=== PATIENT | female | born 1945 ===

== ENCOUNTER 2017-06-24 08:44 | Day surgery (SDC) | payer MEDICARE ==
[2017-06-24 09:30] VITALS: BMI 30.6
--- NOTE | 2017-06-24 10:34 | CP.SDSHP ---
Same Day Surgery H & P - History Proposed Procedure: COLONSCOPY Pre-Op Diagnosis: SCREENING - Previous Medical/Surgical History Cardiac: Hypertension Endocrine/Metabolic: Thyroid Disease, Diabetes, Other Neuro: Backaches Misc: Other Pain: 2.Mild Pain - Allergies Allergies: Allergies No Known Allergies Allergy (Verified 06/24/17 09:30) - Physical Exam General Appearance: N Vital Signs: Vital Signs 06/24/17 09:00 Temperature 98.2 F Pulse Rate 76 Respiratory 13 Rate Blood Pressure 180/79 H O2 Sat by Pulse 98 Oximetry Mental Status: Alert & Oriented x3 Neuro: WNL Heart: Other Lungs: WNL GI: WNL - {Optional Preform as Required} Breast: WNL Abdomen: Other Rectal: WNL Integument: WNL : WNL Ortho: Other ENT: WNL - Impression Pt. Evaluated Today:Candidate for Anesthesia & Procedure: Yes - Date & Time Time: 10:33 Short Stay Discharge - Short Stay Discharge Admitting Diagnosis/Reason for Visit: SCREENING Disposition: HOME/ ROUTINE
[2017-06-24] MEDS ORDERED: Propofol 10 mg/ml Inj (20 ML) ONE (10:38)
[2017-06-24 10:40] VITALS: O2SAT 100
[2017-06-24 11:06] VITALS: TEMP 98
[2017-06-24] MEDS ORDERED: Belladonna-Phenobarbital PO ONE (11:10)
[2017-06-24 12:08] VITALS: BP 152/63; PULSE 67; RESP 14
== END 2017-06-24 12:05 | disposition home or self-care (01) ==
LOC: C.ENDO 08:44
PROVIDERS: ATTEND Specialist
DX: Z12.11 Encounter for screening for malignant neoplasm of colon (principal); K64.4 Residual hemorrhoidal skin tags; K64.8 Other hemorrhoids; E11.9 Type 2 diabetes mellitus without complications; I10 Essential (primary) hypertension; K52.9 Noninfective gastroenteritis and colitis, unspecified
CPT/HCPCS: 45380; 82948; 88305; J2704

== ENCOUNTER 2017-09-18 14:21 | Emergency (ER) | payer MEDICARE ==
[2017-09-18 14:22] VITALS: BMI 30.6
[2017-09-18 14:37] VITALS: TEMP 97.9
[2017-09-18 15:38] LABS: BASO % 0.6 % (0.0-2.0); EOS # 0.3 K/uL (0.0-0.7); EOS % 5.2 % (0.0-4.0); HEMOGLOBIN 9.8 g/dL (11.0-16.0); LYMPH # 1.5 K/uL (1.0-4.3); MEAN CELL VOLUME 85.9 fL (81.0-99.0); MEAN CORPUSCULAR HEMOGLOBIN 29.6 pg (27.0-31.0); MEAN CORPUSCULAR HGB CONC 34.4 g/dL (33.0-37.0); MEAN PLATELET VOLUME 7.4 fL (7.2-11.7); MONO # 0.6 K/uL (0.0-0.8); MONO % 9.5 % (0.0-10.0); NEUT % 61.7 % (50.0-75.0); RBC 3.32 Mil/uL (3.80-5.20); RED CELL DISTRIBUTION WIDTH 14.4 % (11.5-14.5); WHITE BLOOD COUNT 6.4 K/uL (4.8-10.8)
[2017-09-18 15:54] LABS: ALB/GLOB RATIO 1.3 (1.0-2.1); ALBUMIN 4.1 g/dL (3.5-5.0); ALT/SGPT 21 U/L (9-52); AST/SGOT 27 U/L (14-36); BLOOD UREA NITROGEN 22 mg/dL (7-17); CALCIUM 9.4 mg/dl (8.6-10.4); GFR AFRICAN-AMERICAN 44; GFR NON-AFRICAN AMERICAN 37
[2017-09-18 16:04] LABS: B-TYPE NATRIURETIC PEPTIDE 162 pg/mL (0-900)
[2017-09-18 16:20] LABS: FREE T4 1.17 ng/dL (0.78-2.19)
--- NOTE | 2017-09-18 17:19 | VASCLAB ---
PROCEDURE: Lower Extremity Venous Duplex Exam. HISTORY: Pain/swelling r/o DVT PRIORS: Lower extremity duplex ultrasound dated 08/21/2016. TECHNIQUE: Bilateral common femoral, femoral, popliteal and posterior tibial, peroneal and great saphenous veins were evaluated. Flow was assessed with color Doppler, compressibility, assessment of phasic flow and augmentation response. Report prepared by Manish Gotti, JOHN, RVT FINDINGS: RIGHT: 1. Common Femoral Vein: 1.1. Compressibility - Fully compressible: Thrombus - None : Flow - Phasic: Augmentation -Normal: Reflux - None. 2. Femoral Vein: 2.1. Compressibility - Fully compressible: Thrombus - None : Flow - Phasic: Augmentation -Normal: Reflux - None. 3. Popliteal Vein: 3.1. Compressibility - Fully compressible: Thrombus - None : Flow - Phasic: Augmentation -Normal: Reflux - None. 4. Posterior Tibial Vein: 4.1. Compressibility - Fully compressible: Thrombus - None: Flow - Phasic: Augmentation -Normal: Reflux - None. 5. Peroneal Vein: 5.1. Compressibility - Fully compressible: Thrombus - None: Flow - Phasic: Augmentation -Normal: Reflux - None. 6. Great Saphenous Vein: 6.1. Compressibility - Fully compressible: Thrombus - None: Flow - Phasic: Augmentation - Normal: Reflux - None. LEFT: 1. Common Femoral Vein: 1.1. Compressibility - Fully compressible: Thrombus - None: Flow - Phasic: Augmentation -Normal: Reflux - None. 2. Femoral Vein: 2.1. Compressibility - Fully compressible: Thrombus - None: Flow - Phasic: Augmentation -Normal: Reflux - None. 3. Popliteal Vein: 3.1. Compressibility - Fully compressible: Thrombus - None : Flow - Phasic: Augmentation -Normal: Reflux - None. 4. Posterior Tibial Vein: 4.1. Compressibility - Fully compressible: Thrombus - None: Flow - Phasic: Augmentation -Normal: Reflux - None. 5. Peroneal Vein: 5.1. Compressibility - Fully compressible: Thrombus - None: Flow - Phasic: Augmentation -Normal: Reflux - None. 6. Great Saphenous Vein: 6.1. Compressibility - Fully compressible: Thrombus - None: Flow - Phasic: Augmentation - Normal: Reflux - None. OTHER FINDINGS: Right: None significant. Left: None significant. IMPRESSION: Right: No evidence of deep or superficial vein thrombosis of the right lower extremity. Normal valve function noted of the right side. Left: No evidence of deep or superficial vein thrombosis of the left lower extremity. Normal valve function noted of the left side.
[2017-09-18 17:23] LABS: SQUAMOUS EPITHIAL 1 /hpf (0-5); URINE BILIRUBIN NEGATIVE (NEGATIVE); URINE BLOOD NEGATIVE (NEGATIVE); URINE CLARITY Clear (Clear); URINE COLOR Colorless (YELLOW); URINE GLUCOSE (UA) NORMAL (Normal); URINE LEUKOCYTE ESTERASE 1+ Leu/uL (Negative); URINE PROTEIN NEGATIVE (NEGATIVE); URINE UROBILINOGEN NORMAL mg/dL (0.2-1.0)
[2017-09-18 17:31] VITALS: BP 143/69; PULSE 72; RESP 18
[2017-09-18 17:33] VITALS: O2SAT 98
--- NOTE | 2017-09-18 17:33 | C.PDOC ---
History Of Present Illness Pt c/o b/l LE swelling. Time Seen by Provider: 09/18/17 15:12 Chief Complaint (Nursing): Lower Extremity Problem/Injury History Per: Patient Onset/Duration Of Symptoms: Days (about 1 year) Current Symptoms Are (Timing): Still Present Severity: Moderate Associated Symptoms: Leg/Calf Pain, Ankle/Leg Swelling Additional History Per: Prior Records Past Medical History Reviewed: Historical Data, Nursing Documentation, Vital Signs Vital Signs: Last Vital Signs Temp 97.9 F 09/18/17 14:33 Pulse 66 09/18/17 16:05 Resp 16 09/18/17 16:05 BP 138/65 09/18/17 16:05 Pulse Ox 98 09/18/17 16:05 - Medical History PMH: Arthritis, Diabetes, Gastritis, HTN, Hypercholesterolemia, Hyperthyroidism , Hypothyroidism, Peripheral Edema Surgical History: Appendectomy, Cholecystectomy - [facility] Procedures EXCISION OF TOE NAIL, EXTERNAL APPROACH (09/10/16) EXERCISE TRMT MUSCULOSK UP BACK/UE W ASSIST EQUIP (09/10/16) FUSION 2-6 C JT W AUTOL SUB, ANT APPR A COL, OPEN (09/06/16) FUSION 2-6 C JT W INTBD FUS DEV, ANT APPR A COL, OPEN (09/06/16) GAIT TRAINING/AMBULAT TREATMENT USING ASSIST EQUIPMENT (09/10/16) GROOMING/PERSONAL HYGIENE TREATMENT USING ASSIST EQUIPMENT (09/10/16) HOME MANAGEMENT TREATMENT (08/26/16) ROM & JT MOBILITY TREATMENT OF MUSCULOSK LOW BACK/LE (08/26/16) THERAPEUTIC EXERCISE TREATMENT OF MUSCULOSK LOW BACK/LE (08/26/16) Family History: States: Unknown Family Hx - Social History Hx Tobacco Use: No Hx Alcohol Use: No Hx Substance Use: No - Immunization History Hx Tetanus Toxoid Vaccination: No Hx Influenza Vaccination: No Hx Pneumococcal Vaccination: Yes Review Of Systems Except As Marked, All Systems Reviewed And Found Negative. Constitutional: Negative for: Fever Cardiovascular: Positive for: Edema. Negative for: Chest Pain Respiratory: Negative for: Shortness of Breath, Hemoptysis Gastrointestinal: Negative for: Vomiting, Abdominal Pain Genitourinary: Negative for: Dysuria Musculoskeletal: Positive for: Leg Pain. Negative for: Neck Pain Skin: Negative for: Rash Neurological: Negative for: Weakness Physical Exam - Physical Exam Appears: Non-toxic, No Acute Distress Skin: Normal Color, Warm, Dry, No Rash Head: Atraumatic, Normacephalic Eye(s): bilateral: PERRL, EOMI Neck: Normal ROM, Supple Cardiovascular: Rhythm Regular Respiratory: Normal Breath Sounds, No Accessory Muscle Use Gastrointestinal/Abdominal: Soft, No Tenderness Extremity: Normal ROM, Pedal Edema (b/l) Pulses: Left Dorsalis Pedis: Normal, Right Dorsalis Pedis: Normal Neurological/Psych: Oriented x3, Normal Motor, Normal Sensation ED Course And Treatment - Laboratory Results Result Diagrams: 09/18/17 15:38 09/18/17 15:33 Lab Interpretation: No Changes Compared To Prior Results O2 Sat by Pulse Oximetry: 98 Pulse Ox Interpretation: Normal - CT Scan/US b/l LE duplex Other Rad Studies (CT/US): Read By Radiologist, Radiology Report Reviewed CT/US Interpretation: IMPRESSION: Right: No evidence of deep or superficial vein thrombosis of the right lower extremity. Normal valve function noted of the right side. Left: No evidence of deep or superficial vein thrombosis of the left lower extremity. Normal valve function noted of the left side. Progress - Interventions Interventions:: Observation - Medications Administered Intravenous: Diuretic - Data Reviewed Data Reviewed: Lab, Diagnostic imaging, Old records - Continuity of Care Discussed patient case with:: Patient, ED Nurse - Patient Plan Patient Plan: Discharge, F/U with PCP Medical Decision Making Medical Decision Making: Pt is already on Tosemide 100mg daily, will increase to 200mg daily (the maximum dose). Disposition Counseled Patient/Family Regarding: Studies Performed, Diagnosis, Need For Followup, Rx Given - Disposition Referrals: Sheila Hollis MD [Staff Provider] - Disposition: HOME/ ROUTINE Disposition Time: 17:36 Condition: FAIR Additional Instructions: Increase your Torsemide to 200mg daily. Follow up with your doctor within 1 week for further evaluation and treatment. Return to the ER if you develop worsening of symptoms or if you have any other concerns. Prescriptions: Torsemide [Demadex] 2 tab PO DAILY #60 tab Instructions: Dependent Edema (DC) Forms: [email or web address] (Maltese) Print Language: [email or web address] - Clinical Impression Clinical Impression: Bilateral lower extremity edema
--- NOTE | 2017-09-19 22:33 | CARD ---
APPROVED REPORT EKG Measurement Heart [id number] <Conclusion> Normal sinus rhythm Incomplete right bundle branch block Nonspecific T wave abnormality Prolonged QT Abnormal ECG
== END 2017-09-18 18:15 | disposition home or self-care (01) ==
LOC: C.ER 14:21
DX: R60.0 Localized edema (principal)
CPT/HCPCS: 80053; 81001; 82948; 83880; 84439; 84443; 84484; 85025; 93005; 93970; 96374; 99285; J1940

== ENCOUNTER 2017-09-24 18:04 | Inpatient (IN) | payer MEDICARE ==
[2017-09-24 18:04] VITALS: BMI 30.6
--- NOTE | 2017-09-24 18:22 | C.PDOC ---
History Of Present Illness 72-year-old female referred to the ED from office for increasing swelling of the bilateral lower extremities over the past 2-3 weeks. Patient also complains of dyspnea on exertion. No chest pain, dizziness, nausea, vomiting, fever, or weakness. Patient states she is compliant with all medications including Lasix. Time Seen by Provider: 09/24/17 18:21 Chief Complaint (Nursing): Lower Extremity Problem/Injury History Per: Patient History/Exam Limitations: no limitations Onset/Duration Of Symptoms: Days (x 3 weeks) Current Symptoms Are (Timing): Still Present Exacerbating Factor(s): Exertion Associated Symptoms: Ankle/Leg Swelling Reports Recently: Treated By A Physician Past Medical History Reviewed: Historical Data, Nursing Documentation, Vital Signs Vital Signs: Last Vital Signs Temp 98 F 09/24/17 18:07 Pulse 74 09/24/17 18:07 Resp 18 09/24/17 18:07 BP 155/75 H 09/24/17 18:07 Pulse Ox 99 09/24/17 18:35 - Medical History PMH: Arthritis, Diabetes, Gastritis, HTN, Hypercholesterolemia, Hyperthyroidism , Hypothyroidism, Peripheral Edema Denies: HIV, Chronic Kidney Disease Surgical History: Appendectomy, Cholecystectomy - [facility] Procedures EXCISION OF TOE NAIL, EXTERNAL APPROACH (09/10/16) EXERCISE TRMT MUSCULOSK UP BACK/UE W ASSIST EQUIP (09/10/16) FUSION 2-6 C JT W AUTOL SUB, ANT APPR A COL, OPEN (09/06/16) FUSION 2-6 C JT W INTBD FUS DEV, ANT APPR A COL, OPEN (09/06/16) GAIT TRAINING/AMBULAT TREATMENT USING ASSIST EQUIPMENT (09/10/16) GROOMING/PERSONAL HYGIENE TREATMENT USING ASSIST EQUIPMENT (09/10/16) HOME MANAGEMENT TREATMENT (08/26/16) ROM & JT MOBILITY TREATMENT OF MUSCULOSK LOW BACK/LE (08/26/16) THERAPEUTIC EXERCISE TREATMENT OF MUSCULOSK LOW BACK/LE (08/26/16) Family History: States: Unknown Family Hx - Social History Hx Tobacco Use: No Hx Alcohol Use: No Hx Substance Use: No - Immunization History Hx Tetanus Toxoid Vaccination: No Hx Influenza Vaccination: No Hx Pneumococcal Vaccination: Yes Review Of Systems Constitutional: Negative for: Fever, Weakness Cardiovascular: Negative for: Chest Pain Respiratory: Positive for: SOB with Excertion. Negative for: Cough Gastrointestinal: Negative for: Nausea, Vomiting Musculoskeletal: Positive for: Other (Bilateral lower leg swelling) Neurological: Negative for: Dizziness Physical Exam - Physical Exam Appears: Non-toxic, No Acute Distress, Other (appears mildly short of breath on exertion) Skin: Warm, Dry, No Rash Head: Atraumatic, Normacephalic Eye(s): bilateral: Normal Inspection, PERRL, EOMI Oral Mucosa: Moist Neck: Normal ROM Chest: Symmetrical Cardiovascular: Rhythm Regular, No Murmur Respiratory: Rales (at the bases bilaterally), No Rhonchi, No Wheezing Gastrointestinal/Abdominal: Soft, No Tenderness, No Distention Extremity: Normal ROM, No Calf Tenderness, No Deformity, Swelling (3+ pitting edema bilaterally) Pulses: Left Dorsalis Pedis: Normal, Right Dorsalis Pedis: Normal Neurological/Psych: Oriented x3, Normal Speech Gait: Steady ED Course And Treatment O2 Sat by Pulse Oximetry: 99 (RA) Pulse Ox Interpretation: Normal Progress Note: Initial orders: labs, EKG, chest x-ray. Patient given IV Lasix 60 mg x1 Progress - Re-Evaluation Re-evaluation Note: 09/24/17 18:21 D/W DR Bharat GUPTA STATES PT REFERRED FROM OFFICE FOR FAILED OUTPT CHF TX. ADMIT - Data Reviewed Data Reviewed: Lab, Diagnostic imaging, EKG, Old records Disposition Counseled Patient/Family Regarding: Diagnosis, Need For Followup - Disposition Disposition: HOSPITALIZED Disposition Time: 18:21 Condition: STABLE Forms: [facility] (Yi) - POA Present On Arrival: None - Clinical Impression Clinical Impression: CHF exacerbation - Scribe Statement The provider has reviewed the documentation as recorded by the Scribe (Kate Alfaro) Provider Attestation: All medical record entries made by the Scribe were at my direction and personally dictated by me. I have reviewed the chart and agree that the record accurately reflects my personal performance of the history, physical exam, medical decision making, and the department course for this patient. I have also personally directed, reviewed, and agree with the discharge instructions and disposition. Decision To Admit - Pt Status Changed To: Hospital Disposition Of: Observation - . Bed Request Type: Telemetry Admitting Physician: Sheila Gupta Patient Diagnosis: CHF exacerbation
[2017-09-24 18:46] LABS: BASO # 0.1 K/uL (0.0-0.2); BASO % 0.5 % (0.0-2.0); EOS % 0.1 % (0.0-4.0); HEMOGLOBIN 11.6 g/dL (11.0-16.0); LYMPH # 1.7 K/uL (1.0-4.3); LYMPH % 13.4 % (20.0-40.0); MEAN CELL VOLUME 85.3 fL (81.0-99.0); MEAN CORPUSCULAR HEMOGLOBIN 29.6 pg (27.0-31.0); MEAN CORPUSCULAR HGB CONC 34.7 g/dL (33.0-37.0); MEAN PLATELET VOLUME 7.4 fL (7.2-11.7); MONO # 0.8 K/uL (0.0-0.8); NEUT # 10.2 K/uL (1.8-7.0); RBC 3.92 Mil/uL (3.80-5.20); RED CELL DISTRIBUTION WIDTH 14.3 % (11.5-14.5)
[2017-09-24 18:51] LABS: ALB/GLOB RATIO 1.2 (1.0-2.1); ALBUMIN 5.1 g/dL (3.5-5.0); ALT/SGPT 26 U/L (9-52); AST/SGOT 37 U/L (14-36); BLOOD UREA NITROGEN 44 mg/dL (7-17); CALCIUM 9.1 mg/dl (8.6-10.4); GFR AFRICAN-AMERICAN 41; GFR NON-AFRICAN AMERICAN 34; WHITE BLOOD COUNT 12.7 K/uL (4.8-10.8)
[2017-09-24 18:57] LABS: B-TYPE NATRIURETIC PEPTIDE 312 pg/mL (0-900)
[2017-09-25] MEDS: Levothyroxine 50 MCG TAB PO SCH (05:50)
--- NOTE | 2017-09-25 08:18 | RAD ---
Chest x-ray single frontal view History: Shortness of breath Comparison: 08/21/2016 Findings: Patchy left basilar airspace opacity with a suggestion of a trace left pleural effusion. Mild venous congestion. Upper lobe granulomatous changes. Scoliotic curvature of the spine. Calcification of the aortic arch. Degenerative changes in the spine and shoulders. Impression: Patchy left basilar airspace opacity with a suggestion of a trace left pleural effusion. Mild venous congestion. Upper lobe granulomatous changes. Scoliotic curvature of the spine. Calcification of the aortic arch.
[2017-09-25] MEDS: Pantoprazole 40 mg EC Tab PO SCH (09:35)
[2017-09-25] MEDS: Diclofenac Sodium Delayed Release 75 mg EC Tab PO SCH (09:35)
[2017-09-25] MEDS ORDERED: Enoxaparin 40 mg Syringe SC SCH (10:00)
[2017-09-25 14:59] LABS: CALCIUM 9.6 mg/dl (8.6-10.4)
[2017-09-25 16:47] VITALS: RESP 20
[2017-09-25] MEDS: (Novolog) Insulin Aspart, Recombinant 100 u/ml 10 ml vial SC SCH ×2 (17:20→21:39)
--- NOTE | 2017-09-25 18:19 | CP.PCM.CON ---
History of Present Illness - History of Present Illness History of Present Illness: 72-year-old female referred to the ED from office for increasing swelling of the bilateral lower extremities over the past 2-3 weeks. Patient also complains of dyspnea on exertion. No chest pain, dizziness, nausea, vomiting, fever, or weakness. Patient states she is compliant with all medications including Lasix. 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 HTN 3). DM 2 4). Hypothyroid 5). HLD 6. CKD currently stage IV Review of Systems - Review of Systems All systems: reviewed and no additional remarkable complaints except Past Patient History - Infectious Disease Hx of Infectious Diseases: None - Past Medical History & Family History Past Medical History?: Yes - Past Social History Smoking Status: Never Smoked - CARDIAC Hx Hypercholesterolemia: Yes Hx Hypertension: Yes Hx Peripheral Edema: Yes - PULMONARY Hx Respiratory Disorders: No - NEUROLOGICAL Hx Neurological Disorder: No - HEENT Hx HEENT Problems: Yes Hx Deafness: Yes (right ear) - RENAL Hx Chronic Kidney Disease: No - ENDOCRINE/METABOLIC Hx Hyperthyroidism: Yes Hx Hypothyroidism: Yes - HEMATOLOGICAL/ONCOLOGICAL Hx Human Immunodeficiency Virus (HIV): No - INTEGUMENTARY Hx Dermatological Problems: No - MUSCULOSKELETAL/RHEUMATOLOGICAL Hx Arthritis: Yes - GASTROINTESTINAL Hx Gastritis: Yes - GENITOURINARY/GYNECOLOGICAL Hx Genitourinary Disorders: No - PSYCHIATRIC Hx Substance Use: No - SURGICAL HISTORY Hx Appendectomy: Yes Hx Cholecystectomy: Yes - ANESTHESIA Hx Anesthesia: Yes Hx Anesthesia Reactions: Yes (too sleepy) Hx Malignant Hyperthermia: No Meds Allergies/Adverse Reactions: Allergies Allergy/AdvReac Type Severity Reaction Status Date / Time No Known Allergies Allergy Verified 06/24/17 09:30 - Medications Medications: Current Medications Carvedilol (Coreg) 3.125 mg PO DAILY [facility] Last Admin: 09/25/17 09:35 Dose: 3.125 mg Diclofenac Sodium (Voltaren) 75 mg PO DAILY [facility] Last Admin: 09/25/17 09:35 Dose: 75 mg Enoxaparin Sodium (Lovenox) 40 mg SC DAILY [facility] Last Admin: 09/25/17 09:35 Dose: 40 mg Ergocalciferol (Drisdol 50,000 Intl Units Cap) 1 cap PO QWK [facility] Folic Acid (Folic Acid) 1 mg PO DAILY [facility] Last Admin: 09/25/17 09:35 Dose: 1 mg Furosemide (Lasix) 60 mg IVP Q12 [facility] Last Admin: 09/25/17 09:36 Dose: 60 mg Gabapentin (Neurontin) 600 mg PO DAILY [facility] Last Admin: 09/25/17 09:33 Dose: 600 mg Glimepiride (Amaryl) 2 mg PO DAILY [facility] Last Admin: 09/25/17 09:35 Dose: 2 mg Insulin Aspart (Novolog) 0 unit SC ACHS [facility] PRN Reason: Protocol Last Admin: 09/25/17 17:20 Dose: Not Given Levothyroxine Sodium (Synthroid) 50 mcg PO DAILY@0630 [facility] Last Admin: 09/25/17 05:50 Dose: 50 mcg Pantoprazole Sodium (Protonix Ec Tab) 40 mg PO DAILY [facility] Last Admin: 09/25/17 09:35 Dose: 40 mg Rosuvastatin Calcium (Crestor) 10 mg PO [facility] Sitagliptin Phosphate (Januvia) 100 mg PO DAILY [facility] Last Admin: 09/25/17 09:35 Dose: 100 mg Physical Exam - Constitutional Appears: No Acute Distress - Head Exam Head Exam: ATRAUMATIC, NORMAL INSPECTION, NORMOCEPHALIC - Eye Exam Eye Exam: EOMI, Normal appearance, PERRL - ENT Exam ENT Exam: Mucous Membranes Moist, Normal Oropharynx - Neck Exam Neck exam: Positive for: Full Rom, Normal Inspection. Negative for: Tenderness - Respiratory Exam Respiratory Exam: Clear to Auscultation Bilateral, NORMAL BREATHING PATTERN. absent: Rales, Rhonchi, Wheezes - Cardiovascular Exam Cardiovascular Exam: REGULAR RHYTHM, +S1, +S2. absent: +S4, Systolic Murmur - GI/Abdominal Exam GI & Abdominal Exam: Normal Bowel Sounds, Soft. absent: Tenderness - Extremities Exam Extremities exam: Positive for: normal inspection, pedal pulses present. Negative for: full ROM (arthritic changes in the knees B/L), pedal edema, tenderness - Neurological Exam Neurological exam: Alert, Oriented x3 - Psychiatric Exam Psychiatric exam: Normal Affect, Normal Mood - Skin Skin Exam: Normal Color, Warm Results - Vital Signs Recent Vital Signs: Last Vital Signs Temp 98.1 F 09/25/17 15:20 Pulse 55 L 09/25/17 15:59 Resp 20 09/25/17 15:20 BP 111/68 09/25/17 15:20 Pulse Ox 97 04/12/18 15:20 - Labs Result Diagrams: 09/24/17 18:29 09/25/17 14:06 Labs: Laboratory Results - last 24 hr 09/24/17 09/24/17 09/24/17 18:29 18:29 21:20 WBC 12.7 H D RBC 3.92 Hgb 11.6 Hct 33.5 L MCV 85.3 MCH 29.6 MCHC 34.7 RDW 14.3 Plt Count 280 MPV 7.4 Neut % (Auto) 80.0 H Lymph % (Auto) 13.4 L Placer % (Auto) 6.0 Eos % (Auto) 0.1 Baso % (Auto) 0.5 Neut # (Auto) 10.2 H Lymph # (Auto) 1.7 Placer # (Auto) 0.8 Eos # (Auto) 0.0 Baso # (Auto) 0.1 Sodium 130 L Potassium 5.6 H Chloride 84 L Carbon Dioxide 27 Anion Gap 24 H BUN 44 H Creatinine 1.5 H Est GFR ( Amer) 41 Est GFR (Non-Af Amer) 34 POC Glucose (mg/dL) 181 H Random Glucose 188 H Calcium 9.1 Total Bilirubin 1.3 AST 37 H D ALT 26 Alkaline Phosphatase 79 Troponin I < 0.0120 NT-Pro-B Natriuret Pep 312 Total Protein 9.5 H Albumin 5.1 H D Globulin 4.4 H Albumin/Globulin Ratio 1.2 09/25/17 09/25/17 09/25/17 06:10 11:16 14:06 WBC RBC Hgb Hct MCV MCH MCHC RDW Plt Count MPV Neut % (Auto) Lymph % (Auto) Placer % (Auto) Eos % (Auto) Baso % (Auto) Neut # (Auto) Lymph # (Auto) Placer # (Auto) Eos # (Auto) Baso # (Auto) Sodium 135 Potassium 3.9 Chloride 86 L Carbon Dioxide 33 H Anion Gap 20 BUN 50 H Creatinine 1.8 H Est GFR ( Amer) 33 Est GFR (Non-Af Amer) 28 POC Glucose (mg/dL) 99 138 H Random Glucose 162 H Calcium 9.6 Total Bilirubin AST ALT Alkaline Phosphatase Troponin I NT-Pro-B Natriuret Pep Total Protein Albumin Globulin Albumin/Globulin Ratio 09/25/17 16:25 WBC RBC Hgb Hct MCV MCH MCHC RDW Plt Count MPV Neut % (Auto) Lymph % (Auto) Placer % (Auto) Eos % (Auto) Baso % (Auto) Neut # (Auto) Lymph # (Auto) Placer # (Auto) Eos # (Auto) Baso # (Auto) Sodium Potassium Chloride Carbon Dioxide Anion Gap BUN Creatinine Est GFR ( Amer) Est GFR (Non-Af Amer) POC Glucose (mg/dL) 95 Random Glucose Calcium Total Bilirubin AST ALT Alkaline Phosphatase Troponin I NT-Pro-B Natriuret Pep Total Protein Albumin Globulin Albumin/Globulin Ratio - EKG Data EKG Interpreted by: Myself - Imaging and Cardiology Chest x-ray Status: Image reviewed by me Assessment & Plan - Assessment and Plan (Free Text) Assessment: HTN controlled, DM uncontrolled, LIPIDS on statin, CKD IV progressed over 1 year, Hypothyroid on rx, cervical DJD s/p surgery 08/2016 cervical SOB Unclear in etiology Echo 08/2016 directly viewed by me: Normal EF, BDLN LVH, grade 1 diastolic dysfunction > EKG this admission was Normal > CXRAY: mild congestion > LA ruled out > BNP not in range for systolic CHF MEDS: Carvedilol (Coreg) 3.125 mg PO DAILY [facility] Last Admin: 09/25/17 09:35 Dose: 3.125 mg Diclofenac Sodium (Voltaren) 75 mg PO DAILY [facility] Last Admin: 09/25/17 09:35 Dose: 75 mg Enoxaparin Sodium (Lovenox) 40 mg SC DAILY [facility] Last Admin: 09/25/17 09:35 Dose: 40 mg Ergocalciferol (Drisdol 50,000 Intl Units Cap) 1 cap PO QWK [facility] Folic Acid (Folic Acid) 1 mg PO DAILY [facility] Last Admin: 09/25/17 09:35 Dose: 1 mg Furosemide (Lasix) 60 mg IVP Q12 [facility] Last Admin: 09/25/17 09:36 Dose: 60 mg Gabapentin (Neurontin) 600 mg PO DAILY [facility] Last Admin: 09/25/17 09:33 Dose: 600 mg Glimepiride (Amaryl) 2 mg PO DAILY [facility] Last Admin: 09/25/17 09:35 Dose: 2 mg Insulin Aspart (Novolog) 0 unit SC ACHS [facility] PRN Reason: Protocol Last Admin: 09/25/17 17:20 Dose: Not Given Levothyroxine Sodium (Synthroid) 50 mcg PO DAILY@0630 [facility] Last Admin: 09/25/17 05:50 Dose: 50 mcg Pantoprazole Sodium (Protonix Ec Tab) 40 mg PO DAILY [facility] Last Admin: 09/25/17 09:35 Dose: 40 mg Rosuvastatin Calcium (Crestor) 10 mg PO HS [facility] Sitagliptin Phosphate (Januvia) 100 mg PO DAILY [facility] Last Admin: 09/25/17 09:35 Dose: 100 mg Consider diastolic dysfunction as cause, consider secondary to arthritis or venous insufficiency > suggest repeat echo to evaluate cardiac stucture and function given acute change as well as measure LAP and PASP. > Patient has responded well to lasix IV, continue maintainence lasis 40 as outpatient > Normal EKG and negative cardiac enzymes; given CAD risk factors will benefit from outpatient re-eval and stress testing. > I would also suggest evaluation for venous insufficiency and reflux: this can be done by us as outpatient. > add ASA 81 > DVT prophylaxis
--- NOTE | 2017-09-25 18:41 | CP.PCM.HP ---
Past Patient History - Infectious Disease Hx of Infectious Diseases: None - Past Medical History & Family History Past Medical History?: Yes - Past Social History Smoking Status: Never Smoked - CARDIAC Hx Hypercholesterolemia: Yes Hx Hypertension: Yes Hx Peripheral Edema: Yes - PULMONARY Hx Respiratory Disorders: No - NEUROLOGICAL Hx Neurological Disorder: No - HEENT Hx HEENT Problems: Yes Hx Deafness: Yes (right ear) - RENAL Hx Chronic Kidney Disease: No - ENDOCRINE/METABOLIC Hx Hyperthyroidism: Yes Hx Hypothyroidism: Yes - HEMATOLOGICAL/ONCOLOGICAL Hx Human Immunodeficiency Virus (HIV): No - INTEGUMENTARY Hx Dermatological Problems: No - MUSCULOSKELETAL/RHEUMATOLOGICAL Hx Arthritis: Yes - GASTROINTESTINAL Hx Gastritis: Yes - GENITOURINARY/GYNECOLOGICAL Hx Genitourinary Disorders: No - PSYCHIATRIC Hx Substance Use: No - SURGICAL HISTORY Hx Appendectomy: Yes Hx Cholecystectomy: Yes - ANESTHESIA Hx Anesthesia: Yes Hx Anesthesia Reactions: Yes (too sleepy) Hx Malignant Hyperthermia: No Meds Allergies/Adverse Reactions: Allergies Allergy/AdvReac Type Severity Reaction Status Date / Time No Known Allergies Allergy Verified 06/24/17 09:30 Physical Exam - Constitutional Appears: Well - Head Exam Head Exam: ATRAUMATIC, NORMAL INSPECTION, NORMOCEPHALIC - Eye Exam Eye Exam: EOMI, Normal appearance, PERRL Pupil Exam: NORMAL ACCOMODATION, PERRL - ENT Exam ENT Exam: Mucous Membranes Moist, Normal Exam - Neck Exam Neck exam: Positive for: Normal Inspection - Respiratory Exam Respiratory Exam: Decreased Breath Sounds - Cardiovascular Exam Cardiovascular Exam: REGULAR RHYTHM, +S1 - GI/Abdominal Exam GI & Abdominal Exam: Diminished Bowel Sounds, Soft - Rectal Exam Rectal Exam: Deferred Results - Vital Signs Recent Vital Signs: Last Vital Signs Temp 98.1 F 09/25/17 15:20 Pulse 55 L 09/25/17 15:59 Resp 20 09/25/17 15:20 BP 111/68 09/25/17 15:20 Pulse Ox 97 09/25/17 15:20 - Labs Result Diagrams: 09/24/17 18:29 09/25/17 14:06 Labs: Laboratory Results - last 24 hr 09/24/17 09/24/17 09/24/17 18:29 18:29 21:20 WBC 12.7 H D RBC 3.92 Hgb 11.6 Hct 33.5 L MCV 85.3 MCH 29.6 MCHC 34.7 RDW 14.3 Plt Count 280 MPV 7.4 Neut % (Auto) 80.0 H Lymph % (Auto) 13.4 L [place] % (Auto) 6.0 Eos % (Auto) 0.1 Baso % (Auto) 0.5 Neut # (Auto) 10.2 H Lymph # (Auto) 1.7 [place] # (Auto) 0.8 Eos # (Auto) 0.0 Baso # (Auto) 0.1 Sodium 130 L Potassium 5.6 H Chloride 84 L Carbon Dioxide 27 Anion Gap 24 H BUN 44 H Creatinine 1.5 H Est GFR ( Amer) 41 Est GFR (Non-Af Amer) 34 POC Glucose (mg/dL) 181 H Random Glucose 188 H Calcium 9.1 Total Bilirubin 1.3 AST 37 H D ALT 26 Alkaline Phosphatase 79 Troponin I < 0.0120 NT-Pro-B Natriuret Pep 312 Total Protein 9.5 H Albumin 5.1 H D Globulin 4.4 H Albumin/Globulin Ratio 1.2 09/25/17 09/25/17 09/25/17 06:10 11:16 14:06 WBC RBC Hgb Hct MCV MCH MCHC RDW Plt Count MPV Neut % (Auto) Lymph % (Auto) [place] % (Auto) Eos % (Auto) Baso % (Auto) Neut # (Auto) Lymph # (Auto) [place] # (Auto) Eos # (Auto) Baso # (Auto) Sodium 135 Potassium 3.9 Chloride 86 L Carbon Dioxide 33 H Anion Gap 20 BUN 50 H Creatinine 1.8 H Est GFR ( Amer) 33 Est GFR (Non-Af Amer) 28 POC Glucose (mg/dL) 99 138 H Random Glucose 162 H Calcium 9.6 Total Bilirubin AST ALT Alkaline Phosphatase Troponin I NT-Pro-B Natriuret Pep Total Protein Albumin Globulin Albumin/Globulin Ratio 09/25/17 16:25 WBC RBC Hgb Hct MCV MCH MCHC RDW Plt Count MPV Neut % (Auto) Lymph % (Auto) [place] % (Auto) Eos % (Auto) Baso % (Auto) Neut # (Auto) Lymph # (Auto) [place] # (Auto) Eos # (Auto) Baso # (Auto) Sodium Potassium Chloride Carbon Dioxide Anion Gap BUN Creatinine Est GFR ( Amer) Est GFR (Non-Af Amer) POC Glucose (mg/dL) 95 Random Glucose Calcium Total Bilirubin AST ALT Alkaline Phosphatase Troponin I NT-Pro-B Natriuret Pep Total Protein Albumin Globulin Albumin/Globulin Ratio
[2017-09-26] MEDS: Levothyroxine 50 MCG TAB PO SCH (05:59)
[2017-09-26] MEDS: (Novolog) Insulin Aspart, Recombinant 100 u/ml 10 ml vial SC SCH ×4 (08:07→22:50)
[2017-09-26] MEDS ORDERED: Enoxaparin 30 mg Syringe SC SCH (10:00)
[2017-09-26] MEDS: Pantoprazole 40 mg EC Tab PO SCH (10:11)
[2017-09-26] MEDS ORDERED: Magnesium Hydroxide Susp 30 ml UD PO ONE (11:52)
[2017-09-26] MEDS: Diclofenac Sodium Delayed Release 75 mg EC Tab PO SCH (11:55)
--- NOTE | 2017-09-26 14:36 | CP.PCM.PN ---
Subjective - Date & Time of Evaluation Date of Evaluation: 09/26/17 Time of Evaluation: 14:33 - Subjective Subjective: Events Reviewed Objective - Vital Signs/Intake and Output Vital Signs (last 24 hours): Temp Pulse Resp BP Pulse Ox 98 F 73 20 117/66 98 09/26/17 07:00 09/26/17 12:38 09/26/17 07:00 09/26/17 10:09 09/26/17 10:00 Intake and Output: 09/26/17 09/26/17 06:59 18:59 Intake Total 420 Balance 420 - Medications Medications: Current Medications Acetaminophen (Tylenol 325mg Tab) 650 mg PO Q6 PRN PRN Reason: Pain, Mild (1-3) Last Admin: 09/25/17 21:35 Dose: 650 mg Carvedilol (Coreg) 3.125 mg PO DAILY [facility] Last Admin: 09/26/17 10:11 Dose: 3.125 mg Diclofenac Sodium (Voltaren) 75 mg PO DAILY [facility] Last Admin: 09/26/17 11:55 Dose: 75 mg Docusate Sodium (Colace) 100 mg PO BID [facility] Last Admin: 09/26/17 11:58 Dose: 100 mg Enoxaparin Sodium (Lovenox) 30 mg SC DAILY [facility] Last Admin: 09/26/17 10:09 Dose: 30 mg Ergocalciferol (Drisdol 50,000 Intl Units Cap) 1 cap PO QWK [facility] Folic Acid (Folic Acid) 1 mg PO DAILY [facility] Last Admin: 09/26/17 10:10 Dose: 1 mg Furosemide (Lasix) 60 mg IVP Q12 [facility] Last Admin: 09/26/17 10:09 Dose: 60 mg Gabapentin (Neurontin) 600 mg PO DAILY [facility] Last Admin: 09/26/17 10:10 Dose: 600 mg Glimepiride (Amaryl) 2 mg PO DAILY [facility] Last Admin: 09/26/17 10:10 Dose: 2 mg Insulin Aspart (Novolog) 0 unit SC ACHS [facility] PRN Reason: Protocol Last Admin: 09/26/17 11:35 Dose: Not Given Levothyroxine Sodium (Synthroid) 50 mcg PO DAILY@0630 [facility] Last Admin: 09/26/17 05:59 Dose: 50 mcg Pantoprazole Sodium (Protonix Ec Tab) 40 mg PO DAILY [facility] Last Admin: 09/26/17 10:11 Dose: 40 mg Rosuvastatin Calcium (Crestor) 10 mg PO HS [facility] Last Admin: 09/25/17 21:35 Dose: 10 mg Sitagliptin Phosphate (Januvia) 100 mg PO DAILY [facility] Last Admin: 09/26/17 10:11 Dose: 100 mg - Labs Labs: 09/24/17 18:29 09/25/17 14:06 Assessment and Plan - Assessment and Plan (Free Text) Assessment: Assessment: HTN controlled, DM uncontrolled, LIPIDS on statin, CKD IV progressed over 1 year, Hypothyroid on rx, cervical DJD s/p surgery 08/2016 cervical SOB Unclear in etiology Echo 08/2016 directly viewed by me: Normal EF, BDLN LVH, grade 1 diastolic dysfunction > EKG this admission was Normal > CXRAY: mild congestion > DE ruled out > BNP not in range for systolic CHF Consider diastolic dysfunction as cause, consider secondary to arthritis or venous insufficiency > repeat echo to evaluate cardiac stucture and function shows normal left atrial filling pressures suggesting this is not due to diastolic CHF. > Patient has responded well to lasix IV, continue maintainence lasis 40 as outpatient > Normal EKG and negative cardiac enzymes; given CAD risk factors will benefit from outpatient re-eval and stress testing. > I would also suggest evaluation for venous insufficiency and reflux: this can be done by us as outpatient should be done while patient is standing, 20- 30mmhg compression stockings will be helpful. > Continue ASA 81 > DVT prophylaxis
--- NOTE | 2017-09-26 15:04 | VASCLAB ---
PROCEDURE: Lower Extremity Venous Duplex Exam. HISTORY: LE swelling PRIORS: Lower extremity ultrasound dated 09/18/2017. TECHNIQUE: Bilateral common femoral, femoral, popliteal and posterior tibial, peroneal and great saphenous veins were evaluated. Flow was assessed with color Doppler, compressibility, assessment of phasic flow and augmentation response. Report prepared by Manish Gotti, JOHN, RVT FINDINGS: RIGHT: 1. Common Femoral Vein: 1.1. Compressibility - Fully compressible: Thrombus - None : Flow - Phasic: Augmentation -Normal: Reflux - None. 2. Femoral Vein: 2.1. Compressibility - Fully compressible: Thrombus - None : Flow - Phasic: Augmentation -Normal: Reflux - None. 3. Popliteal Vein: 3.1. Compressibility - Fully compressible: Thrombus - None : Flow - Phasic: Augmentation -Normal: Reflux - None. 4. Posterior Tibial Vein: 4.1. Compressibility - Fully compressible: Thrombus - None: Flow - Phasic: Augmentation -Normal: Reflux - None. 5. Peroneal Vein: 5.1. Compressibility - Fully compressible: Thrombus - None: Flow - Phasic: Augmentation -Normal: Reflux - None. 6. Great Saphenous Vein: 6.1. Compressibility - Fully compressible: Thrombus - None: Flow - Phasic: Augmentation - Normal: Reflux - None. LEFT: 1. Common Femoral Vein: 1.1. Compressibility - Fully compressible: Thrombus - None: Flow - Phasic: Augmentation -Normal: Reflux - None. 2. Femoral Vein: 2.1. Compressibility - Fully compressible: Thrombus - None: Flow - Phasic: Augmentation -Normal: Reflux - None. 3. Popliteal Vein: 3.1. Compressibility - Fully compressible: Thrombus - None : Flow - Phasic: Augmentation -Normal: Reflux - None. 4. Posterior Tibial Vein: 4.1. Compressibility - Fully compressible: Thrombus - None: Flow - Phasic: Augmentation -Normal: Reflux - None. 5. Peroneal Vein: 5.1. Compressibility - Fully compressible: Thrombus - None: Flow - Phasic: Augmentation -Normal: Reflux - None. 6. Great Saphenous Vein: 6.1. Compressibility - Fully compressible: Thrombus - None: Flow - Phasic: Augmentation - Normal: Reflux - None. OTHER FINDINGS: Right: None significant. Left: None significant. IMPRESSION: Right: No evidence of deep or superficial vein thrombosis of the right lower extremity. Normal valve function noted of the right side. Left: No evidence of deep or superficial vein thrombosis of the left lower extremity. Normal valve function noted of the left side.
--- NOTE | 2017-09-26 15:30 | CP.PCM.PN ---
Subjective - Date & Time of Evaluation Date of Evaluation: 09/26/17 Time of Evaluation: 15:27 - Subjective Subjective: PGY2 progress note for Dr. Hollis 72 year old female with past medical history of DM, HTN, hypothyroid, HLD, CKD stage IV was admitted for possible CHF exacerbation. ProBNP on admission was normal. CXR on admission showed patchy left basilar airspace opacity. Pt seen and examined at bedside. No acute events overnight. Pt is resting comfortably. Pt states that her breathing has improved considerably along with the swelling in her legs. denies having any CP, SOB, abd pain, N/V/D/C, F/C, LE pain. Objective - Vital Signs/Intake and Output Vital Signs (last 24 hours): Temp Pulse Resp BP Pulse Ox 98 F 73 20 117/66 98 09/26/17 07:00 09/26/17 12:38 09/26/17 07:00 09/26/17 10:09 09/26/17 13:00 Intake and Output: 09/26/17 09/26/17 06:59 18:59 Intake Total 420 600 Balance 420 600 - Medications Medications: Current Medications Acetaminophen (Tylenol 325mg Tab) 650 mg PO Q6 PRN PRN Reason: Pain, Mild (1-3) Last Admin: 09/25/17 21:35 Dose: 650 mg Carvedilol (Coreg) 3.125 mg PO DAILY [facility] Last Admin: 09/26/17 10:11 Dose: 3.125 mg Diclofenac Sodium (Voltaren) 75 mg PO DAILY [facility] Last Admin: 09/26/17 11:55 Dose: 75 mg Docusate Sodium (Colace) 100 mg PO BID [facility] Last Admin: 09/26/17 11:58 Dose: 100 mg Enoxaparin Sodium (Lovenox) 30 mg SC DAILY [facility] Last Admin: 09/26/17 10:09 Dose: 30 mg Ergocalciferol (Drisdol 50,000 Intl Units Cap) 1 cap PO QWK [facility] Folic Acid (Folic Acid) 1 mg PO DAILY [facility] Last Admin: 09/26/17 10:10 Dose: 1 mg Furosemide (Lasix) 60 mg IVP Q12 [facility] Last Admin: 09/26/17 10:09 Dose: 60 mg Gabapentin (Neurontin) 600 mg PO DAILY [facility] Last Admin: 04/13/18 10:10 Dose: 600 mg Glimepiride (Amaryl) 2 mg PO DAILY [facility] Last Admin: 09/26/17 10:10 Dose: 2 mg Insulin Aspart (Novolog) 0 unit SC [facility] PRN Reason: Protocol Last Admin: 09/26/17 11:35 Dose: Not Given Levothyroxine Sodium (Synthroid) 50 mcg PO DAILY@0630 [facility] Last Admin: 09/26/17 05:59 Dose: 50 mcg Pantoprazole Sodium (Protonix Ec Tab) 40 mg PO DAILY [facility] Last Admin: 09/26/17 10:11 Dose: 40 mg Rosuvastatin Calcium (Crestor) 10 mg PO HS [facility] Last Admin: 09/25/17 21:35 Dose: 10 mg Sitagliptin Phosphate (Januvia) 100 mg PO DAILY [facility] Last Admin: 09/26/17 10:11 Dose: 100 mg - Labs Labs: 09/24/17 18:29 09/25/17 14:06 - Constitutional Appears: Non-toxic, No Acute Distress - ENT Exam ENT Exam: Mucous Membranes Moist - Respiratory Exam Respiratory Exam: Clear to Ausculation Bilateral. absent: Accessory Muscle Use , Rales, Rhonchi, Wheezes, Respiratory Distress - Cardiovascular Exam Cardiovascular Exam: REGULAR RHYTHM, +S1, +S2. absent: Gallop, Rubs, Murmur - GI/Abdominal Exam GI & Abdominal Exam: Soft, Normal Bowel Sounds. absent: Distended, Firm, Guarding, Rigid, Tenderness, Organomegaly - Extremities Exam Extremities Exam: absent: Pedal Edema, Tenderness - Neurological Exam Neurological Exam: Alert, Awake, Oriented x3 - Psychiatric Exam Psychiatric exam: Normal Affect, Normal Mood - Skin Skin Exam: Dry, Intact, Normal Color, Warm Assessment and Plan - Assessment and Plan (Free Text) Assessment: CHF exacerbation - ProBNP on admission was normal - Cardiology is consulted. Per cardiology note, echo showed normal LA filling pressure suggesting that this is not diastolic CHF. - Pt was placed on Lasixs. Per cardio recs, will continue Lasixs po 40 mg - CXR on admission showed patchy left basilar airspace opacity with suggestion of trace left pleural effusion - Pt also has WBC count on admission - will consider repeating CXR HTN - Continue coreg, Lasixs HLD - continue Rosuvastatin DM - Continue home medications: Glimepiride, Januvia - ISS - Accuchecks ACHS Hypothyroid - Continue Levothyroxine 50 mch Diabetes neuropathy - Continue gabapentin Prophylaxis - Protonix - Lovenox All managements and orders per Dr. Hollis
--- NOTE | 2017-09-26 16:15 | RAD ---
HISTORY: Pleural effusion COMPARISON: 09/24/2017 FINDINGS: LUNGS: The lungs are well inflated and clear. PLEURA: No significant pleural effusion identified, no pneumothorax apparent. CARDIOVASCULAR: There is mild cardiomegaly. OSSEOUS STRUCTURES: No significant abnormalities. VISUALIZED UPPER ABDOMEN: Normal. OTHER FINDINGS: None. IMPRESSION: No active pulmonary disease.
--- NOTE | 2017-09-26 16:31 | CP.PCM.PN ---
Subjective - Date & Time of Evaluation Date of Evaluation: 09/26/17 Time of Evaluation: 11:40 - Subjective Subjective: clinically Objective - Vital Signs/Intake and Output Vital Signs (last 24 hours): Temp Pulse Resp BP Pulse Ox 98.9 F 62 20 99/63 L 97 09/26/17 15:56 09/26/17 16:00 09/26/17 15:56 09/26/17 15:56 09/26/17 15:56 Intake and Output: 09/26/17 09/26/17 06:59 18:59 Intake Total 420 600 Balance 420 600 - Medications Medications: Current Medications Acetaminophen (Tylenol 325mg Tab) 650 mg PO Q6 PRN PRN Reason: Pain, Mild (1-3) Last Admin: 09/25/17 21:35 Dose: 650 mg Carvedilol (Coreg) 3.125 mg PO DAILY [facility] Last Admin: 09/26/17 10:11 Dose: 3.125 mg Diclofenac Sodium (Voltaren) 75 mg PO DAILY [facility] Last Admin: 09/26/17 11:55 Dose: 75 mg Docusate Sodium (Colace) 100 mg PO BID [facility] Last Admin: 09/26/17 11:58 Dose: 100 mg Ergocalciferol (Drisdol 50,000 Intl Units Cap) 1 cap PO QWK [facility] Folic Acid (Folic Acid) 1 mg PO DAILY [facility] Last Admin: 09/26/17 10:10 Dose: 1 mg Furosemide (Lasix) 40 mg IVP DAILY [facility] Gabapentin (Neurontin) 600 mg PO DAILY [facility] Last Admin: 09/26/17 10:10 Dose: 600 mg Glimepiride (Amaryl) 2 mg PO DAILY [facility] Last Admin: 09/26/17 10:10 Dose: 2 mg Heparin Sodium (Porcine) (Heparin) 5,000 units SC Q12 [facility] Insulin Aspart (Novolog) 0 unit SC ACHS [facility] PRN Reason: Protocol Last Admin: 09/26/17 11:35 Dose: Not Given Levothyroxine Sodium (Synthroid) 50 mcg PO DAILY@0630 [facility] Last Admin: 09/26/17 05:59 Dose: 50 mcg Pantoprazole Sodium (Protonix Ec Tab) 40 mg PO DAILY [facility] Last Admin: 09/26/17 10:11 Dose: 40 mg Rosuvastatin Calcium (Crestor) 10 mg PO HS [facility] Last Admin: 09/25/17 21:35 Dose: 10 mg Sitagliptin Phosphate (Januvia) 100 mg PO DAILY [facility] Last Admin: 09/26/17 10:11 Dose: 100 mg - Labs Labs: 09/24/17 18:29 09/25/17 14:06 - Constitutional Appears: Well - Head Exam Head Exam: ATRAUMATIC, NORMAL INSPECTION, NORMOCEPHALIC - Eye Exam Eye Exam: EOMI, Normal appearance, PERRL Pupil Exam: NORMAL ACCOMODATION, PERRL - ENT Exam ENT Exam: Mucous Membranes Moist, Normal Exam - Neck Exam Neck Exam: Full ROM, Normal Inspection. absent: Lymphadenopathy - Respiratory Exam Respiratory Exam: Decreased Breath Sounds - Cardiovascular Exam Cardiovascular Exam: REGULAR RHYTHM, +S1, +S2 - GI/Abdominal Exam GI & Abdominal Exam: Soft, Diminished Bowel Sounds - Rectal Exam Rectal Exam: Deferred
--- NOTE | 2017-09-26 17:14 | CARD ---
APPROVED REPORT EXAM: Two-dimensional and M-mode echocardiogram with Doppler and color Doppler. Other Information Quality : GoodRhythm : INDICATION Congestive Heart Failure Palpitations RISK FACTORS Hypertension Diabetes M-Mode DIMENSIONS RVDd2.05 (2.1-3.2cm)Left Atrium (MM)3.99 (2.5-4.0cm) IVSd1.42 (0.7-1.1cm)Aortic Root2.95 (2.2-3.7cm) LVDd4.30 (4.0-5.6cm)Aortic Cusp Exc.1.98 (1.5-2.0cm) PWd1.28 (0.7-1.1cm)FS (%) 45 % LVDs2.36 (2.0-3.8cm)LVEF (%)77 (>50%) Mitral Valve MV E Ufwyhyqz84.9cm/sMV A Pnzcgwvj68.3cm/sE/A ratio0.7 TDI E/Lateral E'0.0E/Medial E'0.0 Tricuspid Valve TR Peak Hxsrjmcj086ey/sTR Peak Gr.[id number] LEFT VENTRICLE There is mild to moderate concentric left ventricular hypertrophy. The left ventricular systolic function is normal. The left ventricular ejection fraction is within the normal range. There is normal LV segmental wall motion. Transmitral Doppler flow pattern is Grade I-abnormal relaxation pattern. Normal left atrial pressure. RIGHT VENTRICLE The right ventricle is normal size. The right ventricular systolic function is normal. ATRIA The left atrium is mildly dilated. AORTIC VALVE The aortic valve is normal in structure. No aortic regurgitation is present. MITRAL VALVE The mitral valve is normal in structure. There is no mitral valve regurgitation noted. TRICUSPID VALVE The tricuspid valve is normal in structure. There is trace tricuspid regurgitation. PULMONIC VALVE The pulmonary valve is normal in structure. There is mild pulmonic valvular regurgitation. GREAT VESSELS The aortic root is normal in size. The IVC is normal in size and collapses >50% with inspiration. PERICARDIAL EFFUSION There is no pericardial effusion. <Conclusion> There is mild to moderate concentric left ventricular hypertrophy. The left ventricular systolic function is normal. There is normal LV segmental wall motion. Transmitral Doppler flow pattern is Grade I-abnormal relaxation pattern. Normal left atrial pressure. The right ventricular systolic function is normal. No significant valvular abnormality. No pericardial effusion.
[2017-09-26 17:22] LABS: BASO % 0.3 % (0.0-2.0); EOS # 0.4 K/uL (0.0-0.7); EOS % 4.5 % (0.0-4.0); HEMOGLOBIN 11.9 g/dL (11.0-16.0); LYMPH # 2.1 K/uL (1.0-4.3); LYMPH % 25.9 % (20.0-40.0); MEAN CELL VOLUME 86.8 fL (81.0-99.0); MEAN CORPUSCULAR HEMOGLOBIN 29.8 pg (27.0-31.0); MEAN CORPUSCULAR HGB CONC 34.3 g/dL (33.0-37.0); MEAN PLATELET VOLUME 7.4 fL (7.2-11.7); MONO # 0.8 K/uL (0.0-0.8); MONO % 9.8 % (0.0-10.0); NEUT # 4.9 K/uL (1.8-7.0); NEUT % 59.5 % (50.0-75.0); RBC 3.98 Mil/uL (3.80-5.20); RED CELL DISTRIBUTION WIDTH 14.2 % (11.5-14.5); WHITE BLOOD COUNT 8.2 K/uL (4.8-10.8)
[2017-09-26 17:32] LABS: PROTHROMBIN TIME 11.1 SECONDS (9.7-12.2)
[2017-09-26 17:48] LABS: ALB/GLOB RATIO 1.2 (1.0-2.1); ALBUMIN 4.2 g/dL (3.5-5.0); CALCIUM 9.2 mg/dl (8.6-10.4)
[2017-09-27] MEDS: Levothyroxine 50 MCG TAB PO SCH (06:10)
[2017-09-27] MEDS: (Novolog) Insulin Aspart, Recombinant 100 u/ml 10 ml vial SC SCH ×3 (08:00→22:03)
[2017-09-27] MEDS: Pantoprazole 40 mg EC Tab PO SCH (10:25)
[2017-09-27] MEDS: Diclofenac Sodium Delayed Release 75 mg EC Tab PO SCH (10:27)
[2017-09-28] MEDS: Levothyroxine 50 MCG TAB PO SCH (06:00)
[2017-09-28] MEDS: (Novolog) Insulin Aspart, Recombinant 100 u/ml 10 ml vial SC SCH ×4 (08:26→21:32)
[2017-09-28] MEDS: Pantoprazole 40 mg EC Tab PO SCH (09:54)
[2017-09-28] MEDS: Diclofenac Sodium Delayed Release 75 mg EC Tab PO SCH (09:58)
--- NOTE | 2017-09-28 16:37 | CP.PCM.PN ---
Subjective - Date & Time of Evaluation Date of Evaluation: 09/28/17 Time of Evaluation: 10:00 - Subjective Subjective: clinically same Objective - Vital Signs/Intake and Output Vital Signs (last 24 hours): Temp Pulse Resp BP Pulse Ox 98.3 F 65 20 159/77 H 97 09/28/17 08:07 09/28/17 08:07 09/28/17 08:07 09/28/17 09:55 09/28/17 08:07 - Medications Medications: Current Medications Acetaminophen (Tylenol 325mg Tab) 650 mg PO Q6 PRN PRN Reason: Pain, Mild (1-3) Last Admin: 09/25/17 21:35 Dose: 650 mg Carvedilol (Coreg) 3.125 mg PO DAILY [facility] Last Admin: 09/28/17 09:54 Dose: 3.125 mg Diclofenac Sodium (Voltaren) 75 mg PO DAILY [facility] Last Admin: 09/28/17 09:58 Dose: 75 mg Docusate Sodium (Colace) 100 mg PO BID [facility] Last Admin: 09/28/17 09:54 Dose: 100 mg Ergocalciferol (Drisdol 50,000 Intl Units Cap) 1 cap PO QWK [facility] Folic Acid (Folic Acid) 1 mg PO DAILY [facility] Last Admin: 09/28/17 09:55 Dose: 1 mg Furosemide (Lasix) 40 mg IVP DAILY [facility] Last Admin: 09/28/17 09:55 Dose: 40 mg Gabapentin (Neurontin) 600 mg PO DAILY [facility] Last Admin: 09/28/17 09:54 Dose: 600 mg Glimepiride (Amaryl) 2 mg PO DAILY [facility] Last Admin: 09/28/17 09:55 Dose: 2 mg Heparin Sodium (Porcine) (Heparin) 5,000 units SC Q12 [facility] Last Admin: 09/28/17 09:55 Dose: 5,000 units Insulin Aspart (Novolog) 0 unit SC ACHS [facility] PRN Reason: Protocol Last Admin: 09/28/17 13:59 Dose: Not Given Levothyroxine Sodium (Synthroid) 50 mcg PO DAILY@0630 [facility] Last Admin: 09/28/17 06:00 Dose: 50 mcg Pantoprazole Sodium (Protonix Ec Tab) 40 mg PO DAILY [facility] Last Admin: 09/28/17 09:54 Dose: 40 mg Rosuvastatin Calcium (Crestor) 10 mg PO HS [facility] Last Admin: 09/27/17 22:17 Dose: 10 mg Sitagliptin Phosphate (Januvia) 100 mg PO DAILY [facility] Last Admin: 09/28/17 09:54 Dose: 100 mg - Labs Labs: 09/26/17 17:12 09/26/17 17:12 PT 11.1 SECONDS (9.7-12.2) 09/26/17 17:12 INR 1.0 09/26/17 17:12 APTT 28 SECONDS (21-34) 09/26/17 17:12 - Constitutional Appears: Well - Head Exam Head Exam: ATRAUMATIC, NORMAL INSPECTION, NORMOCEPHALIC - Eye Exam Eye Exam: EOMI, Normal appearance, PERRL Pupil Exam: NORMAL ACCOMODATION, PERRL - ENT Exam ENT Exam: Mucous Membranes Moist, Normal Exam - Neck Exam Neck Exam: Full ROM, Normal Inspection. absent: Lymphadenopathy - Respiratory Exam Respiratory Exam: Decreased Breath Sounds - Cardiovascular Exam Cardiovascular Exam: REGULAR RHYTHM, +S1, +S2 - GI/Abdominal Exam GI & Abdominal Exam: Soft, Diminished Bowel Sounds - Rectal Exam Rectal Exam: Deferred
--- NOTE | 2017-09-28 21:07 | CARD ---
APPROVED REPORT EKG Measurement Heart [id number] <Conclusion> Normal sinus rhythm Normal ECG
[2017-09-29 04:36] VITALS: O2SAT 97
[2017-09-29] MEDS: Levothyroxine 50 MCG TAB PO SCH (06:20)
[2017-09-29 07:57] VITALS: BP 113/70; PULSE 58; TEMP 97.8
[2017-09-29] MEDS: Diclofenac Sodium Delayed Release 75 mg EC Tab PO SCH (09:32)
[2017-09-29] MEDS: Pantoprazole 40 mg EC Tab PO SCH (09:32)
[2017-09-29] MEDS: (Novolog) Insulin Aspart, Recombinant 100 u/ml 10 ml vial SC SCH (09:33)
[2017-09-29 10:13] LABS: BASO % 0.4 % (0.0-2.0); EOS # 0.4 K/uL (0.0-0.7); EOS % 3.1 % (0.0-4.0); LYMPH # 1.2 K/uL (1.0-4.3); LYMPH % 10.3 % (20.0-40.0); MEAN CELL VOLUME 87.1 fL (81.0-99.0); MEAN CORPUSCULAR HEMOGLOBIN 29.5 pg (27.0-31.0); MEAN CORPUSCULAR HGB CONC 33.9 g/dL (33.0-37.0); MEAN PLATELET VOLUME 7.8 fL (7.2-11.7); MONO # 0.9 K/uL (0.0-0.8); MONO % 8.1 % (0.0-10.0); NEUT % 78.1 % (50.0-75.0); NRBC % 0.1 % (0.0-2.0); RBC 4.08 Mil/uL (3.80-5.20); RED CELL DISTRIBUTION WIDTH 14.2 % (11.5-14.5); WHITE BLOOD COUNT 11.5 K/uL (4.8-10.8)
[2017-09-29 10:34] LABS: ALB/GLOB RATIO 1.1 (1.0-2.1); ALBUMIN 4.1 g/dL (3.5-5.0); CALCIUM 9.9 mg/dl (8.6-10.4)
--- NOTE | 2017-09-29 15:07 | CP.PCM.PN ---
Subjective - Date & Time of Evaluation Date of Evaluation: 09/29/17 Time of Evaluation: 14:59 - Subjective Subjective: PGY2 progress note for Dr. Hollis Pt seen and examined at bedside. No acute events overnight. Pt is seen walking around without difficulty. She states that swelling in her legs have improved considerably. denies having any CP, SOB, abd pain, N/V/D/C, F/C. 12 point ros negative except for the above mentioned. Objective - Vital Signs/Intake and Output Vital Signs (last 24 hours): Temp Pulse Resp BP Pulse Ox 97.8 F 58 L 20 113/70 97 09/29/17 07:25 09/29/17 07:25 09/29/17 07:25 09/29/17 07:25 09/29/17 07:25 Intake and Output: 09/29/17 09/29/17 06:59 18:59 Intake Total 320 Balance 320 - Medications Medications: Current Medications Acetaminophen (Tylenol 325mg Tab) 650 mg PO Q6 PRN PRN Reason: Pain, Mild (1-3) Last Admin: 09/25/17 21:35 Dose: 650 mg Carvedilol (Coreg) 3.125 mg PO DAILY [facility] Last Admin: 09/29/17 09:32 Dose: 3.125 mg Diclofenac Sodium (Voltaren) 75 mg PO DAILY [facility] Last Admin: 09/29/17 09:32 Dose: 75 mg Docusate Sodium (Colace) 100 mg PO BID [facility] Last Admin: 09/29/17 09:32 Dose: 100 mg Ergocalciferol (Drisdol 50,000 Intl Units Cap) 1 cap PO QWK [facility] Folic Acid (Folic Acid) 1 mg PO DAILY [facility] Last Admin: 09/29/17 09:32 Dose: 1 mg Gabapentin (Neurontin) 600 mg PO DAILY [facility] Last Admin: 09/29/17 12:38 Dose: 600 mg Glimepiride (Amaryl) 2 mg PO DAILY [facility] Last Admin: 09/29/17 09:32 Dose: 2 mg Heparin Sodium (Porcine) (Heparin) 5,000 units SC Q12 [facility] Last Admin: 09/29/17 09:32 Dose: 5,000 units Insulin Aspart (Novolog) 0 unit SC ACHS [facility] PRN Reason: Protocol Last Admin: 09/29/17 09:33 Dose: Not Given Levothyroxine Sodium (Synthroid) 50 mcg PO DAILY@0630 [facility] Last Admin: 09/29/17 06:20 Dose: 50 mcg Pantoprazole Sodium (Protonix Ec Tab) 40 mg PO DAILY [facility] Last Admin: 09/29/17 09:32 Dose: 40 mg Rosuvastatin Calcium (Crestor) 10 mg PO HS [facility] Last Admin: 09/28/17 21:28 Dose: 10 mg Sitagliptin Phosphate (Januvia) 100 mg PO DAILY [facility] Last Admin: 09/29/17 09:32 Dose: 100 mg Torsemide (Demadex) 40 mg PO DAILY [facility] - Labs Labs: 09/29/17 10:01 09/29/17 10:01 PT 11.1 SECONDS (9.7-12.2) 09/26/17 17:12 INR 1.0 09/26/17 17:12 APTT 28 SECONDS (21-34) 09/26/17 17:12 - Constitutional Appears: Non-toxic, No Acute Distress - Head Exam Head Exam: ATRAUMATIC - ENT Exam ENT Exam: Mucous Membranes Moist - Respiratory Exam Respiratory Exam: Clear to Ausculation Bilateral, NORMAL BREATHING PATTERN. absent: Accessory Muscle Use, Rales, Rhonchi, Wheezes, Respiratory Distress - Cardiovascular Exam Cardiovascular Exam: REGULAR RHYTHM, +S1, +S2 - GI/Abdominal Exam GI & Abdominal Exam: Soft, Normal Bowel Sounds. absent: Distended, Firm, Guarding, Rigid, Tenderness, Organomegaly - Extremities Exam Extremities Exam: absent: Pedal Edema, Tenderness - Neurological Exam Neurological Exam: Alert, Awake, Oriented x3 - Psychiatric Exam Psychiatric exam: Normal Affect, Normal Mood - Skin Skin Exam: Dry, Intact, Normal Color, Warm Assessment and Plan - Assessment and Plan (Free Text) Assessment: CHF exacerbation - ProBNP on admission was normal - Cardiology is consulted. Per cardiology note, echo showed normal LA filling pressure suggesting that this is not diastolic CHF. - CXR on admission showed patchy left basilar airspace opacity with suggestion of trace left pleural effusion - Pt also has WBC count on admission - Repeat CXR on 09/26 showed no active disease - LE swelling and SOB have resolved - Pt currently on lasixs CKD stage IV Pt also has BENNETT with slight increase in Cr likely due to aggressive diuresis. Dr. Hollis made aware of this and recommends d/cing pt with O/P F/U with him in his clinic in 2 days. HTN - Continue coreg, Lasixs HLD - continue Rosuvastatin DM - Continue home medications: Glimepiride, Januvia - ISS - Accuchecks ACHS Hypothyroid - Continue Levothyroxine 50 mch Diabetes neuropathy - Continue gabapentin Prophylaxis - Protonix - Lovenox All managements and orders per Dr. Hollis Patient is stable for discharge home per Dr. Hollis Patient is to follow up with PMD, Dr. Hollis in his office in 2 days to reevaluate her kidney function Patient is told to continue home medications as prescribed. She is told to discontinue Torsemide. Patient is discharged with the following new medications: Lasixs 80 mg po BID # 60 tabs and Potassium Chloride 20 mg po qd #30. Patient is told to return to ED if symptoms worsen.
[2017-10-01] MEDS ORDERED: Ergocalciferol 50,000 Intl Units Cap PO SCH (10:00)
== END 2017-09-29 16:38 | disposition home or self-care (01) | DRG 292 ==
LOC: C.ER 18:04 → C.9E 18:26 → C.6T 19:00 → OBSVTOIN 09-28 20:39
PROVIDERS: ADMIT Internal Medicine Nephrology; ATTEND Internal Medicine Nephrology
DX: I13.0 Hypertensive heart and chronic kidney disease with heart failure and stage 1 through stage 4 chronic kidney disease, or unspecified chronic kidney disease (principal); N18.4 Chronic kidney disease, stage 4 (severe); N17.9 Acute kidney failure, unspecified; E03.9 Hypothyroidism, unspecified; E11.22 Type 2 diabetes mellitus with diabetic chronic kidney disease; E11.40 Type 2 diabetes mellitus with diabetic neuropathy, unspecified; E11.65 Type 2 diabetes mellitus with hyperglycemia; E05.90 Thyrotoxicosis, unspecified without thyrotoxic crisis or storm; E78.00 Pure hypercholesterolemia, unspecified; H91.90 Unspecified hearing loss, unspecified ear; I50.9 Heart failure, unspecified; M47.9 Spondylosis, unspecified; Z90.49 Acquired absence of other specified parts of digestive tract; Z79.4 Long term (current) use of insulin

== ENCOUNTER 2017-11-02 11:54 | Inpatient (IN) | payer MEDICARE ==
[2017-11-02 11:54] VITALS: BMI 30.6
--- NOTE | 2017-11-02 12:46 | C.PDOC ---
History Of Present Illness Patient c/o periumbilical abdominal pain for the last 3-4 days, associated with nausea and dizziness. Patient sts she was recently admitted to for CHF exacerbation. Patient sts she has long h/o dizziness. Patient denies chest pain/ SOB/fever/vomiting/diarrhea. Time Seen by Provider: 11/02/17 12:08 Chief Complaint (Nursing): Abdominal Pain History Per: Patient History/Exam Limitations: no limitations Onset/Duration Of Symptoms: Days Current Symptoms Are (Timing): Still Present Past Medical History Reviewed: Historical Data, Nursing Documentation, Vital Signs Vital Signs: Last Vital Signs Temp 98.2 F 11/02/17 11:57 Pulse 67 11/02/17 15:46 Resp 20 11/02/17 15:46 BP 124/52 L 11/02/17 15:46 Pulse Ox 97 11/02/17 15:46 - Medical History PMH: Arthritis, Diabetes, Gastritis, HTN, Hypercholesterolemia, Hyperthyroidism , Hypothyroidism, Peripheral Edema Denies: HIV, Chronic Kidney Disease Surgical History: Appendectomy, Cholecystectomy - [facility] Procedures EXCISION OF TOE NAIL, EXTERNAL APPROACH (09/10/16) EXERCISE TRMT MUSCULOSK UP BACK/UE W ASSIST EQUIP (09/10/16) FUSION 2-6 C JT W AUTOL SUB, ANT APPR A COL, OPEN (09/06/16) FUSION 2-6 C JT W INTBD FUS DEV, ANT APPR A COL, OPEN (09/06/16) GAIT TRAINING/AMBULAT TREATMENT USING ASSIST EQUIPMENT (09/10/16) GROOMING/PERSONAL HYGIENE TREATMENT USING ASSIST EQUIPMENT (09/10/16) HOME MANAGEMENT TREATMENT (08/26/16) ROM & JT MOBILITY TREATMENT OF MUSCULOSK LOW BACK/LE (08/26/16) THERAPEUTIC EXERCISE TREATMENT OF MUSCULOSK LOW BACK/LE (08/26/16) Family History: States: Unknown Family Hx - Social History Hx Tobacco Use: No Hx Alcohol Use: No Hx Substance Use: No - Immunization History Hx Tetanus Toxoid Vaccination: No Hx Influenza Vaccination: No Hx Pneumococcal Vaccination: Yes Review Of Systems Except As Marked, All Systems Reviewed And Found Negative. Physical Exam - Physical Exam Appears: Well, Non-toxic, No Acute Distress Skin: Warm, Dry, Rash (left abdomen, left flank area with healing vesicular rash , some erythema and crusting noted) Head: Atraumatic, Normacephalic Eye(s): bilateral: Normal Inspection Neck: Normal ROM, Supple Chest: Symmetrical, No Deformity, No Tenderness Cardiovascular: Rhythm Regular Respiratory: Normal Breath Sounds Gastrointestinal/Abdominal: Tenderness Neurological/Psych: Oriented x3, Normal Speech, Normal Cognition ED Course And Treatment - Laboratory Results Result Diagrams: 11/02/17 12:50 11/02/17 12:50 O2 Sat by Pulse Oximetry: 97 - CT Scan/US CT of abdomen/pelvis Other Rad Studies (CT/US): Read By Radiologist, Radiology Report Reviewed CT/US Interpretation: Accession No. : [id number]. Patient Name / ID : ARLETTE DENNIS / [id number]. Exam Date : 11/02/2017 14:49:53 ( Approved ). Study Comment : Sex / Age : F / [id number]. Creator : Danae Cobos MD. Dictator : Danae Cobos MD. Pig Machine Operator Helper : Respiratory Supervisor : Danae Cobos MD. Approver2 : Report Date : 11/02/2017 16:32:33. My Comment : . PROCEDURE: CT Abdomen and Pelvis with Oral contrast. HISTORY: abd pain. COMPARISON: None. TECHNIQUE: Contiguous axial images of the abdomen and pelvis. Oral contrast was administered. No IV contrast given. Coronal and Sagittal reformats generated. Radiation dose: Total exam DLP = 965.57 mGy-cm. This CT exam was performed using one or more of the following dose reduction techniques: Automated exposure control, adjustment of the mA and/or kV according to patient size, and/or use of iterative reconstruction technique. FINDINGS: LOWER THORAX: No evidence of acute pathology in the lung bases. Linear opacity seen at the left lung base may represent atelectasis or scar tissue. No evidence of pleural effusion. The heart is mildly to moderately enlarged. Unremarkable. LIVER: No evidence of acute pathology or suspicious mass in the liver in this noncontrast study. GALLBLADDER AND BILE DUCTS: The patient is status post cholecystectomy. Mildly dilated common bile duct noted. PANCREAS: Unremarkable. No mass. No ductal dilatation. SPLEEN: Unremarkable. No splenomegaly. ADRENALS: Unremarkable. KIDNEYS AND URETERS: Mildly dilated collecting system of both kidneys without evidence of obstructing stone. BLADDER: The urinary bladder is mildly distended. REPRODUCTIVE: The uterus is slightly prominent in size for the patient's age. APPENDIX: There is no evidence of appendicitis. BOWEL: Mildly dilated small bowel loops noted in the mid and lower abdomen without evidence of high-grade bowel obstruction. PERITONEUM: Unremarkable. No fluid collection. No free air. LYMPH NODES: Unremarkable. No enlarged lymph nodes. VASCULATURE: Unremarkable. No aortic aneurysm. BONES: No fracture or destructive lesion. OTHER FINDINGS: None. IMPRESSION: Mildly dilated small bowel loops demonstrate mild wall thickening. Please correlate clinically for enteritis. No evidence of high-grade bowel obstruction. Status post cholecystectomy. Mildly dilated CBD. Mildly dilated collecting system of both kidneys likely due to distended bladder. No evidence of nephrolithiasis or significant hydronephrosis. Progress Note: Plan: labs, abdominal CT. Patient found to be hyponatremic and hypokalemic. Patient was seen in ED by PMD who accepted her to his ervice for observation. Disposition - Disposition Disposition: HOSPITALIZED Disposition Time: 16:43 Condition: FAIR Forms: [facility] (Serbian) - Clinical Impression Clinical Impression: Abdominal pain, Hyponatremia, Hypokalemia Decision To Admit - Pt Status Changed To: Hospital Disposition Of: Observation - . Bed Request Type: Regular Admitting Physician: Sheila Hollis Patient Diagnosis: Abdominal pain, Hyponatremia, Hypokalemia
[2017-11-02] MEDS ORDERED: Iohexol 240 (50 ml) PO STA (12:47)
[2017-11-02] MEDS ORDERED: Iohexol 240 (50 ml) ONE (12:57)
[2017-11-02 13:07] LABS: BASO % 0.4 % (0.0-2.0); EOS # 0.1 K/uL (0.0-0.7); EOS % 1.2 % (0.0-4.0); HEMOGLOBIN 11.1 g/dL (11.0-16.0); LYMPH # 1.8 K/uL (1.0-4.3); LYMPH % 19.4 % (20.0-40.0); MEAN CELL VOLUME 83.3 fL (81.0-99.0); MEAN CORPUSCULAR HEMOGLOBIN 30.2 pg (27.0-31.0); MEAN CORPUSCULAR HGB CONC 36.3 g/dL (33.0-37.0); MEAN PLATELET VOLUME 7.4 fL (7.2-11.7); MONO # 0.6 K/uL (0.0-0.8); MONO % 6.3 % (0.0-10.0); NEUT # 6.6 K/uL (1.8-7.0); NEUT % 72.7 % (50.0-75.0); NRBC % 0.1 % (0.0-2.0); RBC 3.67 Mil/uL (3.80-5.20); RED CELL DISTRIBUTION WIDTH 14.1 % (11.5-14.5); WHITE BLOOD COUNT 9.1 K/uL (4.8-10.8)
[2017-11-02 13:11] LABS: ALB/GLOB RATIO 1.3 (1.0-2.1); ALBUMIN 4.3 g/dL (3.5-5.0); CALCIUM 9.7 mg/dl (8.6-10.4)
[2017-11-02 13:41] LABS: SQUAMOUS EPITHIAL < 1 /hpf (0-5); URINE BILIRUBIN NEGATIVE (NEGATIVE); URINE BLOOD NEGATIVE (NEGATIVE); URINE CLARITY Clear (Clear); URINE COLOR Yellow (YELLOW); URINE GLUCOSE (UA) NORMAL (Normal); URINE LEUKOCYTE ESTERASE NEG Leu/uL (Negative); URINE PROTEIN NEGATIVE (NEGATIVE); URINE UROBILINOGEN NORMAL mg/dL (0.2-1.0)
[2017-11-02] MEDS ORDERED: Sodium Chloride 0.9% 1,000 ML IV ONE (13:59)
[2017-11-02] MEDS ORDERED: Sodium Chloride 0.9% 1,000 ML ONE (14:08)
--- NOTE | 2017-11-02 16:33 | CT ---
PROCEDURE: CT Abdomen and Pelvis with Oral contrast. HISTORY: abd pain COMPARISON: None. TECHNIQUE: Contiguous axial images of the abdomen and pelvis. Oral contrast was administered. No IV contrast given. Coronal and Sagittal reformats generated. Radiation dose: Total exam DLP = 965.57 mGy-cm. This CT exam was performed using one or more of the following dose reduction techniques: Automated exposure control, adjustment of the mA and/or kV according to patient size, and/or use of iterative reconstruction technique. FINDINGS: LOWER THORAX: No evidence of acute pathology in the lung bases. Linear opacity seen at the left lung base may represent atelectasis or scar tissue. No evidence of pleural effusion. The heart is mildly to moderately enlarged. Unremarkable. LIVER: No evidence of acute pathology or suspicious mass in the liver in this noncontrast study. GALLBLADDER AND BILE DUCTS: The patient is status post cholecystectomy. Mildly dilated common bile duct noted. PANCREAS: Unremarkable. No mass. No ductal dilatation. SPLEEN: Unremarkable. No splenomegaly. ADRENALS: Unremarkable. KIDNEYS AND URETERS: Mildly dilated collecting system of both kidneys without evidence of obstructing stone. BLADDER: The urinary bladder is mildly distended. REPRODUCTIVE: The uterus is slightly prominent in size for the patient's age. APPENDIX: There is no evidence of appendicitis. BOWEL: Mildly dilated small bowel loops noted in the mid and lower abdomen without evidence of high-grade bowel obstruction. PERITONEUM: Unremarkable. No fluid collection. No free air. LYMPH NODES: Unremarkable. No enlarged lymph nodes. VASCULATURE: Unremarkable. No aortic aneurysm. BONES: No fracture or destructive lesion. OTHER FINDINGS: None. IMPRESSION: Mildly dilated small bowel loops demonstrate mild wall thickening. Please correlate clinically for enteritis. No evidence of high-grade bowel obstruction. Status post cholecystectomy. Mildly dilated CBD. Mildly dilated collecting system of both kidneys likely due to distended bladder. No evidence of nephrolithiasis or significant hydronephrosis.
[2017-11-02] MEDS ORDERED: Potassium Chloride 20 mEq/15 ml LIQ UD PO STA (16:37)
[2017-11-02] MEDS ORDERED: Potassium Chloride 20 mEq/15 ml LIQ UD ONE (16:46)
[2017-11-02] MEDS ORDERED: Enoxaparin 40 mg Syringe SC SCH (22:00)
[2017-11-02] MEDS: Ciprofloxacin 400mg/200ml D5W 400 MG/200 ML BAG IVPB SCH (22:26)
[2017-11-02] MEDS: (Novolog) Insulin Aspart, Recombinant 100 u/ml 10 ml vial SC SCH (22:27)
[2017-11-03] MEDS: Levothyroxine 50 MCG TAB PO SCH (06:17)
[2017-11-03] MEDS: (Novolog) Insulin Aspart, Recombinant 100 u/ml 10 ml vial SC SCH ×4 (08:55→23:44)
--- NOTE | 2017-11-03 09:42 | CP.PCM.PN ---
<Yusef Das - Last Filed: 11/03/17 21:48> Subjective - Date & Time of Evaluation Date of Evaluation: 11/03/17 Time of Evaluation: 09:42 - Subjective Subjective: Progress Note for Dr. Hollis Patient seen and examined at bedside. No acute events reported overnight. Patient states her abdominal pain improved slightly. Patient also reports of feeling nauseous but no vomiting. She further denies having fever, shortness of breath, chest pain, diarrhea, or urinary symptoms. Objective - Vital Signs/Intake and Output Vital Signs (last 24 hours): Temp Pulse Resp BP Pulse Ox 97.5 F L 65 20 136/66 96 11/03/17 07:51 11/03/17 07:51 11/03/17 07:51 11/03/17 07:51 11/03/17 07:51 Intake and Output: 11/03/17 11/03/17 06:59 18:59 Intake Total 240 Balance 240 - Medications Medications: Current Medications Acyclovir (Zovirax) 400 mg PO BID [facility] Reason: Protocol Stop: 11/12/17 22:01 Last Admin: 11/02/17 22:26 Dose: 400 mg Carvedilol (Coreg) 3.125 mg PO DAILY [facility] Diclofenac Sodium (Voltaren) 75 mg PO DAILY [facility] Enoxaparin Sodium (Lovenox) 40 mg SC Q12H [facility] Ergocalciferol (Drisdol 50,000 Intl Units Cap) 1 cap PO QWK [facility] Folic Acid (Folic Acid) 1 mg PO DAILY [facility] Furosemide (Lasix) 40 mg IVP DAILY [facility] Gabapentin (Neurontin) 600 mg PO DAILY [facility] Glimepiride (Amaryl) 2 mg PO DAILY [facility] Ciprofloxacin (Cipro 400mg/200ml Dsw) 400 mg in 200 mls @ 133 mls/hr IVPB Q12H [facility] PRN Reason: Protocol Last Admin: 11/02/17 22:26 Dose: 133 mls/hr Sodium Chloride (Sodium Chloride 0.9%) 1,000 mls @ 75 mls/hr IV .[id number] [facility] Insulin Aspart (Novolog) 0 unit SC ACHS [facility] PRN Reason: Protocol Last Admin: 11/03/17 08:55 Dose: 1 unit Levothyroxine Sodium (Synthroid) 50 mcg PO DAILY@0630 [facility] Last Admin: 11/03/17 06:17 Dose: 50 mcg Pantoprazole Sodium (Protonix Ec Tab) 40 mg PO DAILY [facility] Potassium Chloride (K-Dur 20 Meq Er Tab) 20 meq PO DAILY [facility] Rosuvastatin Calcium (Crestor) 10 mg PO HS [facility] Sitagliptin Phosphate (Januvia) 100 mg PO DAILY [facility] Tramadol HCl (Ultram) 50 mg PO Q6H PRN PRN Reason: Pain, moderate (4-7) Last Admin: 11/03/17 06:28 Dose: 50 mg - Labs Labs: 11/02/17 12:50 11/02/17 12:50 - Constitutional Appears: Non-toxic, No Acute Distress - Head Exam Head Exam: ATRAUMATIC, NORMOCEPHALIC - Eye Exam Eye Exam: EOMI, Normal appearance, PERRL Pupil Exam: PERRL - ENT Exam ENT Exam: Mucous Membranes Moist, Normal Exam - Neck Exam Neck Exam: Full ROM, Normal Inspection - Respiratory Exam Respiratory Exam: Clear to Ausculation Bilateral, NORMAL BREATHING PATTERN. absent: Rhonchi, Wheezes, Respiratory Distress - Cardiovascular Exam Cardiovascular Exam: REGULAR RHYTHM, +S1, +S2. absent: Murmur - GI/Abdominal Exam GI & Abdominal Exam: Soft, Tenderness, Normal Bowel Sounds Additional comments: left flank vesicular rash - Extremities Exam Extremities Exam: Full ROM, Normal Capillary Refill, Normal Inspection. absent : Joint Swelling, Pedal Edema - Neurological Exam Neurological Exam: Alert, Awake, Oriented x3 - Psychiatric Exam Psychiatric exam: Normal Affect, Normal Mood - Skin Skin Exam: Dry, Warm Assessment and Plan - Assessment and Plan (Free Text) Assessment: Gastroenteritis -GI consulted, Dr. Cornelius help appreciated -NPO -Ciprofloxacin 400mg Q12h -Ultram 50mg Q6 prn -IVF NS 75ml/hr -Urine culture likely contaminated, repeat pending Vesicular rash -Acyclovir 400mg BID Electrolyte imbalance -NS @75ml/hr -Potassium repleted -Follow up AM labs, replete as needed CHF -Lasix 40mg IV -Coreg 3.125mg -Aspirin 81mg -Echo from 09/25/17 EF>70% DM -Januvia 50mg -Glimepiride 2mg -ISS -Accucheck ACHS Hypothyroidism -Synthroid 50mcg po Vitamin D def -Ergocalciferol [id number] qwk Prophylactic measures -Heparin 5000u Q12 -Protonix 40mg -PT eval and treat Case discussed with attending physician All management per Dr. Hollis <Sheila Hollis S - Last Filed: 11/09/17 09:38> Objective - Vital Signs/Intake and Output Vital Signs (last 24 hours): Temp Pulse Resp BP Pulse Ox 97.7 F 71 20 135/73 97 11/07/17 15:00 11/07/17 15:00 11/07/17 15:00 11/07/17 15:00 11/07/17 15:00 - Labs Labs: 11/07/17 07:55 11/07/17 07:55 PT 12.3 SECONDS (9.7-12.2) H 11/05/17 10:41 INR 1.1 11/05/17 10:41 APTT 32 SECONDS (21-34) D 11/05/17 10:41 Attending/Attestation - Attestation I have personally seen and examined this patient.: Yes I have fully participated in the care of the patient.: Yes I have reviewed all pertinent clinical information, including history, physical exam and plan: Yes Notes (Text): case seen and d.w staff and resident, concurred with finding and management..
[2017-11-03] MEDS ORDERED: Diclofenac Sodium Delayed Release 75 mg EC Tab PO SCH ×2 (10:00)
[2017-11-03] MEDS: Sodium Chloride 0.9% 1,000 ML IV SCH (10:14)
[2017-11-03] MEDS: Pantoprazole 40 mg EC Tab PO SCH (11:09)
[2017-11-03] MEDS: Potassium Chloride 20 mEq ER Tab PO SCH (11:10)
[2017-11-03] MEDS: Ciprofloxacin 400mg/200ml D5W 400 MG/200 ML BAG IVPB SCH ×2 (11:16→22:20)
[2017-11-03 12:09] LABS: BASO % 0.6 % (0.0-2.0); EOS # 0.2 K/uL (0.0-0.7); EOS % 2.1 % (0.0-4.0); HEMOGLOBIN 11.9 g/dL (11.0-16.0); LYMPH # 1.5 K/uL (1.0-4.3); LYMPH % 20.8 % (20.0-40.0); MEAN CORPUSCULAR HEMOGLOBIN 30.4 pg (27.0-31.0); MEAN CORPUSCULAR HGB CONC 35.6 g/dL (33.0-37.0); MEAN PLATELET VOLUME 7.7 fL (7.2-11.7); MONO # 0.8 K/uL (0.0-0.8); MONO % 10.2 % (0.0-10.0); NEUT # 4.9 K/uL (1.8-7.0); NEUT % 66.3 % (50.0-75.0); RBC 3.92 Mil/uL (3.80-5.20); RED CELL DISTRIBUTION WIDTH 14.7 % (11.5-14.5); WHITE BLOOD COUNT 7.3 K/uL (4.8-10.8)
[2017-11-03 12:13] LABS: MEAN CELL VOLUME 85.3 fL (81.0-99.0)
[2017-11-03 12:17] LABS: ALB/GLOB RATIO 1.4 (1.0-2.1); ALBUMIN 5.1 g/dL (3.5-5.0)
[2017-11-03] MEDS ORDERED: Enoxaparin 30 mg Syringe SC SCH (14:00)
--- NOTE | 2017-11-03 14:25 | CP.PCM.HP ---
Present on Admission - Present on Admission Any Indicators Present on Admission: No Past Patient History - Infectious Disease Hx of Infectious Diseases: None - Past Medical History & Family History Past Medical History?: Yes - Past Social History Smoking Status: Never Smoked - CARDIAC Hx Hypercholesterolemia: Yes Hx Hypertension: Yes - PULMONARY Hx Respiratory Disorders: No - NEUROLOGICAL Hx Neurological Disorder: No - HEENT Hx HEENT Problems: Yes Hx Deafness: Yes (right ear) - RENAL Hx Chronic Kidney Disease: No - ENDOCRINE/METABOLIC Hx Hypothyroidism: Yes - HEMATOLOGICAL/ONCOLOGICAL Hx Human Immunodeficiency Virus (HIV): No - INTEGUMENTARY Hx Dermatological Problems: No - MUSCULOSKELETAL/RHEUMATOLOGICAL Hx Arthritis: Yes (neck/back) - GASTROINTESTINAL Hx Gastritis: Yes - GENITOURINARY/GYNECOLOGICAL Hx Genitourinary Disorders: No - PSYCHIATRIC Hx Substance Use: No - SURGICAL HISTORY Hx Appendectomy: Yes Hx Cholecystectomy: Yes - ANESTHESIA Hx Anesthesia: Yes Hx Anesthesia Reactions: Yes (too sleepy) Hx Malignant Hyperthermia: No Meds Home Medications: Home Medication List Medication Instructions Recorded Confirmed Type Acyclovir [Zovirax] 400 mg PO BID 5 Days #10 tab 11/07/17 Rx Ciprofloxacin [Cipro] 500 mg PO Q12H #4 tab 11/07/17 Rx Allergies/Adverse Reactions: Allergies Allergy/AdvReac Type Severity Reaction Status Date / Time No Known Allergies Allergy Verified 06/24/17 09:30 Physical Exam - Constitutional Appears: Well - Head Exam Head Exam: ATRAUMATIC, NORMAL INSPECTION, NORMOCEPHALIC - Eye Exam Eye Exam: EOMI, Normal appearance, PERRL Pupil Exam: NORMAL ACCOMODATION, PERRL - ENT Exam ENT Exam: Mucous Membranes Moist, Normal Exam - Neck Exam Neck exam: Positive for: Normal Inspection - Respiratory Exam Respiratory Exam: Decreased Breath Sounds - Cardiovascular Exam Cardiovascular Exam: REGULAR RHYTHM, +S1, +S2 - GI/Abdominal Exam GI & Abdominal Exam: Diminished Bowel Sounds, Soft - Rectal Exam Rectal Exam: Deferred Results - Vital Signs Recent Vital Signs: Last Vital Signs Temp 97.8 F 11/03/17 12:15 Pulse 69 11/03/17 12:15 Resp 20 11/03/17 12:15 BP 138/76 11/03/17 12:15 Pulse Ox 100 11/03/17 12:15 - Labs Result Diagrams: 11/07/17 07:55 11/07/17 07:55 Labs: Laboratory Results - last 24 hr 11/02/17 11/03/17 11/03/17 12:05 11:47 11:47 WBC 7.3 RBC 3.92 Hgb 11.9 Hct 33.4 L MCV 85.3 D MCH 30.4 MCHC 35.6 RDW 14.7 H Plt Count 311 MPV 7.7 Neut % (Auto) 66.3 Lymph % (Auto) 20.8 Grainger % (Auto) 10.2 H Eos % (Auto) 2.1 Baso % (Auto) 0.6 Neut # (Auto) 4.9 Lymph # (Auto) 1.5 Grainger # (Auto) 0.8 Eos # (Auto) 0.2 Baso # (Auto) 0.0 Sodium 129 L Potassium 3.4 L Chloride 83 L Carbon Dioxide 32 H Anion Gap 17 BUN 31 H Creatinine 1.5 H Est GFR ( Amer) 41 Est GFR (Non-Af Amer) 34 POC Glucose (mg/dL) 184 H Random Glucose 206 H Calcium 10.0 Total Bilirubin 1.2 AST 39 H ALT 18 Alkaline Phosphatase 104 Total Protein 8.6 H Albumin 5.1 H Globulin 3.5 Albumin/Globulin Ratio 1.4 Lipase 304 H Carcinoembryonic Ag 1.9 CA 125 Antigen 8.4 Assessment & Plan (1) Abdominal pain Status: Acute (2) Acute on chronic renal failure Status: Acute (3) Acute renal failure Status: Acute (4) Anxiety attack Status: Acute (5) Bilateral lower extremity edema Status: Acute (6) CHF exacerbation Status: Acute (7) CKD (chronic kidney disease) Status: Acute (8) Cervical spinal stenosis Status: Acute (9) Chest pain Status: Acute (10) Chest pain Status: Acute (11) DVT prophylaxis Status: Acute (12) Diabetes Status: Acute (13) Diabetes mellitus type II, uncontrolled Status: Acute (14) Epistaxis Status: Acute (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 Cornelius help appreciated -NPO -Ciprofloxacin 400mg Q12h -Ultram 50mg Q6 prn -IVF NS 75ml/hr pt used to have sevre edema onlgs which are controlled pt abd pain is better -Urine culture likely contaminated, repeat pending Vesicular rash -Acyclovir 400mg BID Electrolyte imbalance -NS @75ml/hr -Potassium repleted -Follow up AM labs, replete as needed CHF -Lasix 40mg IV -Coreg 3.125mg -Aspirin 81mg -Echo from 09/25/17 EF>70% DM -Januvia 50mg -Glimepiride 2mg -ISS -Accucheck ACHS Hypothyroidism -Synthroid 50mcg po Vitamin D def -Ergocalciferol [id number] qwk Prophylactic measures -Heparin 5000u Q12 -Protonix 40mg -PT eval and treat
[2017-11-04] MEDS: Sodium Chloride 0.9% 1,000 ML IV SCH ×2 (00:27→22:05)
[2017-11-04] MEDS: Levothyroxine 50 MCG TAB PO SCH (06:56)
[2017-11-04] MEDS ORDERED: Potassium Chloride 20 mEq ER Tab PO ONE (07:00)
[2017-11-04] MEDS: (Novolog) Insulin Aspart, Recombinant 100 u/ml 10 ml vial SC SCH ×4 (08:35→21:19)
[2017-11-04 08:56] LABS: BASO # 0.1 K/uL (0.0-0.2); BASO % 0.8 % (0.0-2.0); EOS # 0.3 K/uL (0.0-0.7); EOS % 4.3 % (0.0-4.0); HEMOGLOBIN 11.4 g/dL (11.0-16.0); LYMPH # 1.9 K/uL (1.0-4.3); LYMPH % 25.7 % (20.0-40.0); MEAN CELL VOLUME 85.2 fL (81.0-99.0); MEAN CORPUSCULAR HEMOGLOBIN 30.6 pg (27.0-31.0); MEAN CORPUSCULAR HGB CONC 35.9 g/dL (33.0-37.0); MEAN PLATELET VOLUME 7.9 fL (7.2-11.7); MONO # 0.7 K/uL (0.0-0.8); MONO % 9.3 % (0.0-10.0); NEUT # 4.3 K/uL (1.8-7.0); NEUT % 59.9 % (50.0-75.0); NRBC % 0.1 % (0.0-2.0); RBC 3.71 Mil/uL (3.80-5.20); RED CELL DISTRIBUTION WIDTH 14.5 % (11.5-14.5); WHITE BLOOD COUNT 7.2 K/uL (4.8-10.8)
[2017-11-04 09:07] LABS: ALB/GLOB RATIO 1.4 (1.0-2.1); ALBUMIN 4.7 g/dL (3.5-5.0); CALCIUM 9.8 mg/dl (8.6-10.4)
[2017-11-04] MEDS ORDERED: Enoxaparin 30 mg Syringe SC SCH (10:00)
--- NOTE | 2017-11-04 10:07 | CP.PCM.PN ---
Subjective - Date & Time of Evaluation Date of Evaluation: 11/04/17 Time of Evaluation: 10:06 - Subjective Subjective: Progress Note for Dr. Hollis Patient seen and examined at bedside. No acute events reported overnight. Patient reports improved abd pain this AM, and denies N/V overnight. Reports tolerating diet, and voiding without difficulty. Pt NPO for endoscopy this AM with Dr. Cornelius. Objective - Vital Signs/Intake and Output Vital Signs (last 24 hours): Temp Pulse Resp BP Pulse Ox 97.7 F 66 20 145/77 97 11/04/17 08:06 11/04/17 08:06 11/04/17 08:06 11/04/17 08:06 11/04/17 08:06 Intake and Output: 11/04/17 11/04/17 06:59 18:59 Intake Total 1100 Balance 1100 - Medications Medications: Current Medications Acyclovir (Zovirax) 400 mg PO BID [facility] PRN Reason: Protocol Stop: 11/12/17 22:01 Last Admin: 11/03/17 18:04 Dose: 400 mg Aspirin (Aspirin Chewable) 81 mg PO DAILY [facility] Carvedilol (Coreg) 3.125 mg PO DAILY [facility] Last Admin: 11/03/17 11:10 Dose: 3.125 mg Ergocalciferol (Drisdol 50,000 Intl Units Cap) 1 cap PO QWK [facility] Folic Acid (Folic Acid) 1 mg PO DAILY [facility] Last Admin: 11/03/17 11:09 Dose: 1 mg Furosemide (Lasix) 40 mg IVP DAILY [facility] Last Admin: 11/03/17 11:10 Dose: 40 mg Gabapentin (Neurontin) 600 mg PO DAILY [facility] Last Admin: 11/03/17 11:09 Dose: 600 mg Glimepiride (Amaryl) 2 mg PO DAILY [facility] Last Admin: 11/03/17 11:10 Dose: 2 mg Heparin Sodium (Porcine) (Heparin) 5,000 units SC Q12 [facility] Last Admin: 11/03/17 22:19 Dose: 5,000 units Ciprofloxacin (Cipro 400mg/200ml Dsw) 400 mg in 200 mls @ 133 mls/hr IVPB Q12H [facility] PRN Reason: Protocol Last Admin: 11/03/17 22:20 Dose: 133 mls/hr Sodium Chloride (Sodium Chloride 0.9%) 1,000 mls @ 75 mls/hr IV .[id number] [facility] Last Admin: 11/04/17 00:27 Dose: 75 mls/hr Insulin Aspart (Novolog) 0 unit SC ACHS [facility] PRN Reason: Protocol Last Admin: 11/04/17 08:35 Dose: Not Given Levothyroxine Sodium (Synthroid) 50 mcg PO DAILY@0630 [facility] Last Admin: 11/04/17 06:56 Dose: 50 mcg Pantoprazole Sodium (Protonix Ec Tab) 40 mg PO DAILY [facility] Last Admin: 11/03/17 11:09 Dose: 40 mg Potassium Chloride (K-Dur 20 Meq Er Tab) 20 meq PO DAILY [facility] Last Admin: 11/03/17 11:10 Dose: 20 meq Rosuvastatin Calcium (Crestor) 10 mg PO HS [facility] Last Admin: 11/03/17 22:18 Dose: 10 mg Sitagliptin Phosphate (Januvia) 50 mg PO DAILY [facility] Last Admin: 11/03/17 13:50 Dose: 50 mg Tramadol HCl (Ultram) 50 mg PO Q6H PRN PRN Reason: Pain, moderate (4-7) Last Admin: 11/04/17 03:34 Dose: 50 mg - Labs Labs: 11/04/17 08:43 11/04/17 08:43 - Additional Findings Additional findings: - Constitutional Appears: Non-toxic, No Acute Distress - Head Exam Head Exam: ATRAUMATIC, NORMOCEPHALIC - Eye Exam Eye Exam: EOMI, Normal appearance, PERRL Pupil Exam: PERRL - ENT Exam ENT Exam: Mucous Membranes Moist, Normal Exam - Neck Exam Neck Exam: Full ROM, Normal Inspection - Respiratory Exam Respiratory Exam: Clear to Ausculation Bilateral, NORMAL BREATHING PATTERN. absent: Rhonchi, Wheezes, Respiratory Distress - Cardiovascular Exam Cardiovascular Exam: REGULAR RHYTHM, +S1, +S2. absent: Murmur - GI/Abdominal Exam GI & Abdominal Exam: Soft, Tenderness, Normal Bowel Sounds Additional comments: left flank vesicular rash - Extremities Exam Extremities Exam: Full ROM, Normal Capillary Refill, Normal Inspection. absent : Joint Swelling, Pedal Edema - Neurological Exam Neurological Exam: Alert, Awake, Oriented x3 - Psychiatric Exam Psychiatric exam: Normal Affect, Normal Mood - Skin Skin Exam: Dry, Warm Assessment and Plan - Assessment and Plan (Free Text) Plan: Gastroenteritis Admit to med/surg Afebrile, No WBC GI consulted, Dr. Cornelius help appreciated -Endoscopy (11/04/17): Small hiatal hernia. Erythematous mucosa w/o bleeding in entire stomach. Biopsy taken. Patchy erythematous mucosa in entire duodenum. - CA 8.4, CEA 1.9 (WNL) Ciprofloxacin 400mg Q12h Ultram 50mg Q6 prn IVF NS 75ml/hr -Urine culture likely contaminated, repeat pending Vesicular rash -Acyclovir 400mg BID Electrolyte imbalance -NS @75ml/hr -Potassium repleted -Follow up AM labs, replete as needed CHF (diastolic - HFrEF) -Lasix 40mg IV -Coreg 3.125mg -Aspirin 81mg -Echo from 09/25/17 EF>70% DM -Januvia 50mg -Glimepiride 2mg -ISS -Accucheck ACHS Hypothyroidism -Synthroid 50mcg po Vitamin D def -Ergocalciferol 30507x qwk CKD Cr 1.4, GFR 37 - Cr improved since admission (1.6) NS at 75cc/hr Prophylactic measures -Heparin 5000u Q12 -Protonix 40mg -PT eval and treat Case discussed with attending physician All management per Dr. Hollis
[2017-11-04] MEDS ORDERED: Midazolam 2 MG/2 ML VIAL ONE (12:23)
[2017-11-04] MEDS ORDERED: Propofol 10 mg/ml Inj (20 ML) ONE (12:23)
[2017-11-04] MEDS: Pantoprazole 40 mg EC Tab PO SCH (13:49)
[2017-11-04] MEDS: Potassium Chloride 20 mEq ER Tab PO SCH (13:49)
[2017-11-04] MEDS: Ciprofloxacin 400mg/200ml D5W 400 MG/200 ML BAG IVPB SCH (13:50)
[2017-11-04 17:08] LABS: MEAN CELL VOLUME 85.4 fL (81.0-99.0); MEAN CORPUSCULAR HEMOGLOBIN 30.4 pg (27.0-31.0); MEAN CORPUSCULAR HGB CONC 35.6 g/dL (33.0-37.0); MEAN PLATELET VOLUME 7.6 fL (7.2-11.7); RBC 3.63 Mil/uL (3.80-5.20); RED CELL DISTRIBUTION WIDTH 14.4 % (11.5-14.5); WHITE BLOOD COUNT 8.3 K/uL (4.8-10.8)
--- NOTE | 2017-11-04 17:13 | CP.PCM.PN ---
Subjective - Date & Time of Evaluation Date of Evaluation: 11/04/17 Time of Evaluation: 09:40 - Subjective Subjective: clinically same Objective - Vital Signs/Intake and Output Vital Signs (last 24 hours): Temp Pulse Resp BP Pulse Ox 97.3 F L 79 20 151/73 H 98 11/04/17 16:48 11/04/17 16:48 11/04/17 16:48 11/04/17 16:48 11/04/17 16:48 Intake and Output: 11/04/17 11/04/17 06:59 18:59 Intake Total 1100 905 Balance 1100 905 - Medications Medications: Current Medications Acyclovir (Zovirax) 400 mg PO BID [facility] PRN Reason: Protocol Stop: 11/12/17 22:01 Last Admin: 11/04/17 13:49 Dose: 400 mg Aspirin (Aspirin Chewable) 81 mg PO DAILY [facility] Last Admin: 11/04/17 13:44 Dose: Not Given Carvedilol (Coreg) 3.125 mg PO DAILY [facility] Last Admin: 11/04/17 13:50 Dose: 3.125 mg Ciprofloxacin (Cipro) 500 mg PO Q12H [facility] Ergocalciferol (Drisdol 50,000 Intl Units Cap) 1 cap PO QWK [facility] Folic Acid (Folic Acid) 1 mg PO DAILY [facility] Last Admin: 11/04/17 13:49 Dose: 1 mg Furosemide (Lasix) 40 mg IVP DAILY [facility] Last Admin: 11/04/17 10:55 Dose: 40 mg Gabapentin (Neurontin) 600 mg PO DAILY [facility] Last Admin: 11/04/17 13:48 Dose: 600 mg Glimepiride (Amaryl) 2 mg PO DAILY [facility] Last Admin: 11/04/17 10:50 Dose: Not Given Sodium Chloride (Sodium Chloride 0.9%) 1,000 mls @ 75 mls/hr IV .[id number] [facility] Last Admin: 11/04/17 00:27 Dose: 75 mls/hr Insulin Aspart (Novolog) 0 unit SC ACHS [facility] PRN Reason: Protocol Last Admin: 11/04/17 11:57 Dose: Not Given Levothyroxine Sodium (Synthroid) 50 mcg PO DAILY@0630 [facility] Last Admin: 11/04/17 06:56 Dose: 50 mcg Pantoprazole Sodium (Protonix Ec Tab) 40 mg PO DAILY [facility] Last Admin: 11/04/17 13:49 Dose: 40 mg Potassium Chloride (K-Dur 20 Meq Er Tab) 20 meq PO DAILY [facility] Last Admin: 11/04/17 13:49 Dose: 20 meq Rosuvastatin Calcium (Crestor) 10 mg PO HS [facility] Last Admin: 11/03/17 22:18 Dose: 10 mg Sitagliptin Phosphate (Januvia) 50 mg PO DAILY [facility] Last Admin: 11/04/17 10:51 Dose: Not Given Sucralfate (Carafate Oral Susp) 1 gm PO ACS [facility] Tramadol HCl (Ultram) 50 mg PO Q6H PRN PRN Reason: Pain, moderate (4-7) Last Admin: 11/04/17 03:34 Dose: 50 mg - Labs Labs: 11/04/17 17:01 11/04/17 08:43 - Constitutional Appears: Well - Head Exam Head Exam: ATRAUMATIC, NORMAL INSPECTION, NORMOCEPHALIC - Eye Exam Eye Exam: EOMI, Normal appearance, PERRL Pupil Exam: NORMAL ACCOMODATION, PERRL - ENT Exam ENT Exam: Mucous Membranes Moist, Normal Exam - Neck Exam Neck Exam: Full ROM, Normal Inspection. absent: Lymphadenopathy - Respiratory Exam Respiratory Exam: Decreased Breath Sounds - Cardiovascular Exam Cardiovascular Exam: REGULAR RHYTHM, +S1, +S2 - GI/Abdominal Exam GI & Abdominal Exam: Soft, Diminished Bowel Sounds - Rectal Exam Rectal Exam: Deferred
[2017-11-04 18:02] LABS: INR 5.3
[2017-11-04 18:03] LABS: PARTIAL THROMBOPLASTIN TIME > 400 SECONDS (21-34)
[2017-11-04 18:04] LABS: PROTHROMBIN TIME 58.3 SECONDS (9.7-12.2)
[2017-11-04] MEDS: Sucralfate 1 gm/10 ml Oral Susp UD PO SCH (21:59)
[2017-11-04 23:30] LABS: HEMOGLOBIN 10.7 g/dL (11.0-16.0); MEAN CELL VOLUME 84.2 fL (81.0-99.0); MEAN CORPUSCULAR HGB CONC 36.9 g/dL (33.0-37.0); MEAN PLATELET VOLUME 9.4 fL (7.2-11.7); RBC 3.44 Mil/uL (3.80-5.20); RED CELL DISTRIBUTION WIDTH 14.9 % (11.5-14.5)
[2017-11-05] MEDS: Sodium Chloride 0.9% 1,000 ML IV SCH ×2 (02:32→15:20)
[2017-11-05 04:31] LABS: BASO # 0.1 K/uL (0.0-0.2); BASO % 0.8 % (0.0-2.0); EOS # 0.3 K/uL (0.0-0.7); EOS % 4.5 % (0.0-4.0); HEMOGLOBIN 10.3 g/dL (11.0-16.0); LYMPH # 2.4 K/uL (1.0-4.3); LYMPH % 31.4 % (20.0-40.0); MEAN CELL VOLUME 86.4 fL (81.0-99.0); MEAN CORPUSCULAR HEMOGLOBIN 30.7 pg (27.0-31.0); MEAN CORPUSCULAR HGB CONC 35.5 g/dL (33.0-37.0); MEAN PLATELET VOLUME 7.7 fL (7.2-11.7); MONO # 0.9 K/uL (0.0-0.8); MONO % 11.8 % (0.0-10.0); NEUT # 3.9 K/uL (1.8-7.0); NEUT % 51.5 % (50.0-75.0); NRBC % 0.1 % (0.0-2.0); RBC 3.37 Mil/uL (3.80-5.20); RED CELL DISTRIBUTION WIDTH 14.7 % (11.5-14.5); WHITE BLOOD COUNT 7.7 K/uL (4.8-10.8)
[2017-11-05 04:36] LABS: INR 1.2; PROTHROMBIN TIME 13.1 SECONDS (9.7-12.2)
[2017-11-05 04:48] LABS: ALB/GLOB RATIO 1.2 (1.0-2.1); ALBUMIN 3.8 g/dL (3.5-5.0); CALCIUM 9.6 mg/dl (8.6-10.4)
--- NOTE | 2017-11-05 06:25 | CP.PCM.PN ---
Subjective - Date & Time of Evaluation Date of Evaluation: 11/05/17 Time of Evaluation: 06:25 - Subjective Subjective: Progress Note for Dr. Hollis Patient seen and examined at bedside. Patient had endoscopy yesterday morning. When patient returned she was due for ciprofloxacin dose. Patient was given intravenous heparin bolus instead of ciprofloxacin. Attending Dr. Armando Hollis made aware via nurse practitioner assigned to [address] [place] [address]. CBC and coagulation follow up studies were ordered per Dr. Hollis's instructions. This resident was made aware of event this morning by charge nurse of Navid Cornejo. Patient was assessed at bedside immediately. Patient found in no acute distress. Interpretation services - [employer] [id number] - utilized for exam. Patient found oriented to person, place, and time. Patient denied bleeding from gums, ears, eyes, nose, mouth, vaginally, or rectally. Patient was informed of medication error this morning. Patient expressed concern "her lungs would explode." It was explained to patient that heparin put her at higher risk of bleeding but that her blood was being monitored with interval labwork to gauge bleeding risk. Patient denied lightheadedness, dizziness, headache, confusion, chest pain, abdominal pain, nausea, vomiting, hematuria, or hematochezia. Attending Dr. Hollis notified of AM labwork. Dr. Cornelius's service paged by nursing floor. Objective - Vital Signs/Intake and Output Vital Signs (last 24 hours): Temp Pulse Resp BP Pulse Ox 98.6 F 60 20 130/68 96 11/05/17 04:00 11/05/17 04:00 11/05/17 04:00 11/05/17 04:00 11/05/17 04:00 Intake and Output: 11/04/17 11/05/17 18:59 06:59 Intake Total 905 Balance 905 - Medications Medications: Current Medications Acyclovir (Zovirax) 400 mg PO BID [facility] PRN Reason: Protocol Stop: 11/12/17 22:01 Last Admin: 11/04/17 17:44 Dose: 400 mg Aspirin (Aspirin Chewable) 81 mg PO DAILY [facility] Last Admin: 11/04/17 13:44 Dose: Not Given Carvedilol (Coreg) 3.125 mg PO DAILY [facility] Last Admin: 11/04/17 13:50 Dose: 3.125 mg Ciprofloxacin (Cipro) 500 mg PO Q12H [facility] Last Admin: 11/04/17 21:59 Dose: 500 mg Ergocalciferol (Drisdol 50,000 Intl Units Cap) 1 cap PO QWK [facility] Folic Acid (Folic Acid) 1 mg PO DAILY [facility] Last Admin: 11/04/17 13:49 Dose: 1 mg Furosemide (Lasix) 40 mg IVP DAILY [facility] Last Admin: 11/04/17 10:55 Dose: 40 mg Gabapentin (Neurontin) 600 mg PO DAILY [facility] Last Admin: 11/04/17 13:48 Dose: 600 mg Glimepiride (Amaryl) 2 mg PO DAILY [facility] Last Admin: 11/04/17 10:50 Dose: Not Given Sodium Chloride (Sodium Chloride 0.9%) 1,000 mls @ 75 mls/hr IV .[id number] [facility] Last Admin: 11/04/17 22:05 Dose: 75 mls/hr Insulin Aspart (Novolog) 0 unit SC ACHS [facility] PRN Reason: Protocol Last Admin: 11/04/17 21:19 Dose: Not Given Levothyroxine Sodium (Synthroid) 50 mcg PO DAILY@0630 [facility] Last Admin: 11/04/17 06:56 Dose: 50 mcg Pantoprazole Sodium (Protonix Ec Tab) 40 mg PO DAILY [facility] Last Admin: 11/04/17 13:49 Dose: 40 mg Potassium Chloride (K-Dur 20 Meq Er Tab) 20 meq PO DAILY [facility] Last Admin: 11/04/17 13:49 Dose: 20 meq Rosuvastatin Calcium (Crestor) 10 mg PO HS [facility] Last Admin: 11/04/17 21:59 Dose: 10 mg Sitagliptin Phosphate (Januvia) 50 mg PO DAILY [facility] Last Admin: 11/04/17 10:51 Dose: Not Given Sucralfate (Carafate Oral Susp) 1 gm PO ACBHS [facility] Last Admin: 11/04/17 21:59 Dose: 1 gm Tramadol HCl (Ultram) 50 mg PO Q6H PRN PRN Reason: Pain, moderate (4-7) Last Admin: 11/04/17 03:34 Dose: 50 mg - Labs Labs: 11/05/17 04:26 11/05/17 04:26 PT 13.1 SECONDS (9.7-12.2) H D 11/05/17 04:26 INR 1.2 D 11/05/17 04:26 APTT 48 SECONDS (21-34) H D 11/05/17 04:26 - Constitutional Appears: Non-toxic, No Acute Distress - Head Exam Head Exam: ATRAUMATIC, NORMAL INSPECTION - Eye Exam Eye Exam: EOMI. absent: Scleral icterus Pupil Exam: PERRL - ENT Exam ENT Exam: Mucous Membranes Moist, Normal External Ear Exam Additional comments: no bleeding from eyes, ears, nose, or mouth/gums noted - Neck Exam Neck Exam: Full ROM - Respiratory Exam Respiratory Exam: Clear to Ausculation Bilateral, NORMAL BREATHING PATTERN. absent: Rales, Rhonchi, Wheezes, Respiratory Distress - Cardiovascular Exam Cardiovascular Exam: REGULAR RHYTHM, +S1, +S2 - GI/Abdominal Exam GI & Abdominal Exam: Soft, Normal Bowel Sounds. absent: Tenderness - Rectal Exam Rectal Exam: Hemorrhoids (external (two - 5 o clock, 9 o clock)). absent: Black Stool, Bloody Stool Additional comments: No murray blood on rectal exam, no murray blood in rectal vault, Negative Hemoccult performed at bedside (with nursing caretaker grounds Navid and indemand interpretation - Adonis Edgar [id number]) No murray blood on vaginal exam - Extremities Exam Extremities Exam: Normal Inspection. absent: Pedal Edema, Tenderness - Back Exam Back Exam: absent: CVA tenderness (L), CVA tenderness (R), rash noted - Neurological Exam Neurological Exam: Alert, Awake, CN II-XII Intact, Oriented x3 Neuro motor strength exam: Left Upper Extremity: 5, Right Upper Extremity: 5, Left Lower Extremity: 5, Right Lower Extremity: 5 Additional comments: light touch intact bilaterally and globally through upper and lower extremity dermatomes finger to nose intact - Psychiatric Exam Psychiatric exam: Normal Affect, Normal Mood - Skin Skin Exam: Normal Color, Warm Additional comments: no bleeding from IV sites appreciated Assessment and Plan - Assessment and Plan (Free Text) Plan: Gastroenteritis Admit to med/surg Afebrile, No WBC GI consulted, Dr. Cornelius help appreciated -Endoscopy (11/04/17): Small hiatal hernia. Erythematous mucosa w/o bleeding in entire stomach. Biopsy taken. Patchy erythematous mucosa in entire duodenum. - CA 8.4, CEA 1.9 (WNL) Ciprofloxacin 400mg Q12h (Day 2) Ultram 50mg Q6 prn IVF NS 75ml/hr -Urine culture likely contaminated, repeat pending Medication Administration Error Heparin bolus given instead of Cipro CBC, PTT followed per Dr Hollis's instructions 11/04/17 1740pm PT 58.3, INR 5.3, PTT > 400 11/04/17 2228pm PTT >400 11/05/17 426am PT 13.1, INR 1.2, PTT 48 11/05/17 1041 PT 12.3, INR 1.1, PTT 32 Pt denies bleeding; no bleeding on exam Vesicular rash -Acyclovir 400mg BID Electrolyte imbalance -NS @75ml/hr; Na stable at 129 -Potassium repleted -Follow up AM labs, replete as needed CHF (diastolic - HFrEF) -Lasix 40mg IV -Coreg 3.125mg -Aspirin 81mg HELD -Echo from 09/25/17 EF>70% DM -Januvia 50mg -Glimepiride 2mg -ISS -Accucheck ACHS Hypothyroidism -Synthroid 50mcg po Vitamin D def -Ergocalciferol [id number] qwk CKD Cr 1.4, GFR 37 - Cr improved since admission (1.6) NS at 75cc/hr Prophylactic measures -Heparin 5000u Q12 HELD -Protonix 40mg -PT eval and treat Case discussed with attending physician All management per Dr. Hollis
[2017-11-05] MEDS: Sucralfate 1 gm/10 ml Oral Susp UD PO SCH ×2 (06:31→21:44)
[2017-11-05] MEDS: Levothyroxine 50 MCG TAB PO SCH (06:31)
[2017-11-05] MEDS: (Novolog) Insulin Aspart, Recombinant 100 u/ml 10 ml vial SC SCH ×4 (07:30→21:17)
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
[2017-11-05] MEDS: Potassium Chloride 20 mEq ER Tab PO SCH (09:53)
[2017-11-05] MEDS: Pantoprazole 40 mg EC Tab PO SCH (09:53)
[2017-11-05 10:46] LABS: HEMOGLOBIN 10.7 g/dL (11.0-16.0); MEAN CELL VOLUME 86.6 fL (81.0-99.0); MEAN CORPUSCULAR HEMOGLOBIN 30.6 pg (27.0-31.0); MEAN CORPUSCULAR HGB CONC 35.3 g/dL (33.0-37.0); MEAN PLATELET VOLUME 7.2 fL (7.2-11.7); RBC 3.5 Mil/uL (3.80-5.20); RED CELL DISTRIBUTION WIDTH 14.6 % (11.5-14.5)
[2017-11-05 11:22] LABS: INR 1.1; PROTHROMBIN TIME 12.3 SECONDS (9.7-12.2)
--- NOTE | 2017-11-05 17:24 | CP.PCM.PN ---
Subjective - Date & Time of Evaluation Date of Evaluation: 11/05/17 Time of Evaluation: 10:00 - Subjective Subjective: clinically same Objective - Vital Signs/Intake and Output Vital Signs (last 24 hours): Temp Pulse Resp BP Pulse Ox 98.0 F 58 L 20 138/71 97 11/05/17 17:20 11/05/17 17:20 11/05/17 17:20 11/05/17 17:20 11/05/17 17:20 - Medications Medications: Current Medications Acyclovir (Zovirax) 400 mg PO BID [facility] PRN Reason: Protocol Stop: 11/12/17 22:01 Last Admin: 11/05/17 10:28 Dose: 400 mg Aspirin (Aspirin Chewable) 81 mg PO DAILY [facility] Last Admin: 11/04/17 13:44 Dose: Not Given Carvedilol (Coreg) 3.125 mg PO DAILY [facility] Last Admin: 11/05/17 09:53 Dose: 3.125 mg Ciprofloxacin (Cipro) 500 mg PO Q12H [facility] Last Admin: 11/05/17 09:54 Dose: 500 mg Ergocalciferol (Drisdol 50,000 Intl Units Cap) 1 cap PO QWK [facility] Folic Acid (Folic Acid) 1 mg PO DAILY [facility] Last Admin: 11/05/17 09:53 Dose: 1 mg Furosemide (Lasix) 40 mg IVP DAILY [facility] Last Admin: 11/05/17 09:54 Dose: 40 mg Gabapentin (Neurontin) 600 mg PO DAILY [facility] Last Admin: 11/05/17 09:53 Dose: 600 mg Glimepiride (Amaryl) 2 mg PO DAILY [facility] Last Admin: 11/05/17 09:53 Dose: 2 mg Sodium Chloride (Sodium Chloride 0.9%) 1,000 mls @ 75 mls/hr IV .[id number] [facility] Last Admin: 11/05/17 15:20 Dose: 75 mls/hr Insulin Aspart (Novolog) 0 unit SC ACHS [facility] PRN Reason: Protocol Last Admin: 11/05/17 16:49 Dose: Not Given Levothyroxine Sodium (Synthroid) 50 mcg PO DAILY@0630 [facility] Last Admin: 11/05/17 06:31 Dose: 50 mcg Pantoprazole Sodium (Protonix Ec Tab) 40 mg PO DAILY [facility] Last Admin: 11/05/17 09:53 Dose: 40 mg Potassium Chloride (K-Dur 20 Meq Er Tab) 20 meq PO DAILY [facility] Last Admin: 11/05/17 09:53 Dose: 20 meq Rosuvastatin Calcium (Crestor) 10 mg PO HS [facility] Last Admin: 11/04/17 21:59 Dose: 10 mg Sitagliptin Phosphate (Januvia) 50 mg PO DAILY [facility] Last Admin: 11/05/17 09:53 Dose: 50 mg Sucralfate (Carafate Oral Susp) 1 gm PO ACBHS [facility] Last Admin: 11/05/17 06:31 Dose: 1 gm Tramadol HCl (Ultram) 50 mg PO Q6H PRN PRN Reason: Pain, moderate (4-7) Last Admin: 11/04/17 03:34 Dose: 50 mg - Labs Labs: 11/05/17 10:41 11/05/17 04:26 PT 12.3 SECONDS (9.7-12.2) H 11/05/17 10:41 INR 1.1 11/05/17 10:41 APTT 32 SECONDS (21-34) D 11/05/17 10:41 - Constitutional Appears: Well - Head Exam Head Exam: ATRAUMATIC, NORMAL INSPECTION, NORMOCEPHALIC - Eye Exam Eye Exam: EOMI, Normal appearance, PERRL Pupil Exam: NORMAL ACCOMODATION, PERRL - ENT Exam ENT Exam: Mucous Membranes Moist, Normal Exam - Neck Exam Neck Exam: Full ROM, Normal Inspection. absent: Lymphadenopathy - Respiratory Exam Respiratory Exam: Decreased Breath Sounds - Cardiovascular Exam Cardiovascular Exam: REGULAR RHYTHM, +S1, +S2 - GI/Abdominal Exam GI & Abdominal Exam: Soft, Diminished Bowel Sounds - Rectal Exam Rectal Exam: Deferred Assessment and Plan - Assessment and Plan (Free Text) Plan: spoke to son(clay teixeira from [facility]) at length about heparin related incident also discused with staff yesterday stu as ordered and monitored for bleeding no need for antidote or ffp or any other med will monitor blood test s/p gi abd pain muich better edema in both leg has improved significantly
--- NOTE | 2017-11-05 19:39 | PN ---
DATE: 11/05/2017 LOCATION: 570, Bed A. SUBJECTIVE: This 72 years old female seen and examined in rounds today with much less abdominal pain. No chest pain or palpitation. No reported significant evidence of bleeding, shortness of breath. No nausea or vomiting this morning, but there was slight abdominal tenderness. The entire chart is reviewed including, but not limited to, the most recent lab and radiology study results, current and previous medication list, current and previous medical events as well as allergy to medication list. The case discussed with the staff at length and the patient. Today's labs showed hemoglobin 10.7, hematocrit 30.3, with PT 12.3 and normal PTT. Sodium is still low at 129, BUN 23, creatinine 1.3, and glucose 152. PHYSICAL EXAMINATION: GENERAL: A 72 years old female. VITAL SIGNS: Afebrile with pulse of 63, respiratory rate 20 to 22, blood pressure 138/74. HEENT: Showed pale, dry, oral mucous membrane. Nonicteric sclerae. LUNGS: Scattered crepitation. Decreased air entry at bases. HEART: Positive S1 and S2. ABDOMEN: Soft with mild generalized tenderness. No mass or organomegaly. No rebound tenderness or guarding. EXTREMITIES: Without edema, clubbing or cyanosis. NEUROLOGIC: No new reported neurological deficits, sensory or motor. IMPRESSION: 1. Acute gastroenteritis, peptic ulcer disease with anemia. 2. Electrolyte imbalance. 3. Hypertension, congestive heart failure and diabetes mellitus by history. 4. Hypothyroidism by history. 5. Mild renal insufficiency. SUGGESTIONS: 1. Continue current management. 2. Follow up on pathology report. 3. Advance oral intake. 4. Due to the patient's hyponatremia, IV fluid are required and that was discussed at length with the patient. She understood her need for IV fluid. 5. It has to be mentioned also the official pathology report of gastric biopsy showed negative helicobacter pylori. 6. Further recommendation to follow and whenever the patient's electrolyte imbalance is fully corrected, the patient may DC home. Imani Delarosa MD
[2017-11-06] MEDS: Sodium Chloride 0.9% 1,000 ML IV SCH (03:15)
[2017-11-06] MEDS: Sucralfate 1 gm/10 ml Oral Susp UD PO SCH ×2 (06:41→21:44)
[2017-11-06] MEDS: Levothyroxine 50 MCG TAB PO SCH (06:42)
--- NOTE | 2017-11-06 08:17 | CP.PCM.PN ---
Subjective - Date & Time of Evaluation Date of Evaluation: 11/04/17 Time of Evaluation: 17:00 - Subjective Subjective: NOTIFY BY CONNOR HAQ AROUND 1630; THE PATIENT HAD A HEPARIN INFUSION INSTEAD OF CIPRO FROM THE PREVIOUS SHIFT; ON THE COMPUTER CIPRO WAS GIVEN AT 1350PM/ STAT CBC/PTT/INR WERE ORDERED BY ME I NOTIFIED PMD DR Bharat GUPTA OVER THE PHONE AND LATER HE CAME TO THE UNIT AND MADE ROUND. PMD WANTED TO MONITOR THE PATIENT FOR THE MOMENT/ NO NEED FOR ICU EVAL AT THIS TIME I ORDERED CBC/PTT/INR Q6H FOR 24 HOURS/ INSTRUCT THE NURSE TO MONITOR SIGN OF BLEEDING Q1H AND ICU CONSULT IF PATIENT START BLEEDING Objective - Vital Signs/Intake and Output Vital Signs (last 24 hours): Temp Pulse Resp BP Pulse Ox 98.2 F 63 20 137/77 97 11/06/17 07:00 11/06/17 07:00 11/06/17 07:00 11/06/17 07:00 11/06/17 07:00 Intake and Output: 11/06/17 11/06/17 06:59 18:59 Intake Total 220 Balance 220 - Medications Medications: Current Medications Acyclovir (Zovirax) 400 mg PO BID [facility] PRN Reason: Protocol Stop: 11/12/17 22:01 Last Admin: 11/05/17 17:40 Dose: 400 mg Aspirin (Aspirin Chewable) 81 mg PO DAILY [facility] Last Admin: 11/04/17 13:44 Dose: Not Given Carvedilol (Coreg) 3.125 mg PO DAILY [facility] Last Admin: 11/05/17 09:53 Dose: 3.125 mg Ciprofloxacin (Cipro) 500 mg PO Q12H [facility] Last Admin: 11/05/17 21:44 Dose: 500 mg Ergocalciferol (Drisdol 50,000 Intl Units Cap) 1 cap PO QWK [facility] Folic Acid (Folic Acid) 1 mg PO DAILY [facility] Last Admin: 11/05/17 09:53 Dose: 1 mg Furosemide (Lasix) 40 mg IVP DAILY [facility] Last Admin: 11/05/17 09:54 Dose: 40 mg Gabapentin (Neurontin) 600 mg PO DAILY [facility] Last Admin: 11/05/17 09:53 Dose: 600 mg Glimepiride (Amaryl) 2 mg PO DAILY [facility] Last Admin: 11/05/17 09:53 Dose: 2 mg Sodium Chloride (Sodium Chloride 0.9%) 1,000 mls @ 75 mls/hr IV .[id number] [facility] Last Admin: 11/06/17 03:15 Dose: 75 mls/hr Insulin Aspart (Novolog) 0 unit SC ACHS [facility] PRN Reason: Protocol Last Admin: 11/05/17 21:17 Dose: Not Given Levothyroxine Sodium (Synthroid) 50 mcg PO DAILY@0630 [facility] Last Admin: 11/06/17 06:42 Dose: 50 mcg Pantoprazole Sodium (Protonix Ec Tab) 40 mg PO DAILY [facility] Last Admin: 11/05/17 09:53 Dose: 40 mg Potassium Chloride (K-Dur 20 Meq Er Tab) 20 meq PO DAILY [facility] Last Admin: 11/05/17 09:53 Dose: 20 meq Rosuvastatin Calcium (Crestor) 10 mg PO HS [facility] Last Admin: 11/05/17 21:44 Dose: 10 mg Sitagliptin Phosphate (Januvia) 50 mg PO DAILY [facility] Last Admin: 11/05/17 09:53 Dose: 50 mg Sucralfate (Carafate Oral Susp) 1 gm PO ACBHS [facility] Last Admin: 11/06/17 06:41 Dose: 1 gm Tramadol HCl (Ultram) 50 mg PO Q6H PRN PRN Reason: Pain, moderate (4-7) Last Admin: 11/04/17 03:34 Dose: 50 mg - Labs Labs: 11/05/17 10:41 11/05/17 04:26 PT 12.3 SECONDS (9.7-12.2) H 11/05/17 10:41 INR 1.1 11/05/17 10:41 APTT 32 SECONDS (21-34) D 11/05/17 10:41
[2017-11-06 08:54] LABS: ALB/GLOB RATIO 1.2 (1.0-2.1); ALBUMIN 3.9 g/dL (3.5-5.0); CALCIUM 9.9 mg/dl (8.6-10.4)
[2017-11-06] MEDS: (Novolog) Insulin Aspart, Recombinant 100 u/ml 10 ml vial SC SCH ×4 (08:55→21:24)
[2017-11-06 09:15] LABS: BASO % 0.7 % (0.0-2.0); EOS # 0.3 K/uL (0.0-0.7); EOS % 5.5 % (0.0-4.0); HEMOGLOBIN 10.2 g/dL (11.0-16.0); LYMPH # 1.7 K/uL (1.0-4.3); MEAN CELL VOLUME 86.5 fL (81.0-99.0); MEAN CORPUSCULAR HGB CONC 35.8 g/dL (33.0-37.0); MEAN PLATELET VOLUME 7.6 fL (7.2-11.7); MONO # 0.6 K/uL (0.0-0.8); NEUT # 3.7 K/uL (1.8-7.0); NEUT % 57.8 % (50.0-75.0); RBC 3.28 Mil/uL (3.80-5.20); RED CELL DISTRIBUTION WIDTH 14.8 % (11.5-14.5); WHITE BLOOD COUNT 6.4 K/uL (4.8-10.8)
[2017-11-06] MEDS: Potassium Chloride 20 mEq ER Tab PO SCH (09:36)
[2017-11-06] MEDS: Pantoprazole 40 mg EC Tab PO SCH (09:37)
--- NOTE | 2017-11-06 09:38 | CP.PCM.PN ---
Subjective - Date & Time of Evaluation Date of Evaluation: 11/06/17 Time of Evaluation: 09:36 - Subjective Subjective: Progress Note for Dr. Hollis Patient seen and examined at bedside. Nursing reports no acute events overnight. Patient found resting comfortably in bed. She denies bleeding from any sites overnight. Patient reports abdominal pain greatly improved. Denies chest pain, palpitations, SOB. Objective - Vital Signs/Intake and Output Vital Signs (last 24 hours): Temp Pulse Resp BP Pulse Ox 98.4 F 73 18 137/71 98 11/06/17 09:34 11/06/17 09:34 11/06/17 09:34 11/06/17 09:34 11/06/17 09:34 Intake and Output: 11/06/17 11/06/17 06:59 18:59 Intake Total 220 Balance 220 - Medications Medications: Current Medications Acyclovir (Zovirax) 400 mg PO BID [facility] PRN Reason: Protocol Stop: 11/12/17 22:01 Last Admin: 11/05/17 17:40 Dose: 400 mg Aspirin (Aspirin Chewable) 81 mg PO DAILY [facility] Last Admin: 11/04/17 13:44 Dose: Not Given Carvedilol (Coreg) 3.125 mg PO DAILY [facility] Last Admin: 11/05/17 09:53 Dose: 3.125 mg Ciprofloxacin (Cipro) 500 mg PO Q12H [facility] Last Admin: 11/05/17 21:44 Dose: 500 mg Ergocalciferol (Drisdol 50,000 Intl Units Cap) 1 cap PO QWK [facility] Folic Acid (Folic Acid) 1 mg PO DAILY [facility] Last Admin: 11/05/17 09:53 Dose: 1 mg Furosemide (Lasix) 40 mg IVP DAILY [facility] Last Admin: 11/05/17 09:54 Dose: 40 mg Gabapentin (Neurontin) 600 mg PO DAILY [facility] Last Admin: 11/05/17 09:53 Dose: 600 mg Glimepiride (Amaryl) 2 mg PO DAILY [facility] Last Admin: 11/05/17 09:53 Dose: 2 mg Sodium Chloride (Sodium Chloride 0.9%) 1,000 mls @ 75 mls/hr IV .[id number] [facility] Last Admin: 11/06/17 03:15 Dose: 75 mls/hr Insulin Aspart (Novolog) 0 unit SC ACHS [facility] PRN Reason: Protocol Last Admin: 11/05/17 21:17 Dose: Not Given Levothyroxine Sodium (Synthroid) 50 mcg PO DAILY@0630 [facility] Last Admin: 11/06/17 06:42 Dose: 50 mcg Pantoprazole Sodium (Protonix Ec Tab) 40 mg PO DAILY [facility] Last Admin: 11/05/17 09:53 Dose: 40 mg Potassium Chloride (K-Dur 20 Meq Er Tab) 20 meq PO DAILY [facility] Last Admin: 11/05/17 09:53 Dose: 20 meq Rosuvastatin Calcium (Crestor) 10 mg PO HS [facility] Last Admin: 11/05/17 21:44 Dose: 10 mg Sitagliptin Phosphate (Januvia) 50 mg PO DAILY [facility] Last Admin: 11/05/17 09:53 Dose: 50 mg Sucralfate (Carafate Oral Susp) 1 gm PO ACBHS [facility] Last Admin: 11/06/17 06:41 Dose: 1 gm Tramadol HCl (Ultram) 50 mg PO Q6H PRN PRN Reason: Pain, moderate (4-7) Last Admin: 11/04/17 03:34 Dose: 50 mg - Labs Labs: 11/06/17 08:25 11/06/17 08:25 PT 12.3 SECONDS (9.7-12.2) H 11/05/17 10:41 INR 1.1 11/05/17 10:41 APTT 32 SECONDS (21-34) D 11/05/17 10:41 - Constitutional Appears: Non-toxic, No Acute Distress - Head Exam Head Exam: ATRAUMATIC, NORMAL INSPECTION - Eye Exam Eye Exam: EOMI. absent: Scleral icterus Pupil Exam: PERRL - ENT Exam ENT Exam: Mucous Membranes Moist - Neck Exam Neck Exam: Full ROM - Respiratory Exam Respiratory Exam: Clear to Ausculation Bilateral, NORMAL BREATHING PATTERN. absent: Rales, Rhonchi, Wheezes - Cardiovascular Exam Cardiovascular Exam: REGULAR RHYTHM, +S1, +S2 - GI/Abdominal Exam GI & Abdominal Exam: Soft, Normal Bowel Sounds. absent: Tenderness - Extremities Exam Extremities Exam: Normal Inspection. absent: Pedal Edema - Back Exam Back Exam: absent: CVA tenderness (L), CVA tenderness (R) - Neurological Exam Neurological Exam: Alert, Awake, Oriented x3 - Psychiatric Exam Psychiatric exam: Normal Affect, Normal Mood - Skin Skin Exam: Normal Color, Warm Assessment and Plan - Assessment and Plan (Free Text) Plan: Gastroenteritis/PUD Admit to med/surg Afebrile, No WBC GI consulted, Dr. Cornelius help appreciated -Endoscopy (11/04/17): Small hiatal hernia. Erythematous mucosa w/o bleeding in entire stomach. Biopsy taken. Patchy erythematous mucosa in entire duodenum. Negative specimen for H.pylori - CA 8.4, CEA 1.9 (WNL) Ciprofloxacin 400mg Q12h Ultram 50mg Q6 prn IVF NS 75ml/hr -UA negative Medication Administration Error Heparin bolus given instead of Cipro CBC, PTT followed per Dr Hollis's instructions 11/04/17 1740 PT 58.3, INR 5.3, PTT > 400 11/04/17 2228 PTT >400 11/05/17 426 PT 13.1, INR 1.2, PTT 48 11/05/17 1041 PT 12.3, INR 1.1, PTT 32 Pt denies bleeding; no bleeding on exam Vesicular rash -Acyclovir 400mg BID Electrolyte imbalance -NS @75ml/hr; Na improved to 130 -Potassium repleted -Follow up AM labs, replete as needed CHF (diastolic - HFrEF) -Lasix 40mg IV -Coreg 3.125mg -Aspirin 81mg HELD -Echo from 09/25/17 EF>70% DM Accuchecks ACHS Hypoglycemia protocol -Januvia 50mg -Glimepiride 2mg -ISS -Accucheck ACHS Hypothyroidism -Synthroid 50mcg po Vitamin D def -Ergocalciferol [id number] qwk CKD Cr 1.4, GFR 37 - Cr improved since admission (1.6) NS at 75cc/hr Prophylactic measures -Heparin 5000u Q12 HELD -Protonix 40mg -PT eval and treat Disposition: Pt for discharge today. Case discussed with attending physician All management per Dr. Hollis
[2017-11-06] MEDS ORDERED: Glucagon Recombinant 1 mg Inj IM PRN (09:45)
[2017-11-06] MEDS ORDERED: Dextrose 50% SYRINGE Inj (50 ml) IV PRN (09:45)
--- NOTE | 2017-11-06 15:23 | PN ---
DATE: 11/06/2017 LOCATION: 570, bed A. SUBJECTIVE: This is a 72-year-old female seen and examined in rounds today, appeared to be stable clinically with less episode of abdominal pain, no vomiting with mild nausea and dyspepsia. No chest pain or palpitations and no reported significant clinical changes. The entire chart is reviewed including but not limited to the most recent lab and radiology study results, current and the previous medication list, current and the previous medical events. Today's lab results showed hemoglobin 10.2, hematocrit 28.4, sodium still low at 130, BUN 20, with normal creatinine, blood glucose level 170. PHYSICAL EXAMINATION: GENERAL: A 72-year-old female. VITAL SIGNS: Afebrile, awake, alert, and oriented with pulse of 68, respiratory rate 18 to 20, blood pressure 130/72. HEENT: Showed pale, dry, oral mucous membrane. Nonicteric sclerae. LUNGS: Few scattered mild crepitations. Breathing sounds are present bilaterally. HEART: Positive S1 and S2. ABDOMEN: Soft, with mild distention. No mass or organomegaly. No rebound tenderness or guarding. EXTREMITIES: Without significant clubbing, cyanosis, or edema. NEUROLOGIC: No reported new neurological deficits, sensory or motor. IMPRESSION: 1. Erosive gastritis, biopsies done, result still pending. 2. Known history of diabetes mellitus, hypothyroidism, with chronic renal insufficiency. 3. Electrolyte imbalance with hyponatremia. 4. Known history of hypertension, congestive heart failure. SUGGESTIONS: 1. Continue current management. 2. Repeat stool for occult blood due to the patient's anemia. 3. Correct underlying coagulopathy. Imani Delarosa MD
[2017-11-06 16:10] VITALS: RESP 20
--- NOTE | 2017-11-06 21:08 | CP.PCM.PN ---
Subjective - Date & Time of Evaluation Date of Evaluation: 11/06/17 Time of Evaluation: 09:20 - Subjective Subjective: clinically same Objective - Vital Signs/Intake and Output Vital Signs (last 24 hours): Temp Pulse Resp BP Pulse Ox 98.0 F 68 20 141/77 99 11/06/17 16:09 11/06/17 16:09 11/06/17 16:09 11/06/17 16:09 11/06/17 16:09 Intake and Output: 11/06/17 11/07/17 18:59 06:59 Intake Total 200 Balance 200 - Medications Medications: Current Medications Acyclovir (Zovirax) 400 mg PO BID [facility] PRN Reason: Protocol Stop: 11/12/17 22:01 Last Admin: 11/06/17 17:35 Dose: 400 mg Aspirin (Aspirin Chewable) 81 mg PO DAILY [facility] Last Admin: 11/04/17 13:44 Dose: Not Given Carvedilol (Coreg) 3.125 mg PO DAILY [facility] Last Admin: 11/06/17 09:37 Dose: 3.125 mg Ciprofloxacin (Cipro) 500 mg PO Q12H [facility] Last Admin: 11/06/17 09:37 Dose: 500 mg Dextrose (Dextrose 50% Inj) 0 ml IV STAT PRN; Protocol PRN Reason: Hypoglycemia Protocol Dextrose (Glutose 15) 0 gm PO ONCE PRN; Protocol PRN Reason: Hypoglycemia Protocol Ergocalciferol (Drisdol 50,000 Intl Units Cap) 1 cap PO QWK [facility] Folic Acid (Folic Acid) 1 mg PO DAILY [facility] Last Admin: 11/06/17 09:37 Dose: 1 mg Furosemide (Lasix) 40 mg IVP DAILY [facility] Last Admin: 11/06/17 09:37 Dose: 40 mg Gabapentin (Neurontin) 600 mg PO DAILY [facility] Last Admin: 11/06/17 09:37 Dose: 600 mg Glimepiride (Amaryl) 2 mg PO DAILY [facility] Last Admin: 11/06/17 09:37 Dose: 2 mg Glucagon (Glucagen Diagnostic Kit) 0 mg IM STAT PRN; Protocol PRN Reason: Hypoglycemia Protocol Dextrose (Dextrose 5% In Water 1000 Ml) 1,000 mls @ 0 mls/hr IV .Q0M PRN; Protocol; Per Protocol PRN Reason: Hypoglycemia Protocol Insulin Aspart (Novolog) 0 unit SC ACHS [facility] PRN Reason: Protocol Last Admin: 11/06/17 17:00 Dose: Not Given Levothyroxine Sodium (Synthroid) 50 mcg PO DAILY@0630 [facility] Last Admin: 11/06/17 06:42 Dose: 50 mcg Pantoprazole Sodium (Protonix Ec Tab) 40 mg PO DAILY [facility] Last Admin: 11/06/17 09:37 Dose: 40 mg Potassium Chloride (K-Dur 20 Meq Er Tab) 20 meq PO DAILY [facility] Last Admin: 11/06/17 09:36 Dose: 20 meq Rosuvastatin Calcium (Crestor) 10 mg PO HS [facility] Last Admin: 11/05/17 21:44 Dose: 10 mg Sitagliptin Phosphate (Januvia) 50 mg PO DAILY [facility] Last Admin: 11/06/17 09:37 Dose: 50 mg Sucralfate (Carafate Oral Susp) 1 gm PO ACBHS [facility] Last Admin: 11/06/17 06:41 Dose: 1 gm Tramadol HCl (Ultram) 50 mg PO Q6H PRN PRN Reason: Pain, moderate (4-7) Last Admin: 11/04/17 03:34 Dose: 50 mg - Labs Labs: 11/06/17 08:25 11/06/17 08:25 PT 12.3 SECONDS (9.7-12.2) H 11/05/17 10:41 INR 1.1 11/05/17 10:41 APTT 32 SECONDS (21-34) D 11/05/17 10:41 - Constitutional Appears: Well - Head Exam Head Exam: ATRAUMATIC, NORMAL INSPECTION, NORMOCEPHALIC - Eye Exam Eye Exam: EOMI, Normal appearance, PERRL Pupil Exam: NORMAL ACCOMODATION, PERRL - ENT Exam ENT Exam: Mucous Membranes Moist, Normal Exam - Neck Exam Neck Exam: Full ROM, Normal Inspection. absent: Lymphadenopathy - Respiratory Exam Respiratory Exam: Decreased Breath Sounds - Cardiovascular Exam Cardiovascular Exam: REGULAR RHYTHM, +S1, +S2 - GI/Abdominal Exam GI & Abdominal Exam: Soft, Diminished Bowel Sounds - Rectal Exam Rectal Exam: Deferred
[2017-11-07] MEDS: Levothyroxine 50 MCG TAB PO SCH (06:31)
[2017-11-07] MEDS: Sucralfate 1 gm/10 ml Oral Susp UD PO SCH (06:31)
[2017-11-07 07:39] VITALS: O2SAT 97
[2017-11-07 08:12] LABS: BASO # 0.1 K/uL (0.0-0.2); BASO % 0.8 % (0.0-2.0); EOS # 0.4 K/uL (0.0-0.7); EOS % 6.4 % (0.0-4.0); HEMOGLOBIN 10.8 g/dL (11.0-16.0); LYMPH # 1.9 K/uL (1.0-4.3); LYMPH % 27.8 % (20.0-40.0); MEAN CELL VOLUME 86.6 fL (81.0-99.0); MEAN CORPUSCULAR HEMOGLOBIN 30.9 pg (27.0-31.0); MEAN CORPUSCULAR HGB CONC 35.6 g/dL (33.0-37.0); MEAN PLATELET VOLUME 7.6 fL (7.2-11.7); MONO # 0.7 K/uL (0.0-0.8); MONO % 10.1 % (0.0-10.0); NEUT # 3.7 K/uL (1.8-7.0); NEUT % 54.9 % (50.0-75.0); RBC 3.49 Mil/uL (3.80-5.20); RED CELL DISTRIBUTION WIDTH 14.5 % (11.5-14.5); WHITE BLOOD COUNT 6.8 K/uL (4.8-10.8)
[2017-11-07 08:33] LABS: ALB/GLOB RATIO 1.2 (1.0-2.1)
[2017-11-07] MEDS: (Novolog) Insulin Aspart, Recombinant 100 u/ml 10 ml vial SC SCH ×3 (08:40→16:45)
--- NOTE | 2017-11-07 09:29 | CP.PCM.PN ---
Subjective - Date & Time of Evaluation Date of Evaluation: 11/07/17 Time of Evaluation: 09:28 - Subjective Subjective: Progress Note for Dr. Hollis Patient seen and examined at bedside. Nursing reports no acute events overnight. Patient reports doing well with physical therapy this AM. Objective - Vital Signs/Intake and Output Vital Signs (last 24 hours): Temp Pulse Resp BP Pulse Ox 98.0 F 75 20 168/79 H 97 11/07/17 07:00 11/07/17 08:27 11/07/17 07:00 11/07/17 07:00 11/07/17 07:00 - Medications Medications: Current Medications Acyclovir (Zovirax) 400 mg PO BID [facility] PRN Reason: Protocol Stop: 11/12/17 22:01 Last Admin: 11/06/17 17:35 Dose: 400 mg Aspirin (Aspirin Chewable) 81 mg PO DAILY [facility] Last Admin: 11/04/17 13:44 Dose: Not Given Carvedilol (Coreg) 3.125 mg PO DAILY [facility] Last Admin: 11/06/17 09:37 Dose: 3.125 mg Ciprofloxacin (Cipro) 500 mg PO Q12H [facility] Last Admin: 11/06/17 21:44 Dose: 500 mg Dextrose (Dextrose 50% Inj) 0 ml IV STAT PRN; Protocol PRN Reason: Hypoglycemia Protocol Dextrose (Glutose 15) 0 gm PO ONCE PRN; Protocol PRN Reason: Hypoglycemia Protocol Ergocalciferol (Drisdol 50,000 Intl Units Cap) 1 cap PO QWK [facility] Folic Acid (Folic Acid) 1 mg PO DAILY [facility] Last Admin: 11/06/17 09:37 Dose: 1 mg Furosemide (Lasix) 40 mg IVP DAILY [facility] Last Admin: 11/06/17 09:37 Dose: 40 mg Gabapentin (Neurontin) 600 mg PO DAILY [facility] Last Admin: 11/06/17 09:37 Dose: 600 mg Glimepiride (Amaryl) 2 mg PO DAILY [facility] Last Admin: 11/06/17 09:37 Dose: 2 mg Glucagon (Glucagen Diagnostic Kit) 0 mg IM STAT PRN; Protocol PRN Reason: Hypoglycemia Protocol Dextrose (Dextrose 5% In Water 1000 Ml) 1,000 mls @ 0 mls/hr IV .Q0M PRN; Protocol; Per Protocol PRN Reason: Hypoglycemia Protocol Insulin Aspart (Novolog) 0 unit SC ACHS [facility] PRN Reason: Protocol Last Admin: 11/06/17 21:24 Dose: Not Given Levothyroxine Sodium (Synthroid) 50 mcg PO DAILY@0630 [facility] Last Admin: 11/07/17 06:31 Dose: 50 mcg Pantoprazole Sodium (Protonix Ec Tab) 40 mg PO DAILY [facility] Last Admin: 11/06/17 09:37 Dose: 40 mg Potassium Chloride (K-Dur 20 Meq Er Tab) 20 meq PO DAILY [facility] Last Admin: 11/06/17 09:36 Dose: 20 meq Rosuvastatin Calcium (Crestor) 10 mg PO HS [facility] Last Admin: 11/06/17 21:44 Dose: 10 mg Sitagliptin Phosphate (Januvia) 50 mg PO DAILY [facility] Last Admin: 11/06/17 09:37 Dose: 50 mg Sucralfate (Carafate Oral Susp) 1 gm PO ACBHS [facility] Last Admin: 11/07/17 06:31 Dose: 1 gm Tramadol HCl (Ultram) 50 mg PO Q6H PRN PRN Reason: Pain, moderate (4-7) Last Admin: 11/04/17 03:34 Dose: 50 mg - Labs Labs: 11/07/17 07:55 11/07/17 07:55 PT 12.3 SECONDS (9.7-12.2) H 11/05/17 10:41 INR 1.1 11/05/17 10:41 APTT 32 SECONDS (21-34) D 11/05/17 10:41 - Additional Findings Additional findings: - Constitutional Appears: Non-toxic, No Acute Distress - Head Exam Head Exam: ATRAUMATIC, NORMAL INSPECTION - Eye Exam Eye Exam: EOMI. absent: Scleral icterus Pupil Exam: PERRL - ENT Exam ENT Exam: Mucous Membranes Moist - Neck Exam Neck Exam: Full ROM - Respiratory Exam Respiratory Exam: Clear to Ausculation Bilateral, NORMAL BREATHING PATTERN. absent: Rales, Rhonchi, Wheezes - Cardiovascular Exam Cardiovascular Exam: REGULAR RHYTHM, +S1, +S2 - GI/Abdominal Exam GI & Abdominal Exam: Soft, Normal Bowel Sounds. absent: Tenderness - Extremities Exam Extremities Exam: Normal Inspection. absent: Pedal Edema - Back Exam Back Exam: absent: CVA tenderness (L), CVA tenderness (R) - Neurological Exam Neurological Exam: Alert, Awake, Oriented x3 - Psychiatric Exam Psychiatric exam: Normal Affect, Normal Mood - Skin Skin Exam: Normal Color, Warm Assessment and Plan - Assessment and Plan (Free Text) Plan: Gastroenteritis/PUD Admit to med/surg Afebrile, No WBC GI consulted, Dr. Cornelius help appreciated -Endoscopy (11/04/17): Small hiatal hernia. Erythematous mucosa w/o bleeding in entire stomach. Biopsy taken. Patchy erythematous mucosa in entire duodenum. Negative specimen for H.pylori - CA 8.4, CEA 1.9 (WNL) Ciprofloxacin 400mg Q12h (start 11/02/17) Ultram 50mg Q6 prn Vesicular rash Acyclovir 400mg BID Electrolyte imbalance Hyponatremia Resolved -Potassium repleted -Follow up AM labs, replete as needed CHF (diastolic - HFrEF) -Restart home Lasix 80mg PO BID -Coreg 3.125mg -Restart Aspirin 81mg -Echo from 09/25/17 EF>70% DM [facility]ogly[facility] protocol -Januvia 50mg -Glimepiride 2mg -ISS -Accucheck [facility] Medication Administration Error Heparin bolus given instead of Cipro (11/05/17) CBC, PTT followed per Dr Hollis's instructions 11/04/17 1740 PT 58.3, INR 5.3, PTT > 400 11/04/17 2228 PTT >400 11/05/17 426 PT 13.1, INR 1.2, PTT 48 11/05/17 1041 PT 12.3, INR 1.1, PTT 32 Pt denies bleeding; no bleeding on exam Hypothyroidism -Synthroid 50mcg po Vitamin D def -Ergocalciferol [id number] qwk BENNETT on CKD Cr 1.4, GFR 37 on admission - Cr improved since admission (1.1) Prophylactic measures -Heparin 5000u Q12 HELD -Protonix 40mg -PT eval and treat: f.u recommendation Disposition: Pt for possible discharge today, pending PT recommendation Case discussed with attending physician All management per Dr. Hollis
[2017-11-07] MEDS: Pantoprazole 40 mg EC Tab PO SCH (09:58)
[2017-11-07] MEDS: Potassium Chloride 20 mEq ER Tab PO SCH (09:59)
[2017-11-07 15:51] VITALS: BP 135/73; PULSE 71; TEMP 97.7
--- NOTE | 2017-11-07 16:47 | CP.PCM.PN ---
Subjective - Date & Time of Evaluation Date of Evaluation: 11/07/17 Time of Evaluation: 10:20 - Subjective Subjective: clinically same Objective - Vital Signs/Intake and Output Vital Signs (last 24 hours): Temp Pulse Resp BP Pulse Ox 97.7 F 71 20 135/73 97 11/07/17 15:00 11/07/17 15:00 11/07/17 15:00 11/07/17 15:00 11/07/17 15:00 - Medications Medications: Current Medications Acyclovir (Zovirax) 400 mg PO BID [facility] PRN Reason: Protocol Stop: 11/12/17 22:01 Last Admin: 11/07/17 09:58 Dose: 400 mg Aspirin (Aspirin Chewable) 81 mg PO DAILY [facility] Last Admin: 11/07/17 09:15 Dose: Not Given Carvedilol (Coreg) 3.125 mg PO DAILY [facility] Last Admin: 11/07/17 09:58 Dose: 3.125 mg Ciprofloxacin (Cipro) 500 mg PO Q12H [facility] Last Admin: 11/07/17 09:59 Dose: 500 mg Dextrose (Dextrose 50% Inj) 0 ml IV STAT PRN; Protocol PRN Reason: Hypoglycemia Protocol Dextrose (Glutose 15) 0 gm PO ONCE PRN; Protocol PRN Reason: Hypoglycemia Protocol Ergocalciferol (Drisdol 50,000 Intl Units Cap) 1 cap PO QWK [facility] Folic Acid (Folic Acid) 1 mg PO DAILY [facility] Last Admin: 11/07/17 09:58 Dose: 1 mg Furosemide (Lasix) 80 mg PO BID [facility] Gabapentin (Neurontin) 600 mg PO DAILY [facility] Last Admin: 11/07/17 09:58 Dose: 600 mg Glimepiride (Amaryl) 2 mg PO DAILY [facility] Last Admin: 11/07/17 09:59 Dose: 2 mg Glucagon (Glucagen Diagnostic Kit) 0 mg IM STAT PRN; Protocol PRN Reason: Hypoglycemia Protocol Dextrose (Dextrose 5% In Water 1000 Ml) 1,000 mls @ 0 mls/hr IV .Q0M PRN; Protocol; Per Protocol PRN Reason: Hypoglycemia Protocol Insulin Aspart (Novolog) 0 unit SC ACHS [facility] PRN Reason: Protocol Last Admin: 11/07/17 13:09 Dose: 1 unit Levothyroxine Sodium (Synthroid) 50 mcg PO DAILY@0630 [facility] Last Admin: 11/07/17 06:31 Dose: 50 mcg Pantoprazole Sodium (Protonix Ec Tab) 40 mg PO DAILY [facility] Last Admin: 11/07/17 09:58 Dose: 40 mg Potassium Chloride (K-Dur 20 Meq Er Tab) 20 meq PO DAILY [facility] Last Admin: 11/07/17 09:59 Dose: 20 meq Rosuvastatin Calcium (Crestor) 10 mg PO HS [facility] Last Admin: 11/06/17 21:44 Dose: 10 mg Sitagliptin Phosphate (Januvia) 50 mg PO DAILY [facility] Last Admin: 11/07/17 09:58 Dose: 50 mg Sucralfate (Carafate Oral Susp) 1 gm PO ACBHS [facility] Last Admin: 11/07/17 06:31 Dose: 1 gm Tramadol HCl (Ultram) 50 mg PO Q6H PRN PRN Reason: Pain, moderate (4-7) Last Admin: 11/04/17 03:34 Dose: 50 mg - Labs Labs: 11/07/17 07:55 11/07/17 07:55 PT 12.3 SECONDS (9.7-12.2) H 11/05/17 10:41 INR 1.1 11/05/17 10:41 APTT 32 SECONDS (21-34) D 11/05/17 10:41 - Constitutional Appears: Well - Head Exam Head Exam: ATRAUMATIC, NORMAL INSPECTION, NORMOCEPHALIC - Eye Exam Eye Exam: EOMI, Normal appearance, PERRL Pupil Exam: NORMAL ACCOMODATION, PERRL - ENT Exam ENT Exam: Mucous Membranes Moist, Normal Exam - Neck Exam Neck Exam: Full ROM, Normal Inspection. absent: Lymphadenopathy - Respiratory Exam Respiratory Exam: Decreased Breath Sounds - Cardiovascular Exam Cardiovascular Exam: REGULAR RHYTHM ( ) Assessment and Plan (1) Abdominal pain Status: Acute (2) Acute on chronic renal failure Status: Acute (3) Acute renal failure Status: Acute (4) Anxiety attack Status: Acute (5) Bilateral lower extremity edema Status: Acute (6) CHF exacerbation Status: Acute (7) CKD (chronic kidney disease) Status: Acute (8) Cervical spinal stenosis Status: Acute (9) Chest pain Status: Acute (10) Chest pain Status: Acute (11) DVT prophylaxis Status: Acute (12) Diabetes Status: Acute (13) Diabetes mellitus type II, uncontrolled Status: Acute (14) Epistaxis Status: Acute (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 (16) Gait disorder Status: Acute (17) Gastritis Status: Acute (18) Hyperglycemia Status: Acute (19) Hypokalemia Status: Acute (20) Hyponatremia Status: Acute (21) Hyponatremia syndrome Status: Acute (22) Muscle weakness Status: Acute (23) Palpitations Status: Acute (24) Quadriparesis (muscle weakness) Status: Acute (25) DM2 (diabetes mellitus, type 2) Status: Chronic (26) HTN (hypertension) Status: Chronic (27) Hypothyroidism Status: Chronic - Assessment and Plan (Free Text) Plan: patient wanted to go to [facility] at first then she declined no abd pain s/p gi cleared by gi no abd edema no bodyache no bleeding pt will go to home instead [facility] as pt refused and declined to go to [facility] will followup in office on sat. pt made aware..
--- NOTE | 2017-11-07 22:53 | PN ---
DATE: LOCATION: 570, bed A. SUBJECTIVE: This is a 72-year-old female, seen and examined early in rounds today without any significant reported bleeding, chest pain, significant shortness of breath or palpitation. Tolerating intake well. The entire chart is reviewed including but not limited to most recent lab and radiology study results, current and the previous medication lists, current and the previous medical events. Case discussed with the staff at length. Gastric mucosal biopsy report was negative for Helicobacter pylori infection. Most recent lab result showed hemoglobin 10.8, hematocrit 30.2 with normal platelet count. Blood glucose level 151 with BUN 19, normal creatinine. PHYSICAL EXAMINATION: GENERAL: A 72-year-old female. VITAL SIGNS: Afebrile with heart rate of 74, respiratory rate 20 to 22, blood pressure 130/70. HEENT: Showed pale, dry oral mucous membrane. Nonicteric sclerae. LUNGS: Few scattered crepitations. Decreased air entry at bases. HEART: Positive S1 and S2. ABDOMEN: Soft with mild generalized tenderness. No mass or organomegaly. No rebound tenderness or guarding. EXTREMITIES: Without significant edema, clubbing, or cyanosis. NEUROLOGIC: No reported neurological deficits, sensory or motor. IMPRESSION: 1. Re-exacerbation of peptic ulcer disease, status post esophagogastroduodenoscopy. 2. Evidence of erosive gastritis. 3. Known history of hypothyroidism, diabetes mellitus with chronic renal insufficiency, improving. 4. Known history of congestive heart failure with hypertension. SUGGESTIONS: 1. Continue current management. 2. Follow up cancer marker due to the patient's anemia. 3. No further aggressive GI workup, and the patient may discharge home to be followed up as an outpatient. Imani Delarosa MD
[2017-11-09] MEDS ORDERED: Ergocalciferol 50,000 Intl Units Cap PO SCH (10:00)
--- NOTE | 2017-11-10 09:02 | CON ---
DATE: 11/03/2017 That is from Imani Delarosa MD to Armando Hollis MD. I was called for GI consultation by the Admitting Medical Team. The patient is seen and fully examined on 11/03/2017 in the presence of the admitting staff. Shorthand writing consultation sheet left in the chart. The entire chart is reviewed including but not limited to the most recent lab and radiology study results, current and the previous medication list, current and the previous medical events, allergy to medication list. Case discussed with the staff at length. This 72-year-old female was admitted to the hospital through the emergency room with a main complaint of severe abdominal pain associated with periods of persistent nausea, dyspepsia, dizziness, generalized weakness, and malaise, with shortness of breath without any actual chest pain, palpitation, significant shortness of breath. No reported active bleeding. PAST MEDICAL HISTORY: Including, but not limited to, 1. Hypertension with congestive heart failure before. 2. Diabetes mellitus, hyperlipidemia, hyperthyroidism. 3. Osteoarthritis. 4. Peptic ulcer disease. 5. Peripheral edema syndrome. 6. Status post cholecystectomy and appendectomy. SOCIAL HISTORY: No known history of cigarette smoking or alcohol intake. FAMILY HISTORY: Unknown. ALLERGIES TO MEDICATIONS: UNCLEAR. CURRENT MEDICATIONS: Medication list post admission is reviewed. After being admitted to the hospital, the patient was found to have low hematocrit of 30.6, increased blood glucose level 159, BUN 47, creatinine 1.6, sodium 124, potassium 3.3, CO2 content of 33, indicative of respiratory alkalosis. CAT scan of the abdomen and the pelvis was performed indicative of mildly dilated small bowel loops with mildly dilated common bile duct. PHYSICAL EXAMINATION: GENERAL: A 72-year-old female, appeared to be awake, alert, and oriented. VITAL SIGNS: Afebrile, with pulse of 70, respiratory rate 20 to 22, blood pressure of 128/58. HEENT: Showed dry, oral mucous membranes. Nonicteric sclerae. LYMPH NODES: No evidence of lymphadenopathy. LUNGS: Few scattered mild crepitations with decreased air entry at bases. HEART: Positive S1 and S2. ABDOMEN: Soft. Bowel sounds are present. No mass or organomegaly. No rebound tenderness or guarding. RECTAL EXAMINATION: The patient refused. EXTREMITIES: Without significant clubbing, cyanosis, but with lower extremities edematous changes. NEUROLOGIC: No reported new neurological deficits, sensory or motor. IMPRESSION: 1. Re-exacerbation of peptic ulcer disease, to rule out gastric versus duodenal ulcer. 2. To rule out some more retained biliary stone, less likely versus an early stage of acute pancreatitis. 3. To rule out gastric versus duodenal ulcer. 4. Electrolyte imbalance secondary to above with recurrent episodes of nausea and vomiting. 5. Multiple past medical history as mentioned above. SUGGESTIONS: 1. Agree with your plan. 2. Serum lipase, amylase level. 3. Proton pump inhibitors IV. 4. Reglan IV. 5. Ultrasound of the abdomen with attention to biliary tree and pancreas. 6. Endoscopic evaluation of the upper GI tract when the patient is more stable clinically. 7. Further recommendations to follow. Thank you for letting me participate in your patient's case management. Imani Delarosa MD
== END 2017-11-07 19:00 | disposition home or self-care (01) | DRG 392 ==
LOC: C.ER 11:54 → C.9E 16:37 → C.3T 17:57 → C.9E 18:07 → C.3T 19:21 → C.5S 11-03 12:13 → OBSVTOIN 11-03 17:51
PROVIDERS: ADMIT Internal Medicine Nephrology; ATTEND Internal Medicine Nephrology
PROC: 0DB68ZX Excision of Stomach, Via Natural or Artificial Opening Endoscopic, Diagnostic (ICD-10-PCS; principal; 2017-11-04 12:14)
DX: K52.9 Noninfective gastroenteritis and colitis, unspecified (principal); N17.9 Acute kidney failure, unspecified; I13.0 Hypertensive heart and chronic kidney disease with heart failure and stage 1 through stage 4 chronic kidney disease, or unspecified chronic kidney disease; E87.1 Hypo-osmolality and hyponatremia; D68.9 Coagulation defect, unspecified; K29.60 Other gastritis without bleeding; N18.9 Chronic kidney disease, unspecified; R04.0 Epistaxis; Z79.84 Long term (current) use of oral hypoglycemic drugs; Z90.49 Acquired absence of other specified parts of digestive tract; M48.02 Spinal stenosis, cervical region; K27.9 Peptic ulcer, site unspecified, unspecified as acute or chronic, without hemorrhage or perforation; I50.9 Heart failure, unspecified; H91.90 Unspecified hearing loss, unspecified ear; E87.6 Hypokalemia; E78.00 Pure hypercholesterolemia, unspecified; E55.9 Vitamin D deficiency, unspecified; E11.65 Type 2 diabetes mellitus with hyperglycemia; E11.22 Type 2 diabetes mellitus with diabetic chronic kidney disease; E03.9 Hypothyroidism, unspecified; D64.9 Anemia, unspecified; K44.9 Diaphragmatic hernia without obstruction or gangrene

== ENCOUNTER 2018-06-18 12:54 | Inpatient (IN) | payer MEDICARE ==
[2018-06-18 12:55] VITALS: BMI 30.6
--- NOTE | 2018-06-18 13:26 | C.PDOC ---
History Of Present Illness 72 y/o female presents to the ED for evaluation of worsening lower leg swelling. Son at bedside states patient's legs have been intermittently swollen for months. Additionally, patient was recently seen by per PMD and told she may need acute rehab. Patient has a PMHx of diabetes, neuropathy, arthritis, and chronic pain. She complains of worsening pain, especially in her knees, where she was receiving injections without relief (last 1 month ago). Otherwise patient denies any coughing, fever, chills, chest pain, SOB, headache, dizziness, or other associated complaints. Time Seen by Provider: 06/18/18 13:25 Chief Complaint (Nursing): Medical Clearance History Per: Patient History/Exam Limitations: no limitations Onset/Duration Of Symptoms: Days Current Symptoms Are (Timing): Worse Additional History Per: Family Past Medical History Reviewed: Historical Data, Nursing Documentation, Vital Signs Vital Signs: Last Vital Signs Temp 98.2 F 06/18/18 13:08 Pulse 80 06/18/18 13:08 Resp 18 06/18/18 13:08 BP 177/80 H 06/18/18 13:08 Pulse Ox 97 06/18/18 13:08 - Medical History PMH: Arthritis (neck/back), CHF, Diabetes, Gastritis, HTN, Hypercholesterolemia, Hyperthyroidism, Hypothyroidism, Peripheral Edema Denies: HIV, Chronic Kidney Disease Surgical History: Appendectomy, Cholecystectomy - [facility] Procedures EXCISION OF STOMACH, ENDO, DIAGN (11/03/17) EXCISION OF TOE NAIL, EXTERNAL APPROACH (09/10/16) EXERCISE TRMT MUSCULOSK UP BACK/UE W ASSIST EQUIP (09/10/16) FUSION 2-6 C JT W AUTOL SUB, ANT APPR A COL, OPEN (09/06/16) FUSION 2-6 C JT W INTBD FUS DEV, ANT APPR A COL, OPEN (09/06/16) GAIT TRAINING/AMBULAT TREATMENT USING ASSIST EQUIPMENT (09/10/16) GROOMING/PERSONAL HYGIENE TREATMENT USING ASSIST EQUIPMENT (09/10/16) HOME MANAGEMENT TREATMENT (08/26/16) ROM & JT MOBILITY TREATMENT OF MUSCULOSK LOW BACK/LE (08/26/16) THERAPEUTIC EXERCISE TREATMENT OF MUSCULOSK LOW BACK/LE (08/26/16) Family History: States: Unknown Family Hx - Social History Hx Tobacco Use: No Hx Alcohol Use: No Hx Substance Use: No - Immunization History Hx Tetanus Toxoid Vaccination: No Hx Influenza Vaccination: No Hx Pneumococcal Vaccination: Yes Review Of Systems Constitutional: Negative for: Fever, Chills Eyes: Negative for: Vision Change Cardiovascular: Negative for: Chest Pain Respiratory: Negative for: Cough, Shortness of Breath Gastrointestinal: Negative for: Vomiting, Diarrhea Musculoskeletal: Positive for: Neck Pain, Arm Pain, Back Pain, Hand Pain, Leg Pain Skin: Negative for: Rash Neurological: Negative for: Numbness, Headache, Dizziness Physical Exam - Physical Exam Appears: Non-toxic, No Acute Distress Skin: Warm, Dry Head: Normacephalic Eye(s): bilateral: Normal Inspection, PERRL, EOMI Oral Mucosa: Moist Neck: Trachea Midline, Supple, Other (No meningeal signs- negative kernig's and brudzinskis) Chest: Symmetrical Cardiovascular: Rhythm Regular, No Friction Rub Respiratory: No Rales, No Rhonchi, No Wheezing Gastrointestinal/Abdominal: Soft, No Tenderness, No Distention Extremity: No Tenderness (no focal tenderness to knees), Pedal Edema (bilateral), Capillary Refill (less than 2 sec), Other (n/v intact in all extremities ) Extremity: Bilateral: Atraumatic, Normal Color And Temperature (no erythema or skin changes) Pulses: Left Dorsalis Pedis: Normal, Right Dorsalis Pedis: Normal Neurological/Psych: Oriented x3, Normal Cognition, Normal Cranial Nerves, Normal Motor, Normal Sensation ED Course And Treatment - Laboratory Results Result Diagrams: 06/18/18 14:10 06/18/18 14:10 O2 Sat by Pulse Oximetry: 97 (RA) Pulse Ox Interpretation: Normal Medical Decision Making Medical Decision Makin72 y/o F with PMHx of arthritis, chronic pain, diabetes, neuropathy, p/w worsening knee pain and leg swelling. Arrives with note from Dr. Chen to eval for chf, chronic pain, likely admission for rehab. No erythema or swelling to joints. Plan: --EKG --Blood work 1500 Appreciate consult w/ Dr. Chen: No indication for CHF workup, sent in for rehab, to admit to his service. No LE edema, orthopnea, or PND. Fully N/v intact in b/l LE. admitted in NAD EK, NSR, no stemi Disposition - Disposition Disposition: HOSPITALIZED Disposition Time: 15:02 Condition: GOOD - Clinical Impression Clinical Impression: Chronic pain - Scribe Statement The provider has reviewed the documentation as recorded by the Rosario Alfaro Provider Attestation: All medical record entries made by the Rosario were at my direction and pers onally dictated by me. I have reviewed the chart and agree that the record accurately reflects my personal performance of the history, physical exam, medical decision making, and the department course for this patient. I have also personally directed, reviewed, and agree with the discharge instructions and disposition.
[2018-06-18 14:13] LABS: BASO % 0.5 % (0.0-2.0); EOS # 0.2 K/uL (0.0-0.7); EOS % 2.8 % (0.0-4.0); HEMOGLOBIN 10.6 g/dL (11.0-16.0); LYMPH # 1.3 K/uL (1.0-4.3); LYMPH % 19.9 % (20.0-40.0); MEAN CELL VOLUME 87.1 fL (81.0-99.0); MEAN CORPUSCULAR HEMOGLOBIN 29.7 pg (27.0-31.0); MEAN CORPUSCULAR HGB CONC 34.1 g/dL (33.0-37.0); MEAN PLATELET VOLUME 7.4 fL (7.2-11.7); MONO # 0.6 K/uL (0.0-0.8); MONO % 8.6 % (0.0-10.0); NEUT # 4.5 K/uL (1.8-7.0); NEUT % 68.2 % (50.0-75.0); NRBC % 0.1 % (0.0-2.0); RBC 3.57 Mil/uL (3.80-5.20); RED CELL DISTRIBUTION WIDTH 13.9 % (11.5-14.5); WHITE BLOOD COUNT 6.6 K/uL (4.8-10.8)
[2018-06-18 14:27] LABS: ALB/GLOB RATIO 1.5 (1.0-2.1); ALBUMIN 4.6 g/dL (3.5-5.0); CALCIUM 9.8 mg/dl (8.6-10.4)
[2018-06-18 14:34] LABS: B-TYPE NATRIURETIC PEPTIDE 61.6 pg/mL (0-900)
[2018-06-18 14:43] VITALS: RESP 20
--- NOTE | 2018-06-18 20:59 | CP.PCM.HP ---
History of Present Illness - History of Present Illness History of Present Illness: Chief complaint: frequent falls and leg swelling with pain HPI: 72-year-old female with recent hospitalization at [facility]. Patient had a hospitalized with multiple times with the diagnosis of renal insufficiency, chronic leg swelling, and diastolic heart failure. Patient has a history of chronic diabetes, controlled well. Hypertension fairly controlled. History of chronic renal failure. Hypothyroidism. Past medical history: Hypertension Hypertension hypothyroidism hypercholesterolemia renal insufficiency. Leg swelling leg edema Surgical history: Cervical spinal surgery in 2006 Bilateral cataract Appendectomy Cholecystectomy Thyroidectomy Pelvic tumor removal . Family history: Father mother of natural cause and also had heart disease One sister had a heart surgery At times he uses cane for walking and as well as walker 2 kids Social history: Non-smoker nonalcoholic Drinks coffee daily Currently living by herself. She is able to manage her activities daily. Current medications reviewed from the chart. Levothyroxine 50 mcg daily Carvedilol 3.125 twice a day Protonix 40 daily. Amaryl 2 mg daily Gabapentin 600 mg daily Folic acid 1 mg daily Diclofenac 75 mg daily Vitamin D 50,000 units weekly. Januvia 50 daily Lasix 80 mg twice a day Potassium chloride 20 mg. Crestor 40 mg There is also torsemide, metolazone and Spironolactone noted in the chart Patient is not clear what is she taking at this time Review of system: Sometimes headache Right ear pain at times noted on hard of hearing. History of cataract bilaterally. No chest pain or shortness of breath denies any GI symptoms bilateral knee pain noted.Leg swelling chronically noted On examination: Blood pressure vital signs stable.Elevated weight noted Chest good air entry Regular heart sound Abdomen nontender. Patient has a moderate to severe bilateral pedal edema involving both lower extremities below the knee joint Labs:October 2017 CBC WBC 6.8 hemoglobin 10.8 platelet 244 Chemistry BUN 19, creatinine 1.1 otherwise rest of the vitals negative Echocardiogram for September 2017 LVH noted systolic function normal right ve ntricular function rosa EKG normal sinus rhythm no ST-T changes during that time. Assessment/recommendation: 72-year-old female elderly living by herself Hypertension chronically noted, c ontrolled well now History of hypercholesterolemia patient is on multiple cholesterol medication, frequent falls noted worsening weakness worsening rt knee pain and swelling degenarative oa and possible infection cant be rulled out PT pain ortho eval Present on Admission - Present on Admission Any Indicators Present on Admission: No History of DVT/PE: No History of Uncontrolled Diabetes: No Urinary Catheter: No Decubitus Ulcer Present: No Past Patient History - Infectious Disease Hx of Infectious Diseases: None - Past Medical History & Family History Past Medical History?: Yes - Past Social History Smoking Status: Former Smoker - CARDIAC Hx Congestive Heart Failure: Yes Hx Hypercholesterolemia: Yes Hx Hypertension: Yes Hx Peripheral Edema: Yes - PULMONARY Hx Respiratory Disorders: No - NEUROLOGICAL Hx Neurological Disorder: No - HEENT Hx HEENT Problems: Yes Hx Deafness: Yes (right ear) - RENAL Hx Chronic Kidney Disease: No - ENDOCRINE/METABOLIC Hx Hyperthyroidism: Yes Hx Hypothyroidism: Yes - HEMATOLOGICAL/ONCOLOGICAL Hx Human Immunodeficiency Virus (HIV): No - INTEGUMENTARY Hx Dermatological Problems: No - MUSCULOSKELETAL/RHEUMATOLOGICAL Hx Arthritis: Yes (neck/back) Hx Falls: Yes (long time ago) - GASTROINTESTINAL Hx Gastritis: Yes - GENITOURINARY/GYNECOLOGICAL Hx Genitourinary Disorders: No - PSYCHIATRIC Hx Substance Use: No - SURGICAL HISTORY Hx Appendectomy: Yes Hx Cholecystectomy: Yes - ANESTHESIA Hx Anesthesia: Yes Hx Anesthesia Reactions: Yes (too sleepy) Hx Malignant Hyperthermia: No Has any member of the family had a problem w/ anesthesia?: No Meds Allergies/Adverse Reactions: Allergies Allergy/AdvReac Type Severity Reaction Status Date / Time No Known Allergies Allergy Verified 06/18/18 13:10 Results - Vital Signs Recent Vital Signs: Last Vital Signs Temp 97.7 F 06/18/18 19:20 Pulse 61 06/18/18 19:20 Resp 20 06/18/18 19:20 BP 153/77 H 06/18/18 19:20 Pulse Ox 99 06/18/18 19:20 - Labs Result Diagrams: 06/18/18 14:10 06/18/18 14:10 Labs: Laboratory Results - last 24 hr 06/18/18 06/18/18 14:10 14:10 WBC 6.6 RBC 3.57 L Hgb 10.6 L Hct 31.1 L MCV 87.1 MCH 29.7 MCHC 34.1 RDW 13.9 Plt Count 269 MPV 7.4 Neut % (Auto) 68.2 Lymph % (Auto) 19.9 L [place] % (Auto) 8.6 Eos % (Auto) 2.8 Baso % (Auto) 0.5 Neut # (Auto) 4.5 Lymph # (Auto) 1.3 [place] # (Auto) 0.6 Eos # (Auto) 0.2 Baso # (Auto) 0.0 Sodium 133 Potassium 4.6 Chloride 94 L Carbon Dioxide 27 Anion Gap 16 BUN 32 H Creatinine 1.6 H Est GFR ( Amer) 38 Est GFR (Non-Af Amer) 32 Random Glucose 128 H D Calcium 9.8 Magnesium 2.0 Total Bilirubin 0.6 AST 32 ALT 27 Alkaline Phosphatase 115 NT-Pro-B Natriuret Pep 61.6 Total Protein 7.8 Albumin 4.6 Globulin 3.1 Albumin/Globulin Ratio 1.5
[2018-06-19] MEDS: Pantoprazole 40 mg EC Tab PO SCH (09:18)
[2018-06-19] MEDS ORDERED: Levothyroxine 50 MCG TAB PO SCH (10:00)
--- NOTE | 2018-06-19 10:02 | CP.PCM.PN ---
Subjective - Date & Time of Evaluation Date of Evaluation: 06/19/18 Time of Evaluation: 10:01 - Subjective Subjective: Patient currently sitting up comfortably. She is not in any distress otherwise. Left shoulder pain noted. Right knee swelling and pain present Patient had a DVT study which was negative. On examination: Vital signs stable otherwise. Chest good air entry regular [place] noted, 1+ pedal edema bilaterally noted Labs reviewed Assessment examination: 72-year-old female with a history of uncontrolled hypertension. Hypertensive heart disease. Pedal edema Venous insufficiency . And will follow the patient Bilateral osteoarthritis of the knee. Recurrent fall. Weakness. Ongoing chest pain. Cardiology evaluation. CAT scan of the right knee recommended. Orthopedic consultation Objective - Vital Signs/Intake and Output Vital Signs (last 24 hours): Temp Pulse Resp BP Pulse Ox 99.6 F 63 20 135/75 97 06/19/18 08:35 06/19/18 08:35 06/19/18 08:35 06/19/18 09:13 06/19/18 08:56 Intake and Output: 06/19/18 06/19/18 06:59 18:59 Intake Total 500 Balance 500 - Medications Medications: Current Medications Furosemide (Lasix) 40 mg PO DAILY [facility] Last Admin: 06/19/18 09:13 Dose: 40 mg Gabapentin (Neurontin) 100 mg PO DAILY [facility] Last Admin: 06/19/18 09:18 Dose: 100 mg Glimepiride (Amaryl) 2 mg PO DAILY [facility] Last Admin: 06/19/18 09:17 Dose: 2 mg Heparin Sodium (Porcine) (Heparin) 5,000 units SC Q8 [facility] Last Admin: 06/19/18 06:10 Dose: 5,000 units Levothyroxine Sodium (Synthroid) 50 mcg PO DAILY [facility] Last Admin: 06/19/18 09:17 Dose: 50 mcg Pantoprazole Sodium (Protonix Ec Tab) 40 mg PO DAILY [facility] Last Admin: 06/19/18 09:18 Dose: 40 mg Rosuvastatin Calcium (Crestor) 20 mg PO DAILY [facility] Last Admin: 06/19/18 09:17 Dose: 20 mg Sitagliptin Phosphate (Januvia) 100 mg PO DAILY [facility] Last Admin: 06/19/18 09:17 Dose: 100 mg Tramadol HCl (Ultram) 50 mg PO BID [facility] Last Admin: 06/19/18 09:18 Dose: 50 mg - Labs Labs: 06/18/18 14:10 06/18/18 14:10
--- NOTE | 2018-06-19 11:24 | CP.PCM.CON ---
History of Present Illness - History of Present Illness History of Present Illness: Orthopedic consultation Dr. Walters 72F complains of R>L knee pain x approx 3 months. She says her right knee is worse especially when walking. She says she had an injection by Dr. Chen approx 1 month ago into right knee and it helped. She says her legs feel heavy. She denies any recent trauma or falls. She denies CP/SOB/dizzines s/numbness/tingling. She says she went to [facility] before and had PT and really liked it there. She also complains of left shoulder pain. Review of Systems - Review of Systems All systems: reviewed and no additional remarkable complaints except - Constitutional Additional comments: no fever/chills - Cardiovascular Cardiovascular: As Per HPI - Respiratory Respiratory: As Per HPI - Gastrointestinal Additional comments: no n/v - Musculoskeletal Musculoskeletal: As Per HPI - Integumentary Additional comments: no redness - Neurological Neurological: As Per HPI - Hematologic/Lymphatic Hematologic: absent: As Per HPI, Easy Bleeding, Easy Bruising, Lymphadenopathy, Other Past Patient History - Infectious Disease Hx of Infectious Diseases: None - Past Medical History & Family History Past Medical History?: Yes Past Family History: Reviewed and not pertinent - Past Social History Smoking Status: Former Smoker - CARDIAC Hx Congestive Heart Failure: Yes Hx Hypercholesterolemia: Yes Hx Hypertension: Yes Hx Peripheral Edema: Yes - PULMONARY Hx Respiratory Disorders: No - NEUROLOGICAL Hx Neurological Disorder: No - HEENT Hx HEENT Problems: Yes Hx Deafness: Yes (right ear) - RENAL Hx Chronic Kidney Disease: No - ENDOCRINE/METABOLIC Hx Hyperthyroidism: Yes Hx Hypothyroidism: Yes - HEMATOLOGICAL/ONCOLOGICAL Hx Human Immunodeficiency Virus (HIV): No - INTEGUMENTARY Hx Dermatological Problems: No - MUSCULOSKELETAL/RHEUMATOLOGICAL Hx Arthritis: Yes (neck/back/knees) - GASTROINTESTINAL Hx Gastritis: Yes - GENITOURINARY/GYNECOLOGICAL Hx Genitourinary Disorders: No - PSYCHIATRIC Hx Substance Use: No - SURGICAL HISTORY Hx Appendectomy: Yes Hx Cholecystectomy: Yes - ANESTHESIA Hx Anesthesia: Yes Hx Anesthesia Reactions: Yes (too sleepy) Hx Malignant Hyperthermia: No Has any member of the family had a problem w/ anesthesia?: No Meds Allergies/Adverse Reactions: Allergies Allergy/AdvReac Type Severity Reaction Status Date / Time No Known Allergies Allergy Verified 06/18/18 13:10 - Medications Medications: Current Medications Furosemide (Lasix) 40 mg PO DAILY [facility] Last Admin: 06/19/18 09:13 Dose: 40 mg Gabapentin (Neurontin) 100 mg PO DAILY [facility] Last Admin: 06/19/18 09:18 Dose: 100 mg Glimepiride (Amaryl) 2 mg PO DAILY [facility] Last Admin: 06/19/18 09:17 Dose: 2 mg Heparin Sodium (Porcine) (Heparin) 5,000 units SC Q8 [facility] Last Admin: 06/19/18 06:10 Dose: 5,000 units Levothyroxine Sodium (Synthroid) 50 mcg PO DAILY [facility] Last Admin: 06/19/18 09:17 Dose: 50 mcg Pantoprazole Sodium (Protonix Ec Tab) 40 mg PO DAILY [facility] Last Admin: 06/19/18 09:18 Dose: 40 mg Rosuvastatin Calcium (Crestor) 20 mg PO DAILY [facility] Last Admin: 06/19/18 09:17 Dose: 20 mg Sitagliptin Phosphate (Januvia) 100 mg PO DAILY [facility] Last Admin: 06/19/18 09:17 Dose: 100 mg Tramadol HCl (Ultram) 50 mg PO BID [facility] Last Admin: 06/19/18 09:18 Dose: 50 mg Physical Exam - Constitutional Appears: Well, No Acute Distress Additional comments: patient seen walking around room, encouraged to use walker by PT she is able to walk and transfer independently, but is unsteady no obvious painful distress with walking, but does favor right knee and limp - Head Exam Head Exam: ATRAUMATIC - Neck Exam Neck exam: Positive for: Full Rom, Normal Inspection - Extremities Exam Additional comments: Right knee: no laxity to varus, valgus, ant post drawer, hari B calves soft NT homans, but noted sweling to legs, mild sensation intact no effusion noted on left knee, full ROM, no tender not warm - Expanded Upper Extremities Exam Left Shoulder exam: tenderness over AC joint, normal inspection (mildly limited ROM due to pain) Neuro motor exam: finger 2-5 abduction intact, thumb abduction, thumb IP flexion intact, thumb opposition intact, wrist extension intact Neurosensory exam: median nerve intact, radial nerve intact, ulnar nerve intact Vascular exam: radial pulse - Expanded Lower Extremities Exam Right Knee exam: effusion (moderate effusion, no erythema, mild warmth consistent with arthritis, non tender), full ROM (5-95 then complains of some tightness in back of right knee) Lower Leg Exam: swelling (mild peripheral swelling) Ankle exam: FULL ROM, NORMAL INSPECTION - Neurological Exam Neurological exam: Alert, Oriented x3 - Psychiatric Exam Psychiatric exam: Normal Affect, Normal Mood - Skin Skin Exam: Dry, Intact, Normal Color, Warm Results - Vital Signs Recent Vital Signs: Last Vital Signs Temp 99.6 F 06/19/18 08:35 Pulse 63 06/19/18 08:35 Resp 20 06/19/18 08:35 BP 135/75 06/19/18 09:13 Pulse Ox 97 06/19/18 08:56 - Labs Result Diagrams: 06/18/18 14:10 06/18/18 14:10 Labs: Laboratory Results - last 24 hr 06/18/18 06/18/18 06/18/18 14:10 14:10 21:41 WBC 6.6 RBC 3.57 L Hgb 10.6 L Hct 31.1 L MCV 87.1 MCH 29.7 MCHC 34.1 RDW 13.9 Plt Count 269 MPV 7.4 Neut % (Auto) 68.2 Lymph % (Auto) 19.9 L [place] % (Auto) 8.6 Eos % (Auto) 2.8 Baso % (Auto) 0.5 Neut # (Auto) 4.5 Lymph # (Auto) 1.3 [place] # (Auto) 0.6 Eos # (Auto) 0.2 Baso # (Auto) 0.0 Sodium 133 Potassium 4.6 Chloride 94 L Carbon Dioxide 27 Anion Gap 16 BUN 32 H Creatinine 1.6 H Est GFR ( Amer) 38 Est GFR (Non-Af Amer) 32 POC Glucose (mg/dL) 243 H Random Glucose 128 H D Calcium 9.8 Magnesium 2.0 Total Bilirubin 0.6 AST 32 ALT 27 Alkaline Phosphatase 115 NT-Pro-B Natriuret Pep 61.6 Total Protein 7.8 Albumin 4.6 Globulin 3.1 Albumin/Globulin Ratio 1.5 06/19/18 07:13 WBC RBC Hgb Hct MCV MCH MCHC RDW Plt Count MPV Neut % (Auto) Lymph % (Auto) [place] % (Auto) Eos % (Auto) Baso % (Auto) Neut # (Auto) Lymph # (Auto) [place] # (Auto) Eos # (Auto) Baso # (Auto) Sodium Potassium Chloride Carbon Dioxide Anion Gap BUN Creatinine Est GFR ( Amer) Est GFR (Non-Af Amer) POC Glucose (mg/dL) 164 H Random Glucose Calcium Magnesium Total Bilirubin AST ALT Alkaline Phosphatase NT-Pro-B Natriuret Pep Total Protein Albumin Globulin Albumin/Globulin Ratio Assessment & Plan (1) Primary osteoarthritis of right knee Assessment and Plan: clinically this is consistent with severe tricompartmental knee DJD, afeb, no leukocytosis, no erythema, mild pain clinically, minimal pain with ROM not suggestive of infection patient had injection 1 month ago, so not indicated for another injection at this time plain xrays ordered B knees will f/u official CT scan results prelim dopplers negative for DVT recommend PT/OT for walker ambulation training advised patient that she has severe right knee arthritis and is indicated for right total knee replacement. Patient verbalized understanding and states that she does not want any surgery on her knee. She says she wants more physical t herapy because that helps her. Patient can follow up as outpatient [phone] d/w Dr. Walters, agrees with above Status: Acute (2) Arthritis of left acromioclavicular joint Assessment and Plan: no acute changes on xrays recommend PT/OT Status: Acute (3) Impingement syndrome, shoulder, left Status: Acute
--- NOTE | 2018-06-19 12:58 | CT ---
Date of service: 06/19/2018 PROCEDURE: CT scan of right joint without intravenous contrast. PROCEDURE: INDICATION: Atraumatic swelling TECHNIQUE: Multiple axial images were obtained with slice thickness of 2.5 mm. Coronal and sagittal reformatted images were obtained. Iterative reconstruction was used. Radiation dose: Total exam DLP = 334.99 mGy-cm. PROCEDURE: This CT exam was performed using one or more of the following dose reduction techniques: Automated exposure control, adjustment of the mA and/or kV according to patient size, and/or use of iterative reconstruction technique. COMPARISON: None. FINDINGS: There is diffuse bone demineralization. There is no acute displaced fracture or bone destruction. Bone alignment is normal. There is severe tricompartmental degenerative osteoarthrosis with reduced joint spaces and near complete loss of medial compartment joint space, large marginal osteophytes and tibial spiking. There is a dorsal patellar enthesophyte. There is a small suprapatellar joint effusion and a 3.6 x 2.3 cm popliteal cyst. The periarticular muscles and soft tissues are normal. There is mild prepatellar subcutaneous edema. IMPRESSION: No acute displaced fracture or dislocation. Severe tricompartmental degenerative osteoarthrosis, worse in the medial compartment. Small suprapatellar joint effusion. 3.6 x 2.3 cm popliteal cyst.
--- NOTE | 2018-06-19 14:50 | RAD ---
Date of service: 06/19/2018 PROCEDURE: Radiographs of the left shoulder HISTORY: fall COMPARISON: No prior. FINDINGS: BONES: Bone alignment and mineralization are normal. There is no acute displaced fracture or bone destruction. JOINTS: There is moderate degenerative osteoarthrosis in the acromioclavicular joint. The glenohumeral joint is normal SOFT TISSUES: Normal. OTHER FINDINGS: None. IMPRESSION: No acute displaced fracture or dislocation.
--- NOTE | 2018-06-19 14:52 | VASCLAB ---
Date of service: 06/18/2018 PROCEDURE: Lower Extremity Venous Duplex Exam. HISTORY: b/l le swelling PRIORS: None. TECHNIQUE: Bilateral common femoral, femoral, popliteal and posterior tibial, peroneal and great saphenous veins were evaluated. Flow was assessed with color Doppler, compressibility, assessment of phasic flow and augmentation response. Report prepared by Manish Gotti, BS, RVT FINDINGS: RIGHT: 1. Common Femoral Vein: 1.1. Compressibility - Fully compressible: Thrombus - None : Flow - Phasic: Augmentation -Normal: Reflux - None. 2. Femoral Vein: 2.1. Compressibility - Fully compressible: Thrombus - None : Flow - Phasic: Augmentation -Normal: Reflux - None. 3. Popliteal Vein: 3.1. Compressibility - Fully compressible: Thrombus - None : Flow - Phasic: Augmentation -Normal: Reflux - None. 4. Posterior Tibial Vein: 4.1. Compressibility - Fully compressible: Thrombus - None: Flow - Phasic: Augmentation -Normal: Reflux - None. 5. Peroneal Vein: 5.1. Compressibility - Fully compressible: Thrombus - None: Flow - Phasic: Augmentation -Normal: Reflux - None. 6. Great Saphenous Vein: 6.1. Compressibility - Fully compressible: Thrombus - None: Flow - Phasic: Augmentation - Normal: Reflux - None. LEFT: 1. Common Femoral Vein: 1.1. Compressibility - Fully compressible: Thrombus - None: Flow - Phasic: Augmentation -Normal: Reflux - None. 2. Femoral Vein: 2.1. Compressibility - Fully compressible: Thrombus - None: Flow - Phasic: Augmentation -Normal: Reflux - None. 3. Popliteal Vein: 3.1. Compressibility - Fully compressible: Thrombus - None : Flow - Phasic: Augmentation -Normal: Reflux - None. 4. Posterior Tibial Vein: 4.1. Compressibility - Fully compressible: Thrombus - None: Flow - Phasic: Augmentation -Normal: Reflux - None. 5. Peroneal Vein: 5.1. Compressibility - Fully compressible: Thrombus - None: Flow - Phasic: Augmentation -Normal: Reflux - None. 6. Great Saphenous Vein: 6.1. Compressibility - Fully compressible: Thrombus - None: Flow - Phasic: Augmentation - Normal: Reflux - None. OTHER FINDINGS: Right: None significant. Left: None significant. IMPRESSION: Right: No evidence of deep or superficial vein thrombosis of the right lower extremity. Normal valve function noted of the right side. Left: No evidence of deep or superficial vein thrombosis of the left lower extremity. Normal valve function noted of the left side.
--- NOTE | 2018-06-19 15:00 | RAD ---
Date of service: 06/19/2018 PROCEDURE: Bilateral Knee Radiographs. HISTORY: knee pain COMPARISON: None. FINDINGS: BONES: There is diffuse bone demineralization. There is no acute displaced fracture or bone destruction. Bone alignment is normal. JOINTS: There is m severe tricompartmental degenerative osteoarthrosis with reduced joint spaces, marginal osteophytes and tibial spiking, worse in the medial compartment. SOFT TISSUES: Right Knee: Normal. Left Knee: Normal. JOINT EFFUSION: There are small suprapatellar joint effusions OTHER FINDINGS: None. IMPRESSION: No acute displaced fracture or dislocation. Severe tricompartmental degenerative osteoarthrosis, worse in the medial compartments. Small suprapatellar joint effusions.
[2018-06-20 07:35] LABS: BASO % 0.7 % (0.0-2.0); EOS # 0.3 K/uL (0.0-0.7); EOS % 5.5 % (0.0-4.0); HEMOGLOBIN 10.1 g/dL (11.0-16.0); LYMPH # 1.9 K/uL (1.0-4.3); LYMPH % 30.8 % (20.0-40.0); MEAN CELL VOLUME 86.5 fL (81.0-99.0); MEAN CORPUSCULAR HEMOGLOBIN 30.6 pg (27.0-31.0); MEAN CORPUSCULAR HGB CONC 35.4 g/dL (33.0-37.0); MONO # 0.6 K/uL (0.0-0.8); MONO % 9.1 % (0.0-10.0); NEUT # 3.3 K/uL (1.8-7.0); NEUT % 53.9 % (50.0-75.0); RBC 3.29 Mil/uL (3.80-5.20); RED CELL DISTRIBUTION WIDTH 13.5 % (11.5-14.5); WHITE BLOOD COUNT 6.2 K/uL (4.8-10.8)
--- NOTE | 2018-06-20 08:43 | CP.PCM.CON ---
History of Present Illness - History of Present Illness History of Present Illness: CC: Pedal edema 72F complains of R>L knee pain x approx 3 months. She says her right knee is worse especially when walking. She says she had an injection by Dr. Chen approx 1 month ago into right knee and it helped. She says her legs feel heavy. She denies any recent trauma or falls. She denies CP/SOB/dizziness/numbness/tingling. She says she went to [facility] before and had PT and really liked it there. She also complains of left shoulder pain. Review of Systems - Review of Systems All systems: reviewed and no additional remarkable complaints except - Constitutional Additional comments: no fever/chills - Cardiovascular Cardiovascular: As Per HPI - Respiratory Respiratory: As Per HPI - Gastrointestinal Additional comments: no n/v - Musculoskeletal Musculoskeletal: As Per HPI - Integumentary Additional comments: no redness - Neurological Neurological: As Per HPI - Hematologic/Lymphatic Hematologic: absent: As Per HPI, Easy Bleeding, Easy Bruising, Lymphadenopathy, Other Physical Exam - Constitutional Appears: Well, No Acute Distress Additional comments: patient seen walking around room, encouraged to use walker by PT she is able to walk and transfer independently, but is unsteady no obvious painful distress with walking, but does favor right knee and limp - Head Exam Head Exam: ATRAUMATIC - Neck Exam Neck exam: Positive for: Full Rom, Normal Inspection - Extremities Exam Additional comments: Right knee: no laxity to varus, valgus, ant post drawer, hari B calves soft NT homans, but noted sweling to legs, mild sensation intact no effusion noted on left knee, full ROM, no tender not warm - Expanded Upper Extremities Exam Left Shoulder exam: tenderness over AC joint, normal inspection (mildly limited ROM due to pain) Neuro motor exam: finger 2-5 abduction intact, thumb abduction, thumb IP flexion intact, thumb opposition intact, wrist extension intact Neurosensory exam: median nerve intact, radial nerve intact, ulnar nerve intact Vascular exam: radial pulse - Expanded Lower Extremities Exam Right Knee exam: effusion (moderate effusion, no erythema, mild warmth consistent with arthritis, non tender), full ROM (5-95 then complains of some tightness in back of right knee) Lower Leg Exam: swelling (mild peripheral swelling) Ankle exam: FULL ROM, NORMAL INSPECTION - Neurological Exam Neurological exam: Alert, Oriented x3 - Psychiatric Exam Psychiatric exam: Normal Affect, Normal Mood - Skin Skin Exam: Dry, Intact, Normal Color, Warm Assessment & Plan (1) Primary osteoarthritis of right knee Assessment and Plan: clinically this is consistent with severe tricompartmental knee DJD, afeb, no leukocytosis, no erythema, mild pain clinically, minimal pain with ROM not suggestive of infection patient had injection 1 month ago, so not indicated for another injection at this time plain xrays ordered B knees will f/u official CT scan results prelim dopplers negative for DVT recommend PT/OT for walker ambulation training advised patient that she has severe right knee arthritis and is indicated for right total knee replacement. Patient verbalized understanding and states that she does not want any surgery on her knee. She says she wants more physical therapy because that helps her. Patient can follow up as outpatient [phone] d/w Dr. Walters, agrees with above Status: Acute (2) Arthritis of left acromioclavicular joint Assessment and Plan: no acute changes on xrays recommend PT/OT Status: Acute (3) Impingement syndrome, shoulder, left Status: Acute Pedal edema r/o CHF Check ECHO Friday Past Patient History - Infectious Disease Hx of Infectious Diseases: None - Past Medical History & Family History Past Medical History?: Yes Past Family History: Reviewed and not pertinent - Past Social History Smoking Status: Former Smoker - CARDIAC Hx Congestive Heart Failure: Yes Hx Hypercholesterolemia: Yes Hx Hypertension: Yes - PULMONARY Hx Respiratory Disorders: No - NEUROLOGICAL Hx Neurological Disorder: No - HEENT Hx HEENT Problems: Yes Hx Deafness: Yes (right ear) - RENAL Hx Chronic Kidney Disease: No - ENDOCRINE/METABOLIC Hx Diabetes Mellitus Type 2: Yes Hx Hypothyroidism: Yes - HEMATOLOGICAL/ONCOLOGICAL Hx Human Immunodeficiency Virus (HIV): No - INTEGUMENTARY Hx Dermatological Problems: No - MUSCULOSKELETAL/RHEUMATOLOGICAL Hx Arthritis: Yes (neck/back/knees) - GASTROINTESTINAL Hx Gastritis: Yes - GENITOURINARY/GYNECOLOGICAL Hx Genitourinary Disorders: No - PSYCHIATRIC Hx Substance Use: No - SURGICAL HISTORY Hx Appendectomy: Yes Hx Cholecystectomy: Yes - ANESTHESIA Hx Anesthesia: Yes Hx Anesthesia Reactions: Yes (too sleepy) Hx Malignant Hyperthermia: No Has any member of the family had a problem w/ anesthesia?: No Meds Allergies/Adverse Reactions: Allergies Allergy/AdvReac Type Severity Reaction Status Date / Time No Known Allergies Allergy Verified 06/18/18 13:10 - Medications Medications: Current Medications Furosemide (Lasix) 40 mg PO DAILY [facility] Last Admin: 06/19/18 09:13 Dose: 40 mg Gabapentin (Neurontin) 100 mg PO DAILY [facility] Last Admin: 06/19/18 09:18 Dose: 100 mg Glimepiride (Amaryl) 2 mg PO DAILY [facility] Last Admin: 06/19/18 09:17 Dose: 2 mg Heparin Sodium (Porcine) (Heparin) 5,000 units SC Q8 [facility] Last Admin: 06/20/18 05:59 Dose: 5,000 units Influenza Virus Vaccine (Flucelvax Quad [id number] Syr) 60 mcg IM .ONCE ONE Stop: 06/20/18 10:01 Levothyroxine Sodium (Synthroid) 50 mcg PO DAILY@0630 [facility] Pantoprazole Sodium (Protonix Ec Tab) 40 mg PO DAILY [facility] Last Admin: 06/19/18 09:18 Dose: 40 mg Rosuvastatin Calcium (Crestor) 10 mg PO HS [facility] Sitagliptin Phosphate (Januvia) 50 mg PO DAILY [facility] Tramadol HCl (Ultram) 50 mg PO BID [facility] Last Admin: 06/19/18 18:30 Dose: Not Given Results - Vital Signs Recent Vital Signs: Last Vital Signs Temp 98.0 F 06/20/18 07:38 Pulse 60 06/20/18 07:38 Resp 20 06/20/18 07:38 BP 143/78 06/20/18 07:38 Pulse Ox 96 06/20/18 07:38 - Labs Result Diagrams: 06/20/18 07:19 06/20/18 07:19 Labs: Laboratory Results - last 24 hr 06/19/18 06/19/18 06/19/18 11:19 16:18 21:16 WBC RBC Hgb Hct MCV MCH MCHC RDW Plt Count MPV Neut % (Auto) Lymph % (Auto) Clark % (Auto) Eos % (Auto) Baso % (Auto) Neut # (Auto) Lymph # (Auto) [place] # (Auto) Eos # (Auto) Baso # (Auto) POC Glucose (mg/dL) 138 H 226 H 185 H 06/20/18 06/20/18 07:08 07:19 WBC 6.2 RBC 3.29 L Hgb 10.1 L Hct 28.5 L MCV 86.5 MCH 30.6 MCHC 35.4 RDW 13.5 Plt Count 252 MPV 8.0 Neut % (Auto) 53.9 Lymph % (Auto) 30.8 [place] % (Auto) 9.1 Eos % (Auto) 5.5 H Baso % (Auto) 0.7 Neut # (Auto) 3.3 Lymph # (Auto) 1.9 Clark # (Auto) 0.6 Eos # (Auto) 0.3 Baso # (Auto) 0.0 POC Glucose (mg/dL) 148 H
[2018-06-20 09:12] LABS: ALB/GLOB RATIO 1.4 (1.0-2.1); ALBUMIN 4.1 g/dL (3.5-5.0); CALCIUM 9.8 mg/dl (8.6-10.4)
[2018-06-20] MEDS ORDERED: Influenza Vaccine 60 MCG/0.5 ML SYR (3 yr & up) IM ONE (10:00)
[2018-06-20] MEDS ORDERED: Influenza Vaccine 60 mcg/0.5 mL SYR (4YR UP) IM ONE (10:00)
[2018-06-20] MEDS: Pantoprazole 40 mg EC Tab PO SCH (10:05)
--- NOTE | 2018-06-20 23:55 | CP.PCM.PN ---
Subjective - Date & Time of Evaluation Date of Evaluation: 06/20/18 Time of Evaluation: 23:55 - Subjective Subjective: Patient complaining of more pain bilaterally in the knee. Having difficult time in getting up and walking. She is feeling slightly better otherwise. Tolerating the Ultram. She denies any chest pain. No shortness of breath noted. Appreciate orthopedic evaluation and input. On examination: Vital signs stable. Blood pressure is controlled much better. Chest good air entry Regular Hs Nontender abdomen Extremities 1+ pedal edema bilaterally present CAT scan of the knee is showing evidence of severe osteoarthritis with sclerotic changes Assessment and plan: 72-year-old female with a history of diabetes, advanced osteoarthritis involving the bilateral knee more on the right side. Also hypertension poorly controlled. Associate with bilateral pedal edema Patient had a frequent falls in the past. In my opinion patient is a candidate for subacute rehab, but if agree with the PT, will discuss with the family regarding the discharge plan d/c plan tomorrow Patient is possibly thinking of TKR. We will discuss as an outpatient for that follow-up the patient Objective - Vital Signs/Intake and Output Vital Signs (last 24 hours): Temp Pulse Resp BP Pulse Ox 98 F 61 20 140/63 95 06/20/18 17:07 06/20/18 17:07 06/20/18 17:07 06/20/18 17:07 06/20/18 17:07 Intake and Output: 06/20/18 06/21/18 18:59 06:59 Intake Total 300 Balance 300 - Medications Medications: Current Medications Furosemide (Lasix) 40 mg PO DAILY [facility] Gabapentin (Neurontin) 100 mg PO DAILY [facility] Last Admin: 06/20/18 10:08 Dose: 100 mg Glimepiride (Amaryl) 2 mg PO DAILY [facility] Last Admin: 06/20/18 10:09 Dose: 2 mg Heparin Sodium (Porcine) (Heparin) 5,000 units SC Q8 [facility] Last Admin: 06/20/18 21:24 Dose: 5,000 units Levothyroxine Sodium (Synthroid) 50 mcg PO DAILY@0630 [facility] Pantoprazole Sodium (Protonix Ec Tab) 40 mg PO DAILY [facility] Last Admin: 06/20/18 10:05 Dose: 40 mg Rosuvastatin Calcium (Crestor) 10 mg PO HS [facility] Last Admin: 06/20/18 21:24 Dose: 10 mg Sitagliptin Phosphate (Januvia) 50 mg PO DAILY [facility] Last Admin: 06/20/18 10:05 Dose: 50 mg Tramadol HCl (Ultram) 50 mg PO BID [facility] Last Admin: 06/20/18 17:50 Dose: 50 mg - Labs Labs: 06/20/18 07:19 06/20/18 07:19
[2018-06-21] MEDS: Levothyroxine 50 MCG TAB PO SCH (05:50)
--- NOTE | 2018-06-21 08:52 | CP.PCM.PN ---
Subjective - Date & Time of Evaluation Date of Evaluation: 06/21/18 Time of Evaluation: 08:51 - Subjective Subjective: Patient complaining of more pain bilaterally in the knee. Having difficult time in getting up and walking. She is feeling slightly better otherwise. Tolerating the Ultram. She denies any chest pain. No shortness of breath noted. Appreciate orthopedic evaluation and input. On examination: Vital signs stable. Blood pressure is controlled much better. Chest good air entry Regular Hs Nontender abdomen Extremities 1+ pedal edema bilaterally present CAT scan of the knee is showing evidence of severe osteoarthritis with sclerotic changes Assessment and plan: 72-year-old female with a history of diabetes, advanced osteoarthritis involving the bilateral knee more on the right side. Also hypertension poorly controlled. Associate with bilateral pedal edema Patient had a frequent falls in the past. In my opinion patient is a candidate for subacute rehab, but if agree with the PT, will discuss with the family regarding the discharge plan d/c plan tomorrow Patient is possibly thinking of TKR. We will discuss as an outpatient for that follow-up the patient plan intraarticular inj in am Objective - Vital Signs/Intake and Output Vital Signs (last 24 hours): Temp Pulse Resp BP Pulse Ox 98.2 F 68 20 125/71 96 06/21/18 07:52 06/21/18 07:52 06/21/18 07:52 06/21/18 07:52 06/21/18 07:52 Intake and Output: 06/21/18 06/21/18 06:59 18:59 Intake Total 200 Balance 200 - Medications Medications: Current Medications Furosemide (Lasix) 40 mg PO DAILY [facility] Gabapentin (Neurontin) 100 mg PO DAILY [facility] Last Admin: 06/20/18 10:08 Dose: 100 mg Glimepiride (Amaryl) 2 mg PO DAILY [facility] Last Admin: 06/20/18 10:09 Dose: 2 mg Heparin Sodium (Porcine) (Heparin) 5,000 units SC Q8 [facility] Last Admin: 06/21/18 05:50 Dose: 5,000 units Levothyroxine Sodium (Synthroid) 50 mcg PO DAILY@0630 [facility] Last Admin: 06/21/18 05:50 Dose: 50 mcg Pantoprazole Sodium (Protonix Ec Tab) 40 mg PO DAILY [facility] Last Admin: 06/20/18 10:05 Dose: 40 mg Rosuvastatin Calcium (Crestor) 10 mg PO [facility] Last Admin: 06/20/18 21:24 Dose: 10 mg Sitagliptin Phosphate (Januvia) 50 mg PO DAILY [facility] Last Admin: 06/20/18 10:05 Dose: 50 mg Tramadol HCl (Ultram) 50 mg PO BID [facility] Last Admin: 06/20/18 17:50 Dose: 50 mg - Labs Labs: 06/20/18 07:19 06/20/18 07:19
[2018-06-21] MEDS: Pantoprazole 40 mg EC Tab PO SCH (10:03)
--- NOTE | 2018-06-21 12:26 | CARD ---
APPROVED REPORT Date of service: 06/19/2018 EXAM: Two-dimensional and M-mode echocardiogram with Doppler and color Doppler. Other Information Quality : GoodRhythm : INDICATION Chest Pain Palpitations RISK FACTORS Diabetes 2D DIMENSIONS IVSd1.4 (0.7-1.1cm)LVDd4.2 (3.9-5.9cm) PWd1.3 (0.7-1.1cm)LA Wnajdo25 (18-58mL) LVDs2.6 (2.5-4.0cm)FS (%) 38.4 % LVEF (%)69.0 (>50%)LVEF (Saavedra's)67.12 % IVC0.00 cm M-Mode DIMENSIONS RVDd1.99 (2.1-3.2cm)Left Atrium (MM)4.36 (2.5-4.0cm) IVSd0.96 (0.7-1.1cm)Aortic Root3.41 (2.2-3.7cm) LVDd5.24 (4.0-5.6cm)Aortic Cusp Exc.2.08 (1.5-2.0cm) PWd0.96 (0.7-1.1cm)FS (%) 50 % LVDs2.62 (2.0-3.8cm)LVEF (%)70 (>50%) Mitral Valve MV E Gcabsabx13.4cm/sMV A Thumrvao05.5cm/sE/A ratio0.7 TDI Lateral E' Peak V5.32cm/sMedial E' Peak V5.25cm/sE/Lateral E'13.2 E/Medial E'13.4 Tricuspid Valve TR Peak Dpqptxxs906wp/sTR Peak Gr.74piNtTUVV90dmRy LEFT VENTRICLE The left ventricle is normal size. There is mild concentric left ventricular hypertrophy. The left ventricular function is normal. The left ventricular ejection fraction is within the normal range. No regional wall motion abnormalities noted. Transmitral Doppler flow pattern is Grade I-abnormal relaxation pattern. No left ventricle thrombus noted on this study. There is no ventricular septal defect visualized. There is no left ventricular aneurysm. There is no mass noted in the left ventricle. RIGHT VENTRICLE The right ventricle is normal size. There is normal right ventricular wall thickness. The right ventricular systolic function is normal. ATRIA The left atrium size is normal. The right atrium size is normal. The interatrial septum is intact with no evidence for an atrial septal defect. AORTIC VALVE The aortic valve is normal in structure and function. No aortic regurgitation is present. There is no aortic valvular stenosis. There is no aortic valvular vegetation. MITRAL VALVE The mitral valve is normal in structure and function. There is no evidence of mitral valve prolapse. There is no mitral valve stenosis. There is no mitral valve regurgitation noted. TRICUSPID VALVE The tricuspid valve is normal in structure and function. There is no tricuspid valve regurgitation noted. There is no tricuspid valve prolapse or vegetation. There is no tricuspid valve stenosis. PULMONIC VALVE The pulmonary valve is normal in structure and function. There is no pulmonic valvular regurgitation. There is no pulmonic valvular stenosis. GREAT VESSELS The aortic root is normal in size. The ascending aorta is normal in size. The pulmonary artery is normal. The IVC is normal in size and collapses >50% with inspiration. PERICARDIAL EFFUSION The pericardium appears normal. There is no pleural effusion. <Conclusion> There is mild concentric left ventricular hypertrophy. The left ventricular function is normal. The left ventricular ejection fraction is within the normal range. No regional wall motion abnormalities noted.
--- NOTE | 2018-06-21 13:11 | CARD ---
APPROVED REPORT Date of service: 06/18/2018 EKG Measurement Heart [id number] CO [id number] <Conclusion> Sinus rhythm with 1st degree AV block Otherwise normal ECG
--- NOTE | 2018-06-21 20:06 | CP.PCM.PN ---
Subjective - Date & Time of Evaluation Date of Evaluation: 06/21/18 Time of Evaluation: 09:40 - Subjective Subjective: Patient with b/l knee pains No cardiac symptoms Review of Systems - Review of Systems All systems: reviewed and no additional remarkable complaints except - Constitutional Additional comments: no fever/chills - Cardiovascular Cardiovascular: As Per HPI - Respiratory Respiratory: As Per HPI - Gastrointestinal Additional comments: no n/v - Musculoskeletal Musculoskeletal: As Per HPI - Integumentary Additional comments: no redness - Neurological Neurological: As Per HPI - Hematologic/Lymphatic Hematologic: absent: As Per HPI, Easy Bleeding, Easy Bruising, Lymphadenopathy, Other Physical Exam - Constitutional Appears: Well, No Acute Distress Additional comments: patient seen walking around room, encouraged to use walker by PT she is able to walk and transfer independently, but is unsteady no obvious painful distress with walking, but does favor right knee and limp - Head Exam Head Exam: ATRAUMATIC - Neck Exam Neck exam: Positive for: Full Rom, Normal Inspection - Extremities Exam Additional comments: Right knee: no laxity to varus, valgus, ant post drawer, hari B calves soft NT homans, but noted sweling to legs, mild sensation intact no effusion noted on left knee, full ROM, no tender not warm - Expanded Upper Extremities Exam Left Shoulder exam: tenderness over AC joint, normal inspection (mildly limited ROM due to pain) Neuro motor exam: finger 2-5 abduction intact, thumb abduction, thumb IP flexion intact, thumb opposition intact, wrist extension intact Neurosensory exam: median nerve intact, radial nerve intact, ulnar nerve intact Vascular exam: radial pulse - Expanded Lower Extremities Exam Right Knee exam: effusion (moderate effusion, no erythema, mild warmth consistent with arthritis, non tender), full ROM (5-95 then complains of some tightness in back of right knee) Lower Leg Exam: swelling (mild peripheral swelling) Ankle exam: FULL ROM, NORMAL INSPECTION - Neurological Exam Neurological exam: Alert, Oriented x3 - Psychiatric Exam Psychiatric exam: Normal Affect, Normal Mood - Skin Skin Exam: Dry, Intact, Normal Color, Warm Assessment & Plan (1) Primary osteoarthritis of right knee Assessment and Plan: clinically this is consistent with severe tricompartmental knee DJD, afeb, no leukocytosis, no erythema, mild pain clinically, minimal pain with ROM not suggestive of infection patient had injection 1 month ago, so not indicated for another injection at this time plain xrays ordered B knees will f/u official CT scan results prelim dopplers negative for DVT recommend PT/OT for walker ambulation training advised patient that she has severe right knee arthritis and is indicated for right total knee replacement. Patient verbalized understanding and states that she does not want any surgery on her knee. She says she wants more physical therapy because that helps her. Patient can follow up as outpatient [phone] d/w Dr. Walters, agrees with above Status: Acute (2) Arthritis of left acromioclavicular joint Assessment and Plan: no acute changes on xrays recommend PT/OT Status: Acute (3) Impingement syndrome, shoulder, left Status: Acute Pedal edema r/o CHF Check ECHO Friday Objective - Vital Signs/Intake and Output Vital Signs (last 24 hours): Temp Pulse Resp BP Pulse Ox 97.5 F L 59 L 20 155/69 H 98 06/21/18 16:00 06/21/18 16:00 06/21/18 16:00 06/21/18 16:00 06/21/18 16:00 - Medications Medications: Current Medications Furosemide (Lasix) 40 mg PO DAILY [facility] Last Admin: 06/21/18 10:02 Dose: 40 mg Gabapentin (Neurontin) 100 mg PO DAILY [facility] Last Admin: 06/21/18 10:02 Dose: 100 mg Glimepiride (Amaryl) 2 mg PO DAILY [facility] Last Admin: 06/21/18 10:02 Dose: 2 mg Heparin Sodium (Porcine) (Heparin) 5,000 units SC Q8 [facility] Last Admin: 06/21/18 13:25 Dose: 5,000 units Levothyroxine Sodium (Synthroid) 50 mcg PO DAILY@0630 [facility] Last Admin: 06/21/18 05:50 Dose: 50 mcg Pantoprazole Sodium (Protonix Ec Tab) 40 mg PO DAILY [facility] Last Admin: 06/21/18 10:03 Dose: 40 mg Rosuvastatin Calcium (Crestor) 10 mg PO HS [facility] Last Admin: 06/20/18 21:24 Dose: 10 mg Sitagliptin Phosphate (Januvia) 50 mg PO DAILY [facility] Last Admin: 06/21/18 10:02 Dose: 50 mg Tramadol HCl (Ultram) 50 mg PO BID [facility] Last Admin: 06/21/18 17:37 Dose: 50 mg - Labs Labs: 06/20/18 07:19 06/20/18 07:19
[2018-06-21 23:39] VITALS: O2SAT 97
[2018-06-22] MEDS: Levothyroxine 50 MCG TAB PO SCH (05:44)
[2018-06-22 07:12] VITALS: BP 134/71; PULSE 59; TEMP 97.9
--- NOTE | 2018-06-22 09:32 | CP.PCM.PN ---
Subjective - Date & Time of Evaluation Date of Evaluation: 06/22/18 Time of Evaluation: 09:30 - Subjective Subjective: Patient states she is feeling better but still has knee pain. No complaints of shoulder pain. at this time. Review of Systems - Review of Systems All systems: reviewed and no additional remarkable complaints except - Musculoskeletal Musculoskeletal: As Par HPI - Integumentary Integumentary: UNREMARKABLE Objective - Vital Signs/Intake and Output Vital Signs (last 24 hours): Temp Pulse Resp BP Pulse Ox 97.9 F 59 L 20 134/71 97 06/22/18 07:09 06/22/18 07:09 06/22/18 07:09 06/22/18 07:09 06/22/18 07:09 Intake and Output: 06/22/18 06/22/18 06:59 18:59 Intake Total 350 Balance 350 - Medications Medications: Current Medications Furosemide (Lasix) 40 mg PO DAILY [facility] Last Admin: 06/21/18 10:02 Dose: 40 mg Gabapentin (Neurontin) 100 mg PO DAILY [facility] Last Admin: 06/21/18 10:02 Dose: 100 mg Glimepiride (Amaryl) 2 mg PO DAILY [facility] Last Admin: 06/21/18 10:02 Dose: 2 mg Heparin Sodium (Porcine) (Heparin) 5,000 units SC Q8 [facility] Last Admin: 06/22/18 05:44 Dose: 5,000 units Levothyroxine Sodium (Synthroid) 50 mcg PO DAILY@0630 [facility] Last Admin: 06/22/18 05:44 Dose: 50 mcg Pantoprazole Sodium (Protonix Ec Tab) 40 mg PO DAILY [facility] Last Admin: 06/21/18 10:03 Dose: 40 mg Rosuvastatin Calcium (Crestor) 10 mg PO HS [facility] Last Admin: 06/21/18 21:39 Dose: 10 mg Sitagliptin Phosphate (Januvia) 50 mg PO DAILY [facility] Last Admin: 06/21/18 10:02 Dose: 50 mg Tramadol HCl (Ultram) 50 mg PO BID [facility] Last Admin: 06/21/18 17:37 Dose: 50 mg - Labs Labs: 06/20/18 07:19 06/20/18 07:19 - Constitutional Appears: Well, No Acute Distress - Neck Exam Neck Exam: Full ROM, Normal Inspection - Respiratory Exam Respiratory Exam: NORMAL BREATHING PATTERN - Cardiovascular Exam Additional comments: +DP/PT pulses - Extremities Exam Additional comments: right knee: no erythema, skin intact, sitting in chair with knee flexed to 90 comfortably. effusion slightly improved. Generalized mild tenderness to knee. +DP/PT pulses calves soft Nt neg homans, sensation intact - Neurological Exam Neurological Exam: Alert, Awake, Oriented x3 Neuro motor strength exam: Left Lower Extremity: 5, Right Lower Extremity: 5 - Psychiatric Exam Psychiatric exam: Normal Affect, Normal Mood - Skin Skin Exam: Dry, Intact, Normal Color, Warm Assessment and Plan (1) Primary osteoarthritis of right knee Assessment & Plan: PT/OT orthopedically stable for d/c to rehab for injection per Dr. Chen VTE proph patient to f/u Dr. Ricks (Dr. Walters does not do joint replacements) prn [phone] d/w Dr. Walters/Rambo, agree with above Status: Acute (2) Arthritis of left acromioclavicular joint Status: Acute (3) Impingement syndrome, shoulder, left Status: Acute
[2018-06-22] MEDS: Pantoprazole 40 mg EC Tab PO SCH (09:47)
[2018-06-22] MEDS ORDERED: methylPREDNISolone Depo 80 mg/ml Inj IM ONE (11:30)
--- NOTE | 2018-06-22 18:17 | CP.PCM.DIS ---
Provider - Provider Date of Admission: 06/18/18 15:40 Attending physician: Anand Chen MD Consults: 06/18/18 20:31 Case Management Referral Routine Comment: Physician Instructions: Reason For Exam: Reason for Referral: Discharge Planning Inpatient SPEECH LANGUAGE PATHOLOGIST PRN Core Measures Referral Routine Comment: Physician Instructions: Reason For Exam: h/o CHF 06/19/18 09:59 Orthopedic Consult Routine Comment: Consulting Provider: Vishal Walters Consulting Physician: Vishal Walters Reason for Consult: Rt knee swelling 06/19/18 10:00 Cardiology Consult Routine Comment: Consulting Provider: Los Garcia Consulting Physician: Los Garcia Reason for Consult: chest pain Time Spent in preparation of Discharge (in minutes): 45 Hospital Course - Lab Results Lab Results: Most Recent Lab Values WBC 6.2 K/uL (4.8-10.8) 06/20/18 07:19 RBC 3.29 Mil/uL (3.80-5.20) L 06/20/18 07:19 Hgb 10.1 g/dL (11.0-16.0) L 06/20/18 07:19 Hct 28.5 % (34.0-47.0) L 06/20/18 07:19 MCV 86.5 fL (81.0-99.0) 06/20/18 07:19 MCH 30.6 pg (27.0-31.0) 06/20/18 07:19 MCHC 35.4 g/dL (33.0-37.0) 06/20/18 07:19 RDW 13.5 % (11.5-14.5) 06/20/18 07:19 Plt Count 252 K/uL (130-400) 06/20/18 07:19 MPV 8.0 fL (7.2-11.7) 06/20/18 07:19 Neut % (Auto) 53.9 % (50.0-75.0) 06/20/18 07:19 Lymph % (Auto) 30.8 % (20.0-40.0) 06/20/18 07:19 [place] % (Auto) 9.1 % (0.0-10.0) 06/20/18 07:19 Eos % (Auto) 5.5 % (0.0-4.0) H 06/20/18 07:19 Baso % (Auto) 0.7 % (0.0-2.0) 06/20/18 07:19 Neut # (Auto) 3.3 K/uL (1.8-7.0) 06/20/18 07:19 Lymph # (Auto) 1.9 K/uL (1.0-4.3) 06/20/18 07:19 [place]hin # (Auto) 0.6 K/uL (0.0-0.8) 06/20/18 07:19 Eos # (Auto) 0.3 K/uL (0.0-0.7) 06/20/18 07:19 Baso # (Auto) 0.0 K/uL (0.0-0.2) 06/20/18 07:19 Sodium 132 mmol/L (132-148) 06/20/18 07:19 Potassium 4.3 mmol/L (3.6-5.2) 06/20/18 07:19 Chloride 98 mmol/L (98-107) 06/20/18 07:19 Carbon Dioxide 26 mmol/L (22-30) 06/20/18 07:19 Anion Gap 12 (10-20) 06/20/18 07:19 BUN 27 mg/dL (7-17) H 06/20/18 07:19 Creatinine 1.3 mg/dL (0.7-1.2) H 06/20/18 07:19 Est GFR ( Amer) 48 06/20/18 07:19 Est GFR (Non-Af Amer) 40 06/20/18 07:19 POC Glucose (mg/dL) 122 mg/dL (65-110) H 06/22/18 11:10 Random Glucose 152 mg/dL (65-105) H 06/20/18 07:19 Calcium 9.8 mg/dl (8.6-10.4) 06/20/18 07:19 Magnesium 2.0 mg/dL (1.6-2.3) 06/18/18 14:10 Total Bilirubin 0.5 mg/dL (0.2-1.3) 06/20/18 07:19 AST 27 U/L (14-36) 06/20/18 07:19 ALT 29 U/L (9-52) 06/20/18 07:19 Alkaline Phosphatase 115 U/L (38-126) 06/20/18 07:19 NT-Pro-B Natriuret Pep 61.6 pg/mL (0-900) 06/18/18 14:10 Total Protein 7.0 g/dL (6.3-8.3) 06/20/18 07:19 Albumin 4.1 g/dL (3.5-5.0) 06/20/18 07:19 Globulin 2.9 gm/dL (2.2-3.9) 06/20/18 07:19 Albumin/Globulin Ratio 1.4 (1.0-2.1) 06/20/18 07:19 - Hospital Course Hospital Course: Chief complaint: frequent falls and leg swelling with pain HPI: 72-year-old female with recent hospitalization at [facility]. Patient had a hospitalized with multiple times with the diagnosis of renal insufficiency, chronic leg swelling, and diastolic heart failure. Patient has a history of chronic diabetes, controlled well. Hypertension fairly controlled. History of chronic renal failure. Hypothyroidism. Past medical history: Hypertension Hypertension hypothyroidism hypercholesterolemia renal insufficiency. Leg swelling leg edema Surgical history: Cervical spinal surgery in 2006 Bilateral cataract Appendectomy Cholecystectomy Thyroidectomy Pelvic tumor removal . Family history: Father mother of natural cause and also had heart disease One sister had a heart surgery At times he uses cane for walking and as well as walker 2 kids Social history: Non-smoker nonalcoholic Drinks coffee daily Currently living by herself. She is able to manage her activities daily. Current medications reviewed from the chart. Levothyroxine 50 mcg daily Carvedilol 3.125 twice a day Protonix 40 daily. Amaryl 2 mg daily Gabapentin 600 mg daily Folic acid 1 mg daily Diclofenac 75 mg daily Vitamin D 50,000 units weekly. Januvia 50 daily Lasix 80 mg twice a day Potassium chloride 20 mg. Crestor 40 mg There is also torsemide, metolazone and Spironolactone noted in the chart Patient is not clear what is she taking at this time Review of system: Sometimes headache Right ear pain at times noted on hard of hearing. History of cataract bilaterally. No chest pain or shortness of breath denies any GI symptoms bilateral knee pain noted.Leg swelling chronically noted On examination: Blood pressure vital signs stable.Elevated weight noted Chest good air entry Regular heart sound Abdomen nontender. Patient has a moderate to severe bilateral pedal edema involving both lower extremities below the knee joint Labs:October 2017 CBC WBC 6.8 hemoglobin 10.8 platelet 244 Chemistry BUN 19, creatinine 1.1 otherwise rest of the vitals negative Echocardiogram for September 2017 LVH noted systolic function normal right ventricular function rosa EKG normal sinus rhythm no ST-T changes during that time. Assessment/recommendation: 72-year-old female elderly living by herself Hypertension chronically noted, c ontrolled well now History of hypercholesterolemia patient is on multiple cholesterol medication, frequent falls noted worsening weakness worsening rt knee pain and swelling degenarative oa and possible infection cant be rulled out PT pain ortho eval Course in the hospital: Patient had CAT scan of the bilateral knee. Right-sided CAT scan of the knee showing evidence of severe osteoarthritic changes. Leg swelling was noted, DVT study negative. Patient started on some pain management. Seen by orthopedic surgery. Conservative treatment is not working. Recommended total knee replacement. But the patient does not want it at this time. Patient clinically otherwise stable. Today patient received bilateral knee intra-articular corticosteroid injection. Patient is able to walk with a walker. I discussed with the patient regarding the possible surgical intervention. Patient will be thinking about that. Patient can be discharged home today. She will follow-up as an outpatient Assessment: 72-year-old female with a history of recurrent cellulitis of the leg. Recurrent pedal edema Hypertension. Diabetes. Severe osteoarthritis of the knee. History: Fall. Debility. Clinically patient is stable. Cleared by the physical therapy. Stable to go home. She will follow-up with the physical therapy as an outpatient. Head medications reviewed Patient will be taking tramadol per pain medicine. I will follow-up the patient in my office. Discharge Exam - Head Exam Head Exam: ATRAUMATIC Discharge Plan - Follow Up Plan Condition: GOOD Disposition: HOME/ ROUTINE Instructions: Heart Failure, Adult (DC), Osteoarthritis (DC) Referrals: Anand Chen MD [Staff Provider] -
== END 2018-06-22 18:16 | disposition home or self-care (01) | DRG 554 ==
LOC: C.ER 12:54 → C.9E 15:40 → C.3T 18:30 → C.6T 06-22 15:38
PROVIDERS: ADMIT Internal Medicine; ATTEND Internal Medicine
DX: M17.11 Unilateral primary osteoarthritis, right knee (principal); I13.0 Hypertensive heart and chronic kidney disease with heart failure and stage 1 through stage 4 chronic kidney disease, or unspecified chronic kidney disease; I50.30 Unspecified diastolic (congestive) heart failure; G89.29 Other chronic pain; M75.42 Impingement syndrome of left shoulder; M19.012 Primary osteoarthritis, left shoulder; N18.9 Chronic kidney disease, unspecified; R29.6 Repeated falls; E11.22 Type 2 diabetes mellitus with diabetic chronic kidney disease; E11.40 Type 2 diabetes mellitus with diabetic neuropathy, unspecified; E78.00 Pure hypercholesterolemia, unspecified; Z87.891 Personal history of nicotine dependence; H91.91 Unspecified hearing loss, right ear; E03.9 Hypothyroidism, unspecified; M47.9 Spondylosis, unspecified

== ENCOUNTER 2018-08-13 11:56 | Outpatient (CLI) | payer MEDICARE | END 2018-08-13 11:57 | disposition home or self-care (01) | LOC: C.MRIC 11:57 ==